=== PATIENT | male | born 1955 | race Caucasian/White ===

== ENCOUNTER 2022-08-07 17:00 | Emergency (ER) | payer MEDICARE, SELFPAY ==
[2022-08-07 17:01] VITALS: BP 228/114; PULSE 91; RESP 17; TEMP 36.3; O2SAT 97; BMI 28.8
[2022-08-07 17:30] VITALS: BP 204/117; PULSE 88
--- NOTE | 2022-08-07 17:34 | EX.ED.DYSGE1 ---
HPI History of Present Illness Chief Complaint: Hypertension Informant: patient Onset/Context/Timing Onset: Today Context: Gradual Onset Timing: Continuous Worsened by: Nothing Relieved by: Nothing Narrative Narrative: Patient presents with elevated blood pressure that was noticed today. Patient states he went to the [facility] clinic for routine physical. Patient states that they noted his blood pressure was elevated there. They started him on lisinopril 20 mg. Patient states he took 1 dose of this today. Patient states his blood pressure still is elevated. Patient states he was told to come to the emergency department to get some medicine through an IV to bring it down. Patient denies any symptoms. Patient states I feel fine. [facility] Medical History (Updated 08/07/22 @ 19:[address] Jeovanny Ontiveros DO) HTN (hypertension) Medical History no medical history no medical history Home Medications lisinopril 20 mg tablet 20 mg PO DAILY 08/07/22 [History Last Taken Unknown] tamsulosin 0.4 mg capsule 0.4 mg PO QHS 08/07/22 [History Last Taken Unknown] Allergy/AdvReac Type Severity Reaction Status Date / Time Penicillins Allergy Swelling Verified 08/07/22 17:04 Tetanus Vaccines and Toxoid Allergy Other Verified 08/07/22 17:04 HOT PEPPERS AdvReac Swelling Uncoded 08/07/22 17:04 Surgical History no surgical history no surgical history Social History Smoking Status: Former smoker ROS ROS ED Constitutional Constitutional ED: Denies chills or fever(s) Eyes Eyes: Denies blurry vision or change in vision ENT ENT ED: Denies rhinorrhea or sore throat Cardiovascular Cardiovascular: Denies chest pain or palpitations Respiratory/Chest Respiratory/Chest: Denies cough or dyspnea Gastrointestinal Gastrointestinal: Denies nausea or vomiting Genitourinary Genitourinary ED: Reports dysuria; Denies urinary frequency Musculoskeletal Musculoskeletal: Denies back pain or neck pain Integumentary Denies abscess or rash Neurologic Neurologic: Denies headache(s) or weakness Allergic/Immunologic Allergic/Immunologic ED: Denies mouth swelling or urticaria EXAM Physical Exam Const Vital Signs: 08/07/22 17:01 08/07/22 17:30 08/07/22 17:54 Temperature 97.3 F L Temperature Source Temporal Pulse Rate 91 88 Respiratory Rate 17 Respiratory Effort Normal Non-Labored Respiratory Pattern Normal Blood Pressure 228/114 H 204/117 H Blood Pressure Mean 152 146 Pulse Ox 97 Oxygen Delivery Method Room Air 08/07/22 19:09 Temperature Temperature Source Pulse Rate 72 Respiratory Rate 14 Respiratory Effort Respiratory Pattern Blood Pressure 163/98 H Blood Pressure Mean 119 Pulse Ox 95 Oxygen Delivery Method Room Air Positive well nourished and well developed General Appearance ED: well developed and NAD HEENT Reports moist mucous membranes Neck supple and no JVD Resp normal respiratory effort and clear to auscultation bilaterally Cardio regular rate, regular rhythm and no murmurs GI normal to inspection, nondistended, normoactive bowel sounds and non-tender Palpation: soft Extremity normal to inspection General Extremety ED: Negative for edema or tenderness General Extremity: Negative for edema Neuro oriented x3, CN's II-XII intact bilaterally and no sensory deficits noted Sensorium / Orientation: alert Motor Exam: strength 5/5 throughout Psych mental status grossly normal Skin no rashes or lesions noted MDM MDM MDM Narrative Medical decision making narrative: Differential diagnosis includes hypertensive urgency, uncontrolled hypertension, electrolyte abnormality, acute kidney injury, cardiac dysrhythmia, and cardiac ischemia. EKG will be obtained to assess for cardiac dysrhythmia and cardiac ischemia. CBC will be obtained to assess for leukocytosis and anemia. Basic metabolic profile will be obtained to assess for acute kidney injury and electrolyte abnormality. High-sensitivity troponin will be obtained to assess for cardiac ischemia. Chest x-ray will be obtained to assess for cardiomegaly and congestive heart failure. Lab Data Attestation: I reviewed the patient's lab results. Lab results narrative: CBC was reviewed and was within normal limits. Basic metabolic profile was reviewed and showed a mild hyponatremia of 131. Glucose was 153. The remainder was within normal limits. High-sensitivity troponin was reviewed and was normal at 36. Labs: Laboratory Results - last 24 hr 08/07/22 08/07/22 17:25 17:25 WBC 6.4 RBC 4.46 L Hgb 13.3 Hct 40.3 MCV 90.4 MCH 29.8 MCHC 33.0 RDW Std Deviation 45.9 H RDW Coeff of Janet 13.9 Plt Count 195 MPV 9.5 Immature Gran % (Auto) 0.300 Neut % (Auto) 43.9 L Lymph % (Auto) 43.9 H [place] % (Auto) 8.3 Eos % (Auto) 3.0 Baso % (Auto) 0.6 Absolute Neuts (auto) 2.8 Absolute Lymphs (auto) 2.79 Nucleated RBC % 0 Sodium 131 L Potassium 3.8 Chloride 101 Carbon Dioxide 25.0 Anion Gap 5 BUN 15 Creatinine 1.25 Estim Creat Clear Calc 53.96 Est GFR (MDRD) Af Amer 74 Est GFR (MDRD) Non-Af 61 BUN/Creatinine Ratio 12.0 Glucose 153 H Calcium 9.5 Troponin I High Sens 36 Radiography Diagnostic Testing: Clinical Impression(s) from Imaging Studies Chest X-Ray 08/07/22 17:59 IMPRESSION: No radiographic evidence of acute cardiopulmonary disease. Electronically Signed: Hans Martinez MD at 18:10 EDT , PA and lateral chest x-ray was obtained. There are 2 views. On my independent interpretation, lung butler are clear. There is normal cardiac silhouette. Bony thorax is normal. There is no acute process noted. Radiologist also interpreted the x-ray and agrees. EKG Initial EKG: Interpretation: Sinus Rhythm (With occasional PVCs with a rate of 86) and Non-Specific ST Changes Comments: EKG was obtained. On my independent interpretation, it showed a normal sinus rhythm with a rate of 86. WA interval, QRS interval, and QTc intervals were all normal. [place] was normal. There are nonspecific ST-T wave changes. Prior EKG tracings: not available for review Prior: No Prior Treatment and Re-Evaluation :: Patient was given a dose of labetalol here. Patient blood pressure improved to 163/98. Patient remained asymptomatic here in the emergency department. Patient has a HEART score of 3. Patient was advised to continue to monitor his blood pressure. Patient was instructed to continue his lisinopril as prescribed. Patient was instructed to follow-up with his primary care physician in 5 to 7 days. Patient understood and was agreeable with the plan. All questions were answered. Discharge Plan Triage Chief Complaint: Hypertension ED Provider: Jeovanny Ontiveros Dx/Rx/DC Orders Clinical Impression: Hypertension Instructions: ED Hypertension, Established Prescriptions: No Action lisinopril 20 mg tablet 20 mg PO DAILY tamsulosin 0.4 mg capsule 0.4 mg PO QHS Primary Care Provider: Medical Brandy Simons Referrals: Medical Brandy Simons [Primary Care Provider] - 5-7 Days Disposition Disposition: Home, Self Care
--- NOTE | 2022-08-07 17:41 | EKG12_ITS ---
Test Reason : HTN Blood Pressure : / mmHG Vent. Rate : 086 BPM Atrial Rate : 086 BPM P-R Int : 200 ms QRS Dur : 110 ms QT Int : 408 ms P-R-T Axes : 006 004 -35 degrees QTc Int : 488 ms Sinus rhythm with occasional Premature ventricular complexes Inferior infarct , age undetermined Abnormal ECG Confirmed by ANTON HEATON ([id number]), associate editor MANUEL COY ([id number]) on 08/13/2022 7:31:17 AM Referred By: Jeovanny Ontiveros Confirmed By:ANTON HEATON
[2022-08-07] MEDS: Labetalol (Prefilled) 20 MG/4 ML IV (17:50)
--- NOTE | 2022-08-07 17:51 | NURSING ---
NO OLD EKGS
--- NOTE | 2022-08-07 17:59 | RAD_ITS ---
INDICATION: Hypertension EXAMINATION/TECHNIQUE: X-RAY - XR Chest 2 Views COMPARISON: None. FINDINGS: LUNGS: No consolidation, edema or effusion. No pneumothorax. MEDIASTINUM AND CARDIOVASCULAR STRUCTURES: Cardiac silhouette not enlarged. Central airways and mediastinal contour are unremarkable. RAD/Chest PA and Lateral IMPRESSION: No radiographic evidence of acute cardiopulmonary disease. Electronically Signed: Hans Martinez MD at 18:10 EDT ,
[2022-08-07 18:05] LABS: Absolute Lymphocyte Count 2.79 X10^3/uL (0.83-4.51); Absolute Neutrophil Count 2.8 X10^3/uL (2.0-7.7); Basophil# 0.04 X10^3/uL; Basophil% 0.6 % (0-1); Eosinophil# 0.19 X10^3/uL; Hematocrit 40.3 % (40-54); Hemoglobin 13.3 g/dL (13.0-16.5); Lymphocyte # 2.79 X10^3/ul (0.83-4.51); Lymphocyte % 43.9 % (19-41); Mean Corpuscular Hgb 29.8 pg (27.0-32.0); Mean Corpuscular Volume 90.4 fL (80-94); Mean Platelet Vol. 9.5 fl (6.2-12.0); Monocyte# 0.53 X10^3/uL; Monocyte% 8.3 % (0-10); NRBC Flagged by Analyzer 0 % (0-5); Neutrophil # 2.79 X10^3/uL (2.7-7.7); Neutrophil % 43.9 % (47-70); Platelet Count 195 K/mm3 (150-450); RBC Distribution Width CV 13.9 % (11.6-14.6); RBC Distribution Width SD 45.9 fl (35.1-43.9); Red Blood Count 4.46 M/mm3 (4.6-6.2); White Blood Count 6.4 K/mm3 (4.4-11.0)
[2022-08-07 18:21] LABS: Anion Gap 5 (5-15); BUN 15 mg/dL (7-18); Calcium,Total 9.5 mg/dL (8.5-10.1); Chloride 101 mmol/L (98-107); Creatinine, Serum 1.25 mg/dL (0.70-1.30); EST Glomerular Filtration Rate 61 mL/min (>60); Est Glom Filt Rate - Afr Amer 74 mL/min (>60); Estimated Creatinine Clearance 53.96 ml/min; Glucose 153 mg/dL (74-106); Potassium 3.8 mmol/L (3.5-5.1); Sodium Level 131 mmol/L (136-145); Troponin-I HS 36 pg/mL (3.0-78.0)
[2022-08-07 19:09] VITALS: BP 163/98; PULSE 72; RESP 14; O2SAT 95
== END 2022-08-07 19:45 | disposition home or self-care (01) ==
PROVIDERS: Emergency Provider Emergency Medicine; Referring Provider Emergency Medicine; Visit Provider Emergency Medicine
DX: I10 Essential (primary) hypertension (principal); Z87.891 Personal history of nicotine dependence; R30.0 Dysuria
CPT/HCPCS: 71046; 80048; 84484; 85025; 93005; 96374; 99284; A4216

== ENCOUNTER 2022-08-08 09:54 | Outpatient (CLI) | payer MEDICARE, SELFPAY ==
[2022-08-08 11:14] LABS: Hemoglobin A1c 6.8 % (3.8-5.6)
[2022-08-08 11:17] LABS: Cholesterol 223 mg/dL (200); High Density Lipoprotein 44 mg/dL; PSA,Total - Annual Screen 6.03 ng/mL (0.00-4.00); Triglycerides 92 mg/dL; Very Low Density Lipoprotein 18 mg/dL (5-40)
[2022-08-08 16:45] LABS: T4 Free Direct 0.48 ng/dL (0.76-1.46)
== END 2022-08-08 23:59 | disposition home or self-care (01) ==
PROVIDERS: Referring Provider Nurse Practitioner Family; Visit Provider Nurse Practitioner Family
DX: I10 Essential (primary) hypertension (principal); B82.9 Intestinal parasitism, unspecified; Z12.5 Encounter for screening for malignant neoplasm of prostate; R94.6 Abnormal results of thyroid function studies
CPT/HCPCS: 36415; 80061; 83036; 84153; 84439; 84443; 87177; 87209; G0103

== ENCOUNTER → 2022-09-13 | Outpatient (CLI) | payer MEDICARE, SELFPAY ==
[2022-09-13 10:34] LABS: Hematocrit 39.1 % (40-54); Hemoglobin 13.1 g/dL (13.0-16.5); Mean Corp Hgb Conc 33.5 g/dL (32-36); Mean Corpuscular Hgb 29.8 pg (27.0-32.0); Mean Corpuscular Volume 88.9 fL (80-94); Mean Platelet Vol. 9.1 fl (6.2-12.0); Platelet Count 172 K/mm3 (150-450); RBC Distribution Width CV 13.1 % (11.6-14.6); RBC Distribution Width SD 42.9 fl (35.1-43.9); White Blood Count 6.2 K/mm3 (4.4-11.0)
[2022-09-13 11:05] LABS: Vitamin D,25 Hydroxy 35.8 ng/mL
[2022-09-13 11:17] LABS: Anion Gap 6 (5-15); BUN 29 mg/dL (7-18); BUN/Creat Ratio 16.4 RATIO (10-20); Calcium,Total 9.6 mg/dL (8.5-10.1); Chloride 96 mmol/L (98-107); Creatinine, Serum 1.77 mg/dL (0.70-1.30); EST Glomerular Filtration Rate 41 mL/min (>60); Est Glom Filt Rate - Afr Amer 49 mL/min (>60); Glucose 172 mg/dL (74-106); PSA,Total- Diagnostic 4.72 ng/mL (0.0-4.0); Potassium 4.4 mmol/L (3.5-5.1); Sodium Level 127 mmol/L (136-145); T4 Free Direct 0.92 ng/dL (0.76-1.46)
[2022-09-13 14:11] LABS: Microalbumin,Random Urine 31.1 mg/L (NO RANGE EST.)
== END | disposition home or self-care (01) ==
LOC: LAB 10:05
PROVIDERS: Referring Provider Nurse Practitioner Family; Visit Provider Nurse Practitioner Family
DX: I10 Essential (primary) hypertension (principal); E11.9 Type 2 diabetes mellitus without complications; E03.9 Hypothyroidism, unspecified; R97.20 Elevated prostate specific antigen [PSA]
CPT/HCPCS: 36415; 80048; 82043; 82306; 84153; 84439; 84443; 85027

== ENCOUNTER → 2022-09-27 | Outpatient (CLI) | payer MEDICARE, SELFPAY ==
[2022-09-27 11:05] LABS: Anion Gap 7 (5-15); BUN 21 mg/dL (7-18); BUN/Creat Ratio 12.5 RATIO (10-20); Calcium,Total 9.4 mg/dL (8.5-10.1); Chloride 101 mmol/L (98-107); Creatinine, Serum 1.68 mg/dL (0.70-1.30); EST Glomerular Filtration Rate 43 mL/min (>60); Est Glom Filt Rate - Afr Amer 52 mL/min (>60); Glucose 151 mg/dL (74-106); Potassium 4.5 mmol/L (3.5-5.1); Sodium Level 131 mmol/L (136-145)
== END | disposition home or self-care (01) ==
LOC: LAB 09:57
PROVIDERS: Referring Provider Nurse Practitioner Family; Visit Provider Nurse Practitioner Family
DX: N17.9 Acute kidney failure, unspecified (principal); E87.1 Hypo-osmolality and hyponatremia
CPT/HCPCS: 36415; 80048

== ENCOUNTER → 2022-10-10 | Outpatient (CLI) | payer MEDICARE, SELFPAY ==
--- NOTE | 2022-10-10 13:14 | STRESSREP ---
Stress Test Report Pharmacologic myocardial perfusion stress test. 67-year-old man with a history of dyspnea Resting EKG demonstrates sinus rhythm with a rate of 67 bpm and previous inferior infarct with T wave inversion in lead III. Resting blood pressure is 172/74 mmHg. 0.4 mg of regadenoson was infused per usual protocol followed by rapid intravenous saline flush injection. Continuous EKG monitoring was performed. The maximum heart rate was 94 bpm which was 62% of max impacted heart rate the maximum workload was 1 metabolic equivalent. At rest Q wave were noted in the inferior leads and during infusion there was approximately 1.[address] elevation noted in V3 and [address] elevation noted in lead aVF with reciprocal changes noted in 1 and aVL. Occasional premature ventricular complex was noted and these changes returned to normal postinfusion. No clinical angina was noted. The final blood pressure was 160/82 Myocardial perfusion protocol. 11.8 mCi of technetium 99m sestamibi was injected at rest. 0.4 mg of regadenoson was infused per usual protocol. At peak infusion 34.2 mCi of technetium 99m sestamibi was injected stress images were obtained stress and rest images were reconstructed and compared in the short axis vertical long and horizontal long axis. Gated images were also obtained. Perfusion SPECT analysis: Review of the stress images demonstrate normal uptake of tracer noted in all areas of the myocardium except for the inferior wall with a large perfusion defect involving the entire inferior wall. The resting images similar demonstrated normal uptake of tracer noted in all areas of the myocardium except for the inferior wall. The above is suggestive of an extensive previous inferior infarct. No ischemia is noted though mild tanvir-infarct ischemia cannot be completely excluded.. Gated SPECT analysis: The gated ejection fraction is 27%. Conclusion: Abnormal pharmacologic myocardial perfusion stress test. Reduced ejection fraction. 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
== END | disposition home or self-care (01) ==
PROVIDERS: Referring Provider Nurse Practitioner Family; Visit Provider Nurse Practitioner Family
DX: R06.00 Dyspnea, unspecified (principal); R94.31 Abnormal electrocardiogram [ECG] [EKG]; Z82.49 Family history of ischemic heart disease and other diseases of the circulatory system
CPT/HCPCS: 78452; 93017; A9500; A4216; J2785

== ENCOUNTER → 2022-10-23 | Outpatient (CLI) | payer MEDICARE, SELFPAY ==
[2022-10-23 10:40] LABS: ALB/GLOB Ratio 0.9 RATIO (0.9-2.4); AST(SGOT) 16 U/L (15-37); Alanine Aminotransfer ALT/SGPT 18 U/L (16-61); Albumin, Serum 3.9 g/dL (3.2-5.0); Alkaline Phosphatase 79 U/L (45-117); Anion Gap 5 (5-15); BUN 25 mg/dL (7-18); BUN/Creat Ratio 15.6 RATIO (10-20); CPK Total, Creatine Kinase 53 U/L (39-308); Chloride 101 mmol/L (98-107); Cholesterol 154 mg/dL (200); EST Glomerular Filtration Rate 46 mL/min (>60); Est Glom Filt Rate - Afr Amer 55 mL/min (>60); Globulin 4.2 g/dL (2.2-4.2); Glucose 126 mg/dL (74-106); High Density Lipoprotein 37 mg/dL; Potassium 4.8 mmol/L (3.5-5.1); Protein, Total 8.1 g/dL (6.4-8.2); Sodium Level 133 mmol/L (136-145); Triglycerides 117 mg/dL; Very Low Density Lipoprotein 23 mg/dL (5-40)
== END | disposition home or self-care (01) ==
LOC: LAB 08:35
PROVIDERS: Referring Provider Internal Medicine Cardiovascular Disease; Visit Provider Internal Medicine Cardiovascular Disease
DX: I42.9 Cardiomyopathy, unspecified (principal); E11.51 Type 2 diabetes mellitus with diabetic peripheral angiopathy without gangrene; I73.9 Peripheral vascular disease, unspecified; E78.5 Hyperlipidemia, unspecified; I25.10 Atherosclerotic heart disease of native coronary artery without angina pectoris; I10 Essential (primary) hypertension
CPT/HCPCS: 36415; 80053; 80061; 82550

== ENCOUNTER → 2022-11-11 | Outpatient (CLI) | payer MEDICARE, SELFPAY ==
--- NOTE | 2022-11-11 09:20 | ART_ITS ---
Reason For Study: PVD Procedure A bilateral lower extremity continuous wave Doppler with analog waveform analysis and ankle brachial indexes. Left Segmental Pressures Left brachial= 143mmHg. Left posterior tibial artery = 64mmHg. Left dorsalis pedis artery = 57mmHg. Left digit = 57 mmHg. The left posterior tibial artery waveforms are monophasic. The left dorsalis pedis waveforms are monophasic. Right Segmental Pressures Right brachial= 146mmHg. Right posterior tibial artery = 128mmHg. Right dorsalis pedis artery = 124mmHg. Right digit = 62 mmHg. The right posterior tibial artery waveforms are triphasic. The right dorsalis pedis waveforms are biphasic. Indices The right resting ankle brachial index is 0.88. The right ankle brachial index by the posterior tibial artery is 0.88. The right ankle brachial index by the dorsalis pedis is 0.85. The right digital-brachial index is 0.42. The left resting ankle brachial index is 0.44. The left ankle brachial index by the posterior tibial artery is 0.44. The left ankle brachial index by the dorsalis pedis is 0.39. The left digital-brachial index is 0.39. VL/Ankle Brachial Index Interpretation Summary Right LINDA 0.88, moderate arterial insufficiency. Doppler/PVR waveforms of the r ight ankle moderately diminished at rest. Left LINDA 0.44, severe arterial insufficiency. Doppler/PVR waveforms of the left ankle severely diminished at rest. Ordering Physician: Gabriela Colunga Referring Physician: [facility] Performed By: Dianelys Wyatt RVT, RDCS
--- NOTE | 2022-11-11 09:20 | ECHOCS_ITS ---
Reason For Study: SOB Procedure This was a 2D Doppler, Color Flow transthoracic echocardiogram. The study was technically difficult. Contrast injection was performed. Exam performed in department. Left Ventricle Moderately dilated left ventricle. The left ventricular ejection fraction is 35 %. There is moderate global hypokinesis of the left ventricle. Severe posterior and inferior hypokinesis. Right Ventricle Normal right ventricle. Atria The left and right atria are normal. Bubble contrast study is negative for PFO/ASD. Mitral Valve Mild (1+) mitral valve insufficiency. Tricuspid Valve Trivial tricuspid valve insufficiency. Unable to estimate RV systolic pressure due to insufficient tricuspid regurgitant envelope. Aortic Valve Aortic sclerosis, no stenosis. Pulmonic Valve The pulmonic valve is not well visualized. Great Vessels Normal sized aortic root. Pericardium/Pleural No pericardial effusion. Medication 22 gauge I.V. with prn adaptor inserted into right arm. Diluted definity 2ml given slow IV push to enhance endocardial definition. Performed a rapid injection of agitated mix of 9 cc saline and 1cc air to assess for atrial septal defect. MMode/2D Measurements & Calculations LVIDd: 6.6 cm IVSd: 0.93 cm LVOT diam: 2.0 cm LVIDs: 5.5 cm LVPWd: 0.91 cm RVDd: 3.8 cm FS: 17.6 % LVOT area: 3.2 cm2 Ao root diam: 3.2 cm LAV(MOD-bp): 52.3 ml LVAd ap4: 48.5 cm2 LA dimension: 3.6 cm LAV(MOD-bp) Indexed: 26.7 ml/m2 LVLd ap4: 8.8 cm LAV(MOD-sp2): 56.2 ml EDV(MOD-sp4): 213.3 ml LAV(MOD-sp4): 42.0 ml EDV(sp4-el): 226.9 ml LVAs ap4: 38.0 cm2 LVLs ap4: 8.5 cm ESV(MOD-sp4): 139.4 ml ESV(sp4-el): 145.0 ml EF(MOD-sp4): 34.7 % EF(sp4-el): 36.1 % SV(MOD-sp4): 74.0 ml SV(sp4-el): 81.9 ml Aortic Valve Planimetry: 1.3 cm2 LA A4 area: 16.0 cm2 RA A4 area: 11.8 cm2 TAPSE: 2.0 cm Time Measurements MV dec time: 0.26 sec Doppler Measurements & Calculations MV E max reji: 51.6 cm/sec Lat Peak E' Reji: 4.2 cm/sec Med Peak E' Reji: 4.3 cm/sec MV A max reji: 84.2 cm/sec E/E' lat: 12.3 E/E' med: 12.1 MV E/A: 0.61 MV V2 max: 105.3 cm/sec MV P1/2t max reji: 71.4 cm/sec Ao V2 max: 174.6 cm/sec MV max P.4 mmHg MV P1/2t: 79.0 msec Ao max P.2 mmHg MV V2 mean: 47.9 cm/sec MV dec slope: 264.7 cm/sec2 Ao V2 mean: 107.8 cm/sec MV mean P.1 mmHg MVA(P1/2t): 2.8 cm2 Ao mean P.5 mmHg MV V2 VTI: 34.4 cm Ao V2 VTI: 37.7 cm MVA(VTI): 2.0 cm2 AV (velocity ratio): 0.58 ANALY(I,D): 1.9 cm2 ANALY(V,D): 1.7 cm2 LV V1 max: 91.1 cm/sec SV(LVOT): 70.4 ml PA V2 max: 68.4 cm/sec LV V1 max P.3 mmHg PA V2 mean: 47.1 cm/sec LV V1 mean P.8 mmHg LV V1 mean: 62.5 cm/sec LV V1 VTI: 21.8 cm ECHO/Echo Complete W/ Contrast Interpretation Summary Moderately dilated left ventricle. The left ventricular ejection fraction is 35 %. There is moderate global hypokinesis of the left ventricle. Severe posterior and inferior hypokinesis. Aortic sclerosis, no stenosis. Ordering Physician: Gabriela Colunga Referring Physician: Gabriela Colunga Performed By: Amrit Cisse and Student
== END | disposition home or self-care (01) ==
PROVIDERS: Referring Provider Internal Medicine Cardiovascular Disease; Visit Provider Internal Medicine Cardiovascular Disease
DX: R06.02 Shortness of breath (principal); I73.9 Peripheral vascular disease, unspecified
CPT/HCPCS: 93306; 93922; Q9957; A4216; C8929

== ENCOUNTER → 2022-12-04 | Outpatient (CLI) | payer MEDICARE, SELFPAY ==
--- NOTE | 2022-12-04 07:45 | AAAS_ITS ---
Reason For Study: HTN, >30 pack year history smoking Aorta Measurements Aorta Doppler Measurements Proximal aorta measures2.35 x 2.36cm. in cross- Peak systolic flow velocities within the proximal sectional axis. aorta measure 95.9 cm/sec. Proximal aorta measures2.31cm. in longitudinal Peak systolic flow velocities within the mid aorta axis. measure 70.5 cm/sec. Mid aorta measures1.97 x 1.93cm. in cross- Peak systolic flow velocities within the distal sectional axis. aorta measure 68.7 cm/sec. Mid aorta measures1.90cm. in longitudinal axis. Distal aorta measures2.12 x 2.09cm. in cross- sectional axis. Distal aorta measures2.12cm. in longitudinal axis. Left Iliac Artery Left iliac artery measures 1.57 x 1.52 cm. in the cross-sectional axis. Left iliac artery measures 1.53 cm. in the longitudinal axis. Peak systolic velocity in the left iliac artery measures 54.8 cm/sec. Right Iliac Artery Right iliac artery measures 1.41 x 1.40 cm. in the cross-sectional axis. Right iliac artery measures 1.44 cm. in the longitudinal axis. Peak systolic velocity in the right iliac artery measures 39.5 cm/sec. Procedure Aorta IVC Iliac vasculature or bypass grafts [id number]. Exam performed in department. VL/AAA Screening Interpretation Summary Aorta patent, normal caliber Bilateral iliac arteries patent, normal caliber Ordering Physician: Shanique Green Referring Physician: [facility] Performed By: Kalyani Staley RVT
--- NOTE | 2022-12-04 07:45 | CDU_ITS ---
Reason For Study: Carotid artery disease Rt. Velocities/BP Lt. Velocities/BP Prox CCA 96.6/22 cm/sec. Prox CCA 119.5/27.4 cm/sec. Mid CCA 94.9/16.8 cm/sec. Mid CCA 88.8/22.5 cm/sec. Dist CCA 85/17.9 cm/sec. Dist CCA 85.1/21.2 cm/sec. Prox ICA 80.6/22.3 cm/sec. Prox ICA 82.6/28.6 cm/sec. Mid ICA 112.1/38.4 cm/sec. Mid ICA 80.2/28.6 cm/sec. Dist ICA 80.2/22.5 cm/sec. Dist ICA 102.8/37.1 cm/sec. Rt. ICA/CCA = 1.18. Lt. ICA/CCA = 1.16. Prox ECA 97.1/8 cm/sec. Prox ECA 132.1/11.5 cm/sec. Rt. Vert. 44.3/14.6 cm/sec. Lt. Vert. 45.4/17.9 cm/sec. Right Extracranial There is homogeneous, smooth atherosclerotic plaque noted in the right common carotid artery. There is heterogeneous, irregular atherosclerotic plaque noted in the right internal carotid artery. The atherosclerotic plaque causes acoustic shadowing. There is heterogeneous, irregular atherosclerotic plaque noted in the right external carotid artery. Antegrade flow is noted in the right vertebral artery. Left Extracranial There is homogeneous, smooth atherosclerotic plaque noted in the left common carotid artery. There is heterogeneous, irregular atherosclerotic plaque noted in the left internal carotid artery. There is heterogeneous, irregular atherosclerotic plaque noted in the left external carotid artery. Antegrade flow is noted in the left vertebral artery. Procedure This is a Carotid Duplex examination using B-mode, color flow and specral Doppler. Carotid Duplex [id number]. Exam performed in department. VL/Carotid Duplex Ultrasound Interpretation Summary Mild (<50%) stenosis right extracranial internal carotid. Mild (<50%) stenosis left extracranial internal carotid. Patent and antegrade vertebrals bilaterally. Ordering Physician: Shanique Green Referring Physician: [facility] Performed By: Kalyani Staley RVT
== END | disposition home or self-care (01) ==
PROVIDERS: Referring Provider Physician Assistant; Visit Provider Physician Assistant
DX: R42 Dizziness and giddiness (principal); I73.9 Peripheral vascular disease, unspecified; I10 Essential (primary) hypertension; Z87.891 Personal history of nicotine dependence
CPT/HCPCS: 76706; 93880

== ENCOUNTER → 2023-01-11 | Outpatient (CLI) | payer MEDICARE, SELFPAY ==
--- NOTE | 2023-01-11 09:40 | US_ITS ---
STUDY: RENAL ULTRASOUND - COMPLETE REASON FOR EXAM: Male, 67 years old. CKD3 TECHNIQUE: Ultrasound evaluation of the kidneys was performed with real-time and static wall-scale imaging. COMPARISON: None. FINDINGS: RIGHT KIDNEY: Normal location of the right kidney, which is normal in size. The right kidney measures 8.3 cm. Increased echogenicity the renal cortex consistent with chronic medical renal disease. The renal cortex measures 1.9 cm. There is no right renal mass or cyst. There are no right renal calculi. There is no right hydronephrosis. DISTAL RIGHT URETER: There is non-visualization of the distal right ureter. There is no demonstrated right ureterovesical junction calculus. There is a visualized right ureteral jet. LEFT KIDNEY: Normal location of the left kidney, which is normal in size. The left kidney measures 9.9 cm. Increased echogenicity the renal cortex consistent with chronic medical renal disease. The renal cortex measures 1.7 cm. There is no left renal mass or cyst. There are no left renal calculi. There is no left hydronephrosis. DISTAL LEFT URETER: There is non-visualization of the distal left ureter. There is no demonstrated left ureterovesical junction calculus. There is a visualized left ureteral jet. BLADDER: The distended urinary bladder has a volume of 103 ml. The empty urinary bladder has a volume of ml. There is a normal wall thickness of the distended urinary bladder. There is no demonstrated mass within the urinary bladder. There are no demonstrated bladder calculi. US/Kidney and Bladder IMPRESSION: Chronic medical renal disease but no hydronephrosis to suggest obstruction. Electronically Signed: Luis Woody MD at 20:35 EDT ,
== END | disposition home or self-care (01) ==
LOC: US 09:39
PROVIDERS: Referring Provider Internal Medicine Nephrology; Visit Provider Internal Medicine Nephrology
DX: N18.32 Chronic kidney disease, stage 3b (principal)
CPT/HCPCS: 76770

== ENCOUNTER → 2023-01-13 | Outpatient (CLI) | payer MEDICARE, SELFPAY ==
--- NOTE | 2023-01-13 12:53 | ECHOCS_ITS ---
Reason For Study: SOB Procedure This was a 2D Doppler, Color Flow transthoracic echocardiogram. Contrast injection was performed. Exam performed in department. Left Ventricle Mild eccentric left ventricular hypertrophy. Mildly dilated left ventricle. The estimated ejection fraction is 35 %. Stage 1 diastolic dysfunction. Severe inferior and apical hypokinesis. Right Ventricle Normal RV size. Normal systolic function. Atria The left and right atria are normal. Mitral Valve The mitral valve is structurally normal. No prolapse or stenosis seen. Trivial mitral valve insufficiency. Tricuspid Valve Normal tricuspid valve. Trivial tricuspid valve insufficiency. Right ventricular systolic pressure estimated to be 25 mmHg. Aortic Valve Aortic sclerosis, no stenosis. Pulmonic Valve The pulmonic valve is not well visualized. Great Vessels Mild atherosclerosis of the ascending aorta. Normal sized aortic root. Pericardium/Pleural No pericardial effusion. Medication 22 gauge I.V. with prn adaptor inserted into right arm. Diluted definity 3ml given slow IV push to enhance endocardial definition. MMode/2D Measurements & Calculations LVIDd: 4.8 cm IVSd: 1.2 cm Ao root diam: 3.7 cm LVIDs: 4.2 cm LVPWd: 0.96 cm LA dimension: 3.5 cm RVDd: 3.3 cm FS: 13.3 % LAV(MOD-bp): 37.6 ml LVAd ap4: 45.8 cm2 LVAd ap2: 48.7 cm2 LAV(MOD-bp) Indexed: 20.0 ml/m2 LVLd ap4: 9.2 cm LVLd ap2: 9.6 cm LAV(MOD-sp2): 40.0 ml EDV(MOD-sp4): 181.5 ml EDV(MOD-sp2): 199.6 ml LAV(MOD-sp4): 32.9 ml EDV(sp4-el): 192.6 ml EDV(sp2-el): 208.8 ml LVAs ap4: 38.6 cm2 LVAs ap2: 39.9 cm2 LVLs ap4: 9.1 cm LVLs ap2: 9.3 cm ESV(MOD-sp4): 134.9 ml ESV(MOD-sp2): 139.7 ml ESV(sp4-el): 139.6 ml ESV(sp2-el): 145.3 ml EF(MOD-sp4): 25.6 % EF(MOD-sp2): 30.0 % EF(sp4-el): 27.5 % SV(MOD-sp4): 46.5 ml SV(MOD-sp2): 59.8 ml SV(sp4-el): 53.0 ml LA A4 area: 13.7 cm2 RA A4 area: 13.2 cm2 TAPSE: 1.8 cm Time Measurements MV dec time: 0.23 sec Doppler Measurements & Calculations MV E max reji: 61.0 cm/sec Lat Peak E' Reji: 3.4 cm/sec Med Peak E' Reji: 3.4 cm/sec MV A max reji: 90.5 cm/sec E/E' lat: 17.8 E/E' med: 17.8 MV E/A: 0.67 MV V2 max: 96.4 cm/sec MV P1/2t max reji: 64.3 cm/sec Ao V2 max: 163.9 cm/sec MV max P.7 mmHg MV P1/2t: 81.8 msec Ao max P.8 mmHg MV V2 mean: 45.9 cm/sec Ao V2 mean: 104.0 cm/sec MV mean P.0 mmHg MV dec slope: 230.1 cm/sec2 Ao mean P.2 mmHg MV V2 VTI: 34.0 cm MVA(P1/2t): 2.7 cm2 Ao V2 VTI: 36.2 cm AV (velocity ratio): 0.65 LV V1 max: 97.3 cm/sec PA V2 max: 120.7 cm/sec TR max reji: 231.8 cm/sec LV V1 max P.8 mmHg TR max P.5 mmHg LV V1 mean P.1 mmHg LV V1 mean: 68.7 cm/sec LV V1 VTI: 23.5 cm ECHO/Echo Complete W/ Contrast Interpretation Summary The estimated ejection fraction is 35 %. Stage 1 diastolic dysfunction. Mild eccentric left ventricular hypertrophy. Mildly dilated left ventricle. Severe inferior and apical hypokinesis. The study was technically difficult. Contrast injection was performed. Ordering Physician: Gabriela Colunga Referring Physician: Gabriela Colunga Performed By: Amrit Villalobos RCS
== END | disposition home or self-care (01) ==
LOC: CVS 12:45
PROVIDERS: Referring Provider Internal Medicine Cardiovascular Disease; Visit Provider Internal Medicine Cardiovascular Disease
DX: R06.02 Shortness of breath (principal)
CPT/HCPCS: 93306; Q9957; A4216; C8929

== ENCOUNTER → 2023-03-24 | Outpatient (CLI) | payer MEDICARE, SELFPAY ==
[2023-03-24 11:31] LABS: Vitamin B12 227 pg/mL (211-911)
[2023-03-24 11:32] LABS: PSA,Total- Diagnostic 5.12 ng/mL (0.0-4.0); T4 Free Direct 0.97 ng/dL (0.76-1.46)
[2023-03-24 11:34] LABS: AST(SGOT) 17 U/L (15-37); Alanine Aminotransfer ALT/SGPT 20 U/L (16-61); CPK Total, Creatine Kinase 45 U/L (39-308); Cholesterol 130 mg/dL (200); High Density Lipoprotein 36 mg/dL; Triglycerides 94 mg/dL; Very Low Density Lipoprotein 19 mg/dL (5-40)
[2023-03-24 12:45] LABS: Microalbumin,Random Urine 12.5 mg/L (NO RANGE EST.)
== END | disposition home or self-care (01) ==
PROVIDERS: Referring Provider Internal Medicine Cardiovascular Disease; Visit Provider Internal Medicine Cardiovascular Disease
DX: E03.9 Hypothyroidism, unspecified (principal); E11.9 Type 2 diabetes mellitus without complications; R97.20 Elevated prostate specific antigen [PSA]; R54 Age-related physical debility
CPT/HCPCS: 80061; 82043; 82550; 82607; 84153; 84439; 84443; 84450; 84460

== ENCOUNTER → 2023-06-11 | Outpatient (CLI) | payer MEDICARE, SELFPAY ==
[2023-06-11 08:42] LABS: Hematocrit 42.1 % (40-54); Hemoglobin 13.5 g/dL (13.0-16.5); Mean Corp Hgb Conc 32.1 g/dL (32-36); Mean Corpuscular Hgb 29.5 pg (27.0-32.0); Mean Corpuscular Volume 91.9 fL (80-94); Mean Platelet Vol. 9.4 fl (6.2-12.0); Platelet Count 171 K/mm3 (150-450); RBC Distribution Width CV 12.9 % (11.6-14.6); RBC Distribution Width SD 43.4 fl (35.1-43.9); Red Blood Count 4.58 M/mm3 (4.6-6.2); White Blood Count 6.3 K/mm3 (4.4-11.0)
--- OUTSIDE RECORDS SUMMARY | 2023-06-11 08:49 | XMS RPT_ITS | CCD ---
Author Name Unknown Address [address] [place] [address] Organization [facility] Care Team Providers Care Application Support Lead Name Role Phone DAVID FORMAN Attending Unavailable DAVID FORMAN Admitting Unavailable RYAN CORCORAN Attending Unavailable DAVID FORMAN Attending Unavailable GABRIELA RODRÍGUEZ Referring Unavailable Allergies Allergy Classification Reported Allergen(s) Allergy Type Date of Onset Reaction(s) Facility (1 source) Penicillins; Translations: [PENICILLINS] Propensity to adverse reactions to drug (disorder) 3 [facility] Repository (1 source) TETANUS AND DIPHTHER. TOX (PF); Translations: [TETANUS AND DIPHTHER. TOX (PF)] Propensity to adverse reactions to drug (disorder) 3 [facility] Repository Problems Problem Classification Problem Date Documented Da te Episodic/Chronic Coronary atherosclerosis and other heart disease (3 sources) Ischemic cardiomyopathy; Translations: [Atherosclerotic heart disease of [place] coronary artery without angina pectoris] Onset: 04-02-2023 Chronic Diabetes mellitus without complication (1 source) Type 2 diabetes mellitus without complications; Translations: [Type 2 diabetes mellitus without complication, without long-term current use of insulin (HCC)] Onset: 04-02-2023 Chronic Tanvir-; endo-; and myocarditis; cardiomyopathy (except that caused by tuberculosis or sexually transmitted disease) (1 source) Cardiomyopathy, unspecified; Translations: [Cardiomyopathy, unspecified type (HCC)] Onset: 04-02-2023 Chronic Peripheral and visceral atherosclerosis (1 source) Peripheral vascular disease, unspecified; Translations: [Claudication of lower extremity (HCC)] Onset: 04-02-2023 Chronic Residual codes; unclassified (1 source) Other specified personal risk factors, not elsewhere classified; Translations: [At risk for sudden cardiac ] Onset: 05-28-2023 Episodic Results Test Name Value Interpretation Reference Range Facil ity Encounters Encounter Date Encounter Type Care Provider Facility Start: 06-02-2023 End: 06-03-2023 ambulatory DAVID FORMAN [facility] Start: 05-29-2023 End: 05-29-2023 ambulatory RYAN CORCORAN [facility] Start: 04-04-2023 End: 04-04-2023 ambulatory DAVID FORMAN [facility] Payers Date Payer Category Payer Medicare [id number] Clinical Note 06-03-2023 Note Date & Type Note Facility 06-03-2023 Note HNO ID: [id number] Author: MECHELLE EAGLE RN Service: Care Management Author Type: Registered Nurse Type: Care Mgt Initial Assessment Filed: 06/03/2023 09:31 Note Text: CARE MANAGEMENT: ASSESSMENT AND DISCHARGE PLAN SERVICE DATE: June 03, 2023 SERVICE TIME: 9:28 AM PCP: No primary care provider on file. Primary Contact: Extended Emergency Contact Information Primary Emergency Contact: Kristen Banerjee Mobile Relation: Daughter Preferred language: CHINESE Benzol Operator needed? No Admission Status: Ambulatory Surgery Insurance Provider: [employer] MEDICARE HMO Discharge Planning requested by: Per Department Practice Potential Transition Plans No Services Indicated;Home Advance Directives Current Living Arrangements and Support Lives with: Alone Type of Residence: Private Residence (House) Does the patient have to climb stairs at home?: Yes;stairs outside the home;stairs within the home (ranch home with steps to basement) Support: Family members How do you manage to accomplish the following: Independent: Ambulation;Bathe/Shower;Dress;Meals/[place] Prep;Going to the bathroom;Medication Management;Transportation to appointments/community Current Services/Equipment Current Post-Acute Service(s): None Discharge Planning Patient Goal(s): Be able to go home Jen[place] of Choice Explained: [place] of Choice Given: No Reason Not Given: No placements necessary Are you interested in bedside delivery of your medications? No Discharge Planning Participant(s): Patient Patient/Family Comments: Caregiver Assessment: Caregiver is ready, willing and able to meet the patient's needs as recommended by the inter-professional team: No Caregiver needed Transport at Discharge: Transportation Arrangements: Car Needs Prior to Discharge: Needs Prior to Discharge: Discharge Prescriptions Post-Acute Discharge Plan: Patient admitted to [facility] post defibrillator insertion. Patient from home in [place], alone. Ranch home / apartment with basement laundry. +drives. +PCP - Lauren Webb APRN [facility] ON CALL +Rx - [facility] -DME Anticipate patient will discharge home with self care when medically ready. Patient stated his daughter Kristen will most likely transport him home. SIGNATURE: Mechelle Eagle RN PATIENT NAME: Arnol Soto DATE: June 03, 2023 TIME: 9:28 AM CONTACT #: [phone] [facility] Progress note 06-03-2023 Note Date & Type Note Facility 06-03-2023 Note HNO ID: [id number] Author: GRETA ESPITIA RN Service: Electrophysiology Author Type: Registered Nurse Type: Progress Notes Filed: 06/03/2023 09:29 Note Text: POD1 ICD implant - interrogation and testing completed. Teaching deferred until dtr arrives.Preliminary report on chart; full report in Chart Review, cardiac tab. [facility] Progress note 05-29-2023 Note Date & Type Note Facility 05-29-2023 Note HNO ID: [id number] Author: RYAN CORCORAN APRN.ALESSANDRO Service: ? Author Type: Nurse Practitioner Type: Progress Notes Filed: 05/29/2023 12:07 Note Text: [facility] Cardiology Electrophysiology PRIMARY CARE PHYSICIAN: To use this Smartlink, specify the provider ID whose address you want to display, e.g., .PROVADDR[1 (where 1 is the provider ID). CHIEF COMPLAINT: Cardiovascular medicine follow-up for upcoming procedure. HISTORY OF PRESENT ILLNESS: Mr. Soto is a 67 year old male who presents today for follow-up regarding upcoming procedure. 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 Forman by his materials supervisor for evaluation of primary prevention ICD implantation. He was diagnosed with new onset heart failure with reduced ejection fraction, LVEF 35% October/2022. Nuclear stress test showed a large fixed perfusion defect involving the entire inferior wall, no inducible ischemia or significant tanvir-infarct ischemia noted. He was placed on GDMT including carvedilol, lisinopril and Farxiga, underwent repeat echocardiogram December/2022 with no change in ejection fraction. He reported prior history of syncope related to vasovagal mechanism, and as per family he had an episode of syncope about 2 years ago when he passed out after working in hot weather for a while. They then attributed it to possible dehydration and vasovagal syncope, did not seek medical evaluation. He was recommended implantation of single-chamber endocardial ICD for primary prevention of sudden cardiac . Interval History: The patient presents today to update his history and physical prior to upcoming procedure with Dr. Forman 06/02/2023. He reports having a little bit of a scratchy throat over the past week, he is accompanied by his daughter at today's appointment, she states he had some diarrhea last night, but seems to have resolved today. We discussed that if his symptoms worsen over the weekend that they call the office to speak to the on-call physician regarding proceeding with ICD implantation. He reports occasional palpitations, brief, not overly bothersome. He denies chest discomfort, shortness of breath, lightheadedness, dizziness, near-syncope or syncope. I reminded him he will be notified between 2-5 PM tomorrow with time to arrive at the hospital on day of procedure. He will be n.p.o. after midnight the night before procedure, may take his medications with a sip of water in the morning. He is ready to proceed with ICD implantation with Dr. Forman 06/02/2023, as scheduled. All questions answered to their apparent satisfaction. History reviewed. No pertinent past medical history. PAST SURGICAL HISTORY Procedure Laterality Date ANKLE BRACHIAL INDEX W/ WAVEFORM 11/11/2022 ECHOCARDIOGRAM 01/13/2023 ECHOCARDIOGRAM 11/11/2022 STRESS TEST 10/10/2022 US CAROTID ARTERIES NEIL VAS LAB 12/04/2022 Social History Tobacco Use Smoking status: Former Types: Cigarettes Quit date: 2020 Years since quittin.0 Smokeless tobacco: Never Substance Use Topics Alcohol use: Yes Comment: rarely Drug use: Never History reviewed. No pertinent family history. ALLERGIES Allergen Reactions Penicillins Rash Tetanus And Diphthe* Swelling As a child MEDICATIONS: levothyroxine (SYNTHROID) 75 mcg tablet Take 1 tablet by mouth once daily. aspirin, enteric coated (ASPIRIN, ENTERIC COATED) 81 mg EC tablet Take 1 tablet by mouth every afternoon. atorvastatin (LIPITOR) 10 mg tablet Take 10 mg by mouth daily at bedtime. carvedilol (COREG) 12.5 mg tablet Take 12.5 mg by mouth two times a day. TAKE WITH FOOD. FARXIGA 10 mg tablet Take 1 tablet by mouth every afternoon. lisinopril (ZESTRIL) 20 mg tablet Take 1 tablet by mouth every afternoon. tamsulosin (FLOMAX) 0.4 mg Take 0.4 mg by mouth every evening. REVIEW OF SYSTEMS: Review of Systems Constitutional: Negative for chills, diaphoresis and fever. HENT: Positive for sore throat ( scratchy ). Respiratory: Negative for cough, hemoptysis, sputum production, shortness of breath and wheezing. Cardiovascular: Positive for palpitations. Negative for chest pain, orthopnea, leg swelling and PND. Gastrointestinal: Positive for diarrhea (last evening). Negative for abdominal pain, constipation, heartburn, nausea and vomiting. Genitourinary: Negative for dysuria, frequency and urgency. Musculoskeletal: Negative for myalgias. Neurological: Negative for dizziness, loss of consciousness and headaches. Lightheaded with quick postural changes PHYSICAL EXAMINATION: BP 126/74 Pulse 75 Ht 5' 8 (1.73m) Wt 156 lb (70.8kg) SpO2 98% BMI 23.73 kg/(m2). Physical Exam Vitals and nursing note reviewed. Constitutional: General: He is not in acute distress. Appearance: He is not diaphoretic. HENT: Head: Norm (more content not included)... [facility] Progress note 04-04-2023 Note Date & Type Note Facility 04-04-2023 Note HNO ID: [id number] Author: David Forman MD Service: ? Author Type: Physician Type: Progress Notes Filed: 04/04/2023 12:38 PM Note Text: PRIMARY CARE PHYSICIAN: Outside PCP REFERRING PHYSICIAN: Gabriela Rodríguez [address] [address] No care merchandise team manager to display CHIEF COMPLAINT: CHF/ICD evaluation HISTORY OF PRESENT ILLNESS: Mr. Soto is a 67 year old male with PMH significant for HTN, hyperlipidemia, hypothyroidism, diabetes mellitus, CAD s/p inferior AZ, NICM/HFrEF(35%) who presents today as a referral for primary prevention ICD placement. Patient was referred by his materials supervisor for consideration for primary prevention ICD placement. He was recently diagnosed with new onset heart failure with reduced ejection fraction with an EF of 35% in October of this year. Nuclear stress test showed a large fixed perfusion defect involving the entire inferior wall. No inducible ischemia or significant tanvir-infarct ischemia noted. Patient was placed on guideline directed medical therapy with Coreg, lisinopril and Farxiga and underwent a repeat echocardiogram in December of this year with no change in ejection fraction. He presents today for consultation regarding primary prevention ICD placement. He does have a prior history of syncope related to vasovagal syncope. Denies any admissions for myocardial infarction. As per family he had an episode of syncope 2 years ago when he passed out after working in hot weather for a while. They then attributed it to possible dehydration and vasovagal syncope and did not seek medical evaluation. He denies any episodes of chest pain, excessive shortness of breath previously. He denies chest pain, shortness of breath, orthopnea, cough, edema, palpitations, PND, lightheadedness or syncope. I have confirmed and edited as necessary, the PFSH and ROS obtained by others. No past medical history on file. PAST SURGICAL HISTORY Procedure Laterality Date ANKLE BRACHIAL INDEX W/ WAVEFORM 11/11/2022 ECHOCARDIOGRAM 01/13/2023 ECHOCARDIOGRAM 11/11/2022 STRESS TEST 10/10/2022 US CAROTID ARTERIES NEIL VAS LAB 12/04/2022 SOCIAL HISTORY Social History Tobacco Use Smoking status: Former Types: Cigarettes Quit date: 2020 Years since quittin.9 Smokeless tobacco: Never Substance Use Topics Alcohol use: Yes Comment: rarely Drug use: Never No family history on file. ALLERGIES: ALLERGIES Allergen Reactions Penicillins Rash Tetanus And Diphthe* Swelling As a child MEDICATIONS: levothyroxine (SYNTHROID) 75 mcg tablet Take 1 tablet by mouth once daily. aspirin, enteric coated (ASPIRIN, ENTERIC COATED) 81 mg EC tablet Take 1 tablet by mouth every afternoon. atorvastatin (LIPITOR) 10 mg tablet Take 10 mg by mouth daily at bedtime. carvedilol (COREG) 12.5 mg tablet Take 12.5 mg by mouth two times a day. TAKE WITH FOOD. FARXIGA 10 mg tablet Take 1 tablet by mouth every afternoon. lisinopril (ZESTRIL) 20 mg tablet Take 1 tablet by mouth every afternoon. tamsulosin (FLOMAX) 0.4 mg Take 0.4 mg by mouth every evening. REVIEW OF SYSTEMS: As in HPI. PHYSICAL EXAMINATION: BP 107/68 Pulse 74 Wt 155 lb (70.3kg) SpO2 96% CARDIOVASCULAR MEDICINE TESTING: Electrocardiogram: Sinus rhythm with first-degree AV block, heart rate 70 bpm, inferior infarct, old. QRSd 96 ms. Echocardiogram:12/2022 LVEF 35%, stage I diastolic dysfunction. Mild eccentric LVH. Mildly dilated LV. Severe inferior and apical hypokinesis. Echocardiogram: 11/11/2022. Moderately dilated LV, LVEF 35%. Stress test: 10/10/2022. Normal uptake of tracer in all areas except for inferior wall with large perfusion defect involving the anterior inferior wall. This is a fixed defect and no ischemia is noted though mild tanvir-infarct ischemia cannot be excluded. I have personally reviewed the Electrocardiogram. ASSESSMENT/PLAN: 1. Ischemic cardiomyopathy - ICD9: 414.8, ICD10: I25.5 (primary diagnosis) - ECG B/O W INTERP (MED OFFICE) 2. Coronary artery disease involving [place] coronary artery of [place] heart without angina pectoris - ICD9: 414.01, ICD10: I25.10 3. Claudication of lower extremity (HCC) - ICD9: 443.9, ICD10: I73.9 4. Type 2 diabetes mellitus without complication, without long-term current use of insulin (HCC) - ICD9: 250.00, ICD10: E11.9 5. Primary hypertension - ICD9: 401.9, ICD10: I10 6. Hypothyroidism, unspecified type - ICD9: 244.9, ICD10: E03.9 IMPRESSION: Mr. Soto is a 67 year old male with PMH significant for HTN, hyperlipidemia, hypothyroidism, diabetes mellitus, CAD s/p inferior AZ, NICM/HFrEF(35%) who presents today as a referral for primary prevention ICD placement. Patient was diagnosed with new onset heart failure with reduced ejection fraction EF of 35% which has not improved with guideline directed medical therapy, stress test revealing no inducible ischemia but a large inferior scar. He (more content not included)... [facility] Summary Purpose Family History No Family History Records Found Advance Directives No Advanced Directives Records Found Additional Source Comments (unrecognized sect ion and content) No Status Records Found INFORMATION SOURCE (unrecogn ized section and content) FOR RECORDS PERTAINING TO PATIENTS WHO ARE OR HAVE BEEN ENROLLED IN A CHEMICAL DEPENDENCY/SUBSTANCEABUSE PROGRAM, SOME INFORMATION MAY BE OMITTED. This clinical summary was aggregated from multiple sources. Caution should be exercised in using it in the provision of clinical care. This summary normalizes information from multiple sources, and as a consequence, information in this document may materially change the coding, format and clinical context of patient data. In addition, data may be omitted in some cases. CLINICAL DECISIONS SHOULD BE BASED ON THE PRIMARY CLINICAL RECORDS. [facility] [employer] [facility]. provides no warranty or guarantee of the accuracy or completeness of information in this document.
[2023-06-11 09:18] LABS: PTHIN 64.1 pg/mL (18.4-80.1)
[2023-06-11 09:21] LABS: Vitamin D,25 Hydroxy 38.8 ng/mL
[2023-06-11 10:04] LABS: AST(SGOT) 18 U/L (15-37); Alanine Aminotransfer ALT/SGPT 20 U/L (16-61); Albumin, Serum 3.9 g/dL (3.2-5.0); Alkaline Phosphatase 95 U/L (45-117); Anion Gap 9 (5-15); BUN 37 mg/dL (7-18); BUN/Creat Ratio 21.5 RATIO (10-20); Calcium,Total 9.7 mg/dL (8.5-10.1); Chloride 107 mmol/L (98-107); Cholesterol 133 mg/dL (200); Creatinine, Serum 1.72 mg/dL (0.70-1.30); EST Glomerular Filtration Rate 42 mL/min (>60); Est Glom Filt Rate - Afr Amer 51 mL/min (>60); Globulin 3.9 g/dL (2.2-4.2); Glucose 134 mg/dL (74-106); High Density Lipoprotein 35 mg/dL; Phosphorus 3.7 mg/dL (2.5-4.9); Potassium 4.9 mmol/L (3.5-5.1); Protein, Total 7.8 g/dL (6.4-8.2); Sodium Level 139 mmol/L (136-145); Triglycerides 100 mg/dL; Very Low Density Lipoprotein 20 mg/dL (5-40)
[2023-06-13 10:44] LABS: T4 Total, Thyroxin 5.7 ug/dL (4.5-12.1)
== END | disposition home or self-care (01) ==
LOC: LAB 08:11
PROVIDERS: Physician Assistant Medical; Referring Provider Internal Medicine Nephrology; Visit Provider Internal Medicine Nephrology
DX: I12.9 Hypertensive chronic kidney disease with stage 1 through stage 4 chronic kidney disease, or unspecified chronic kidney disease (principal); N18.32 Chronic kidney disease, stage 3b; E03.9 Hypothyroidism, unspecified; E78.00 Pure hypercholesterolemia, unspecified
CPT/HCPCS: 36415; 80048; 80061; 80076; 82306; 83970; 84100; 84436; 84443; 85027

== ENCOUNTER → 2023-10-17 | Outpatient (CLI) | payer MEDICARE, SELFPAY ==
--- NOTE | 2023-10-17 07:40 | ART_ITS ---
Reason For Study: Claudication Procedure A bilateral lower extremity continuous wave Doppler with analog waveform analysis,segmental pressures,and ankle brachial indexes without exercise. Left Segmental Pressures Left brachial= 146mmHg. Left thigh = 138mmHg. Left calf = 128mmHg. Left posterior tibial artery = 98mmHg. Left dorsalis pedis artery = 86mmHg. Left digit = 70 mmHg. The left posterior tibial artery waveforms are monophasic. The left dorsalis pedis waveforms are monophasic. Right Segmental Pressures Right brachial= 156mmHg. Right calf = 182mmHg. Right posterior tibial artery = 153mmHg. Right dorsalis pedis artery = 101mmHg. Right digit = 100 mmHg. The right posterior tibial artery waveforms are triphasic. The right dorsalis pedis waveforms are biphasic. Indices The right ankle brachial index by the posterior tibial artery is 0.98. The right ankle brachial index by the dorsalis pedis is 0.65. The right digital-brachial index is 0.64. The left ankle brachial index by the posterior tibial artery is 0.63. The left ankle brachial index by the dorsalis pedis is 0.55. The left digital-brachial index is 0.45. VL/Lower Ext Art Exam w/o Exercis Interpretation Summary Triphasic and biphasic Doppler waveforms are noted at ankle level on the right. Monophasic Doppler waveforms are noted at ankle level on the left. Pulse-volume recordings appear diminished at calf, ankle, and digital levels on the left. The resting right ankle-brachial index i s normal. The resting left ankle-brachial index is moderately diminished. The right digital-brachial index is mildly diminished. The left digital-brachial index is moderately diminished. Arterial flow appears normal at ankle level on the right. There is evidence of mild arterial occlusive disease at digital level on the right. There is evidence of moderate arterial occlusive disease at ankle and digital levels on the left. Ordering Physician: Destini Ricketts Referring Physician: Lauren Webb Performed By: Shawn Russell RVT
== END | disposition home or self-care (01) ==
LOC: CVS 07:37
PROVIDERS: PCP Nurse Practitioner Family; Referring Provider Physician Assistant Medical; Visit Provider Physician Assistant Medical
DX: I73.9 Peripheral vascular disease, unspecified (principal)
CPT/HCPCS: 93923

== ENCOUNTER → 2023-11-18 | Outpatient (CLI) | payer MEDICARE, SELFPAY ==
[2023-11-18 08:24] LABS: Hematocrit 41.3 % (40-54); Hemoglobin 13.5 g/dL (13.0-16.5); Mean Corp Hgb Conc 32.7 g/dL (32-36); Mean Corpuscular Hgb 30.4 pg (27.0-32.0); Mean Platelet Vol. 9.2 fl (6.2-12.0); Platelet Count 149 K/mm3 (150-450); RBC Distribution Width CV 14.1 % (11.6-14.6); RBC Distribution Width SD 47.7 fl (35.1-43.9); Red Blood Count 4.44 M/mm3 (4.6-6.2); White Blood Count 5.7 K/mm3 (4.4-11.0)
[2023-11-18 09:03] LABS: PTHIN 77.7 pg/mL (18.4-80.1)
[2023-11-18 09:07] LABS: Vitamin D,25 Hydroxy 34.7 ng/mL
[2023-11-18 09:10] LABS: Albumin, Serum 3.8 g/dL (3.2-5.0); BUN 29 mg/dL (7-18); BUN/Creat Ratio 16.6 RATIO (10-20); Calcium,Total 9.4 mg/dL (8.5-10.1); Chloride 106 mmol/L (98-107); Creatinine, Serum 1.75 mg/dL (0.70-1.30); EST Glomerular Filtration Rate 41 mL/min (>60); Est Glom Filt Rate - Afr Amer 50 mL/min (>60); Glucose 124 mg/dL (74-106); Phosphorus 3.4 mg/dL (2.5-4.9); Potassium 4.9 mmol/L (3.5-5.1); Sodium Level 136 mmol/L (136-145)
[2023-11-18 11:43] LABS: Protein, Urine (Random) 17.5 mg/dL (<11.9); Protein:Creat Ratio 162 mg/g CRE (0-200)
== END | disposition home or self-care (01) ==
PROVIDERS: PCP Nurse Practitioner Family; Visit Provider Internal Medicine Nephrology
DX: N18.32 Chronic kidney disease, stage 3b (principal)
CPT/HCPCS: 36415; 80069; 82306; 82570; 83970; 84156; 85027

== ENCOUNTER → 2024-05-24 | Outpatient (CLI) | payer MEDICARE, SELFPAY ==
[2024-05-24 10:49] LABS: Absolute Lymphocyte Count 2.39 X10^3/uL (0.83-4.51); Absolute Neutrophil Count 2.9 X10^3/uL (2.0-7.7); Basophil# 0.04 X10^3/uL; Basophil% 0.7 % (0-1); Eosinophil# 0.27 X10^3/uL; Eosinophils% 4.5 % (0-5); Hematocrit 43.1 % (40-54); Hemoglobin 14.1 g/dL (13.0-16.5); Lymphocyte # 2.39 X10^3/ul (0.83-4.51); Lymphocyte % 39.5 % (19-41); Mean Corp Hgb Conc 32.7 g/dL (32-36); Mean Corpuscular Hgb 31.1 pg (27.0-32.0); Mean Corpuscular Volume 95.1 fL (80-94); Mean Platelet Vol. 8.9 fl (6.2-12.0); Monocyte# 0.41 X10^3/uL; Monocyte% 6.8 % (0-10); NRBC Flagged by Analyzer 0 % (0-5); Neutrophil # 2.93 X10^3/uL (2.7-7.7); Neutrophil % 48.3 % (47-70); Platelet Count 171 K/mm3 (150-450); RBC Distribution Width CV 14.1 % (11.6-14.6); RBC Distribution Width SD 49.1 fl (35.1-43.9); Red Blood Count 4.53 M/mm3 (4.6-6.2); White Blood Count 6.1 K/mm3 (4.4-11.0)
[2024-05-24 11:25] LABS: AST(SGOT) 16 U/L (15-37); Alanine Aminotransfer ALT/SGPT 25 U/L (16-61); Albumin, Serum 3.9 g/dL (3.2-5.0); Alkaline Phosphatase 105 U/L (45-117); Anion Gap 4 (5-15); BUN 25 mg/dL (7-18); BUN/Creat Ratio 15.1 RATIO (10-20); Calcium,Total 9.4 mg/dL (8.5-10.1); Chloride 106 mmol/L (98-107); Cholesterol 148 mg/dL (200); Creatinine, Serum 1.66 mg/dL (0.70-1.30); EST Glomerular Filtration Rate 44 mL/min (>60); Est Glom Filt Rate - Afr Amer 53 mL/min (>60); Globulin 4.1 g/dL (2.2-4.2); Glucose 145 mg/dL (74-106); High Density Lipoprotein 38 mg/dL; Potassium 4.6 mmol/L (3.5-5.1); Sodium Level 137 mmol/L (136-145); T4 Free Direct 0.95 ng/dL (0.76-1.46); Triglycerides 167 mg/dL; Very Low Density Lipoprotein 33 mg/dL (5-40)
[2024-05-24 11:26] LABS: Microalbumin,Random Urine 9.9 mg/L (NO RANGE EST.); Protein, Urine (Random) 13.9 mg/dL (<11.9); Protein:Creat Ratio 132 mg/g CRE (0-200)
[2024-05-24 15:40] LABS: Phosphorus 3.1 mg/dL (2.5-4.9)
== END | disposition home or self-care (01) ==
LOC: LAB 10:25
PROVIDERS: Physician Assistant Medical; PCP Nurse Practitioner Family; Referring Provider Nurse Practitioner Family; Visit Provider Nurse Practitioner Family
DX: I12.9 Hypertensive chronic kidney disease with stage 1 through stage 4 chronic kidney disease, or unspecified chronic kidney disease (principal); E11.22 Type 2 diabetes mellitus with diabetic chronic kidney disease; N18.32 Chronic kidney disease, stage 3b; E03.9 Hypothyroidism, unspecified
CPT/HCPCS: 36415; 80053; 80061; 82043; 82306; 82570; 82652; 83970; 84100; 84156; 84439; 84443; 85025

== ENCOUNTER → 2024-11-12 | Outpatient (CLI) | payer MEDICARE, SELFPAY ==
--- OUTSIDE RECORDS SUMMARY | 2024-11-12 06:39 | XMS RPT_ITS | CCD ---
Author Organization [facility] Care Team Providers Care Case Aide Name Role Phone [facility] Primary [facility] Pro vider Jon MASS COMMUNICATIONS PROFESSOR, MASS COMMUNICATIONS PROFESSOR-C Lauren Referring Provider Jon MASS COMMUNICATIONS PROFESSOR, MASS COMMUNICATIONS PROFESSOR-C Lauren Other Provider Dr. Moose Espinosa Attending Provider [phone] [facility] Referring Provid er Dr. Gabriela Rodríguez Attending Provider Dr. Jeovanny Malave Attending Provider [phone] Gabriela Rodríguez Referring Provider [phone] LUISITO Porras Attending Provider [phone] LUISITO Porras Referring Provider [phone] Roof MASS COMMUNICATIONS PROFESSOR, AISLINN-Ninoska Gill Attending Provider [facility] Pro vider Dr. Jeovanny Malave Attending Provider [phone] LUISITO Porras Referring Provider [phone] [facility] Referring Provid er Dr. Gabriela Rodríguez Attending Provider Roof MASS COMMUNICATIONS PROFESSOR, MASS COMMUNICATIONS PROFESSOR-Ninoska Gill Attending Provider Dr. Rivera Dooley Attending Provider DAVID KOTHARI Attending Unavailable DAVID KOTHARI Admitting Unavailable DONYA CORCORAN Attending Unavailable DAVID KOTHARI Attending Unavailable GABRIELA RODRÍGUEZ Referring Unavailable [facility] Primary [facility] Pro vider [facility] Referring Provid er Dr. Gabriela Rodríguez Attending Provider Dr. Moose Espinosa Attending Provider Rizwana Kellogg Attending Provider Unavailable Jon MASS COMMUNICATIONS PROFESSOR-C, Lauren Primary Care Provider Jon MASS COMMUNICATIONS PROFESSOR-C, Lauren Attending Provider Jon MASS COMMUNICATIONS PROFESSOR-C, Lauren Referring Provider Devin MASS COMMUNICATIONS PROFESSOR-C, Nona Other Provider Destini Melton Other Provider Jesús WALLIS, Dr. Virk Attending Provider [facility] Arieldanny Referring Provid er Jon MASS COMMUNICATIONS PROFESSOR-C, Lauren Primary Care Provider Jon MASS COMMUNICATIONS PROFESSOR-C, Lauren Referring Provider Keanu WALLIS, Dr. Ochoa Attending Provider Moose Espinosa Attending Unavailable Jon VSC, Lauren Primary Care Unavailabl e Jon VSC, Lauren Primary Care Unavailabl e Moose Espinosa Attending Unavailable [place], [facility] Referring Unavailable Destini Melton Attending Unavail able Jon VSC, Lauren Primary Care Unavailabl e Jon VSC, Lauren Primary Care Unavailabl e Moose Espinosa Attending Unavailable Gabriela Rodríguez Attending Unavailable Gabriela Rodríguez Referring Unavailable Jon VSC, Lauren Primary Care Unavailabl e Carroll Martinez Attending Unavailable Jon VSC, Lauren Primary Care Unavailabl e Nona Beltran Consulting Unavailable Jon VSC, Lauren Primary Care Unavailabl e Jon VSC, Lauren Attending Unavailabl e Jon VSC, Lauren Referring Unavailabl e Destini Melton Consulting Unavail able Jon VSC, Lauren Primary Care Unavailabl e [place], [place] Ivette Referring Unavailable Moose Espinosa Attending Unavailable Jon VSC, Lauren Primary Care Unavailabl e JesúsMoose rivera Attending Unavailable Jesús, Moose Attending Unavailable Jon VSC, Lauren Primary Care Unavailabl e Gabriela Rodríguez Attending Unavailable [facility] Referring Unavailabl e [facility] Unavailabl e Mosoe Espinosa Attending Unavailable [facility], [facility] Unavailabl e Allergies Allergy Classification Reported Allergen(s) Allergy Type Date of Onset Reaction(s) Facility (12 sources) Penicillins; Translations: [PENICILLINS] Allergy to substance 3 [facility] (12 sources) Food Allergies: Uncoded; Translations: [Food Allergies: Uncoded] Allergy to substance 3 [facility] Comment on above: hot pepper (11 sources) Tetanus Vaccines and Toxoid Allergy to substance 3 Other, [facility] (1 source) TETANUS AND DIPHTHER. TOX (PF); Translations: [TETANUS AND DIPHTHER. TOX (PF)] Propensity to adverse reactions to drug (disorder) 3 [facility] (1 source) Penicillins Drug allergy (disorder) 5 [facility] (1 source) Tetanus Vaccines and Toxoid Drug allergy (disorder) 5 [facility] Medications Current Medications Medication Drug Class(es) Dates Sig (Normalized) Sig (Original) aspirin 81 mg delayed release oral tablet (14 sources) Platelet Aggregation Inhibitor, Nonsteroidal Anti-inflammatory Drug Start: 10-22-2022 End: 12-04-2022 take 1 tablet by mouth once daily Aspirin 81 mg tablet,delayed release (DR/EC) Active 81 mg PO DAILY December 04, 2022 11:21am atorvastatin 20 mg oral tablet (17 sources) HMG-CoA Reductase Inhibitor Start: 10-01-2023 take 10 mg by mouth at bedtime Atorvastatin 20 mg tablet Active 10 mg PO AT BEDTIME October 01, 2023 11:17am Start: 11-26-2022 End: 10-01-2023 take 1 tablet by mouth at bedtime Atorvastatin 20 mg tablet Discontinued 20 mg PO AT BEDTIME November 26, 2022 12:00am October 01, 2023 11:17am Start: 10-16-2022 End: 11-26-2022 take 1 tablet by mouth at bedtime Atorvastatin 10 mg tablet Discontinued 10 mg PO AT BEDTIME October 16, 2022 12:00am November 26, 2022 2:40pm cholecalciferol 0.35 mg oral capsule (1 source) Vitamin D Start: 09-28-2024 take 1 capsule by mouth every week Cholecalciferol (Vitamin D3) 350 mcg (14,000 unit) capsule Active 350 ug PO EVERY WEEK September 28, 2024 12:00am levothyroxine sodium 0.05 mg oral tablet (19 sources) l-Thyroxine Start: 10-01-2023 Levothyroxine 50 mcg tablet Active 75 ug PO DAILY October 01, 2023 11:17am Start: 10-22-2022 End: 10-01-2023 take 1 tablet by mouth once daily Levothyroxine 50 mcg tablet Discontinued 50 ug PO DAILY October 22, 2022 12:00am October 01, 2023 11:17am Start: 10-16-2022 End: 10-22-2022 take 1 tablet by mouth once daily Levothyroxine (Synthroid) 25 mcg tablet Discontinued 25 ug PO DAILY October 16, 2022 12:00am October 22, 2022 10:15am lisinopril 20 mg oral tablet (11 sources) Angiotensin Converting Enzyme Inhibitor Start: 08-07-2022 take 1 tablet by mouth once daily Lisinopril 20 mg tablet Active 20 mg PO DAILY August 07, 2022 12:00am Completed/Discontinued Medications Medication Drug Class(es) Dates Sig (Normalized) Sig (Original) carvedilol 12.5 mg oral tablet (20 sources) alpha-Adrenergic Rere, beta-Adrenergic Rere Start: 12-04-2022 End: 03-01-2024 take 1 tablet by mouth twice daily at mealtime Carvedilol 12.5 mg tablet Discontinued 12.5 mg PO TWICE A DAY 180 April 01, 2023 12:24pm March 01, 2024 8:56am must administer with a meal/food Start: 11-12-2022 End: 12-04-2022 take 1 tablet by mouth twice daily at mealtime Carvedilol 6.25 mg tablet Discontinued 6.25 mg PO TWICE A DAY 60 November 12, 2022 12:00am December 04, 2022 11:20am must administer with a meal/food Start: 10-22-2022 End: 11-12-2022 take 1 tablet by mouth twice daily at mealtime Carvedilol 3.125 mg tablet Discontinued 3.125 mg PO TWICE A DAY 60 October 22, 2022 12:00am November 12, 2022 4:11pm must administer with a meal/food dapagliflozin 10 mg oral tablet (15 sources) Sodium-Glucose Cotransporter 2 Inhibitor Start: 11-12-2022 End: 08-14-2023 take 1 tablet by mouth once daily Dapagliflozin Propanediol (Farxiga) 10 mg tablet Discontinued 10 mg PO DAILY 90 August 07, 2023 12:00am August 14, 2023 10:25am hydroCHLOROthiazide 12.5 mg oral capsule (9 sources) Thiazide Diuretic Start: 10-16-2022 End: 10-22-2022 take 1 capsule by mouth once daily Hydrochlorothiazide 12.5 mg capsule Discontinued 12.5 mg PO DAILY October 16, 2022 12:00am October 22, 2022 10:15am metFORMIN hydrochloride 500 mg oral tablet (9 sources) Biguanide Start: 10-16-2022 End: 03-12-2023 take 1 tablet by mouth once daily Metformin 500 mg tablet Discontinued 500 mg PO DAILY October 16, 2022 12:00am March 12, 2023 3:11pm tamsulosin hydrochloride 0.4 mg oral capsule (11 sources) alpha-Adrenergic Rere Start: 08-07-2022 End: 04-08-2024 take 1 capsule by mouth at bedtime Tamsulosin 0.4 mg capsule Discontinued 0.4 mg PO AT BEDTIME August 07, 2022 12:00am April 08, 2024 2:52pm Problems Problem Classification Problem Date Documented Date Episodic/Chronic Chronic kidney disease (1 source) Chronic kidney disease; Translations: [Chronic kidney disease, stage 3b] Onset: 12-06-19 Conditions associated with dizziness or vertigo (9 sources) Dizziness; Translations: [Dizziness and giddiness] 10-16-2022 Episodic Conduction disorders (8 sources) Automatic implantable cardiac defibrillator in situ; Translations: [Presence of automatic (implantable) cardiac defibrillator] Onset: 09-29-1906-09-2023 Chronic Comment on above: SICD implant at [facility] DR. Kothari on 06/02/23 Coronary atherosclerosis and other heart disease (20 sources) Coronary arteriosclerosis; Translations: [Atherosclerotic heart disease of [place] coronary artery without angina pectoris] Onset: 04-02-2010-22-2022 Chronic Diabetes mellitus without complication (20 sources) Diabetes mellitus; Translations: [Type 2 diabetes mellitus without complications] Onset: 04-02-2010-16-2022 Chronic Disorders of lipid metabolism (20 sources) Hyperlipidemia; Translations: [Hyperlipidemia, unspecified] Onset: 09-29-1910-16-2022 Chronic Essential hypertension (20 sources) Hypertensive disorder; Translations: [Essential (primary) hypertension] Onset: 09-29-1908-15-2022 Chronic Hypertension with complications and secondary hypertension (1 source) Hypertensive chronic kidney disease with stage 1 through stage 4 chronic kidney disease, or unspecified chronic kidney disease; Translations: [Hypertensive chronic kidney disease with stage 1 through stage 4 chronic kidney disease, or unspecified chronic kidney disease] Onset: 06-09-19 Chronic Malaise and fatigue (9 sources) Fatigue; Translations: [Other fatigue] 10-16-2022 Episodic Other gastrointestinal disorders (4 sources) Occult blood in stools; Translations: [Other fecal abnormalities] 03-27-2023 Episodic Other gastrointestinal disorders (2 sources) Other fecal abnormalities; Translations: [Nonspecific abnormal findings in stool contents] 03-27-2023 Episodic Other lower respiratory disease (9 sources) Dyspnea on exertion; Translations: [Shortness of breath] 10-16-2022 Episodic Other screening for suspected conditions (not mental disorders or infectious disease) (13 sources) Cardiovascular stress test abnormal; Translations: [Abnormal result of other cardiovascular function study] 10-16-2022 Episodic Imani-; endo-; and myocarditis; cardiomyopathy (except that caused by tuberculosis or sexually transmitted disease) (20 sources) Cardiomyopathy; Translations: [Cardiomyopathy, unspecified] Onset: 04-02-2010-22-2022 Chronic Peripheral and visceral atherosclerosis (20 sources) Intermittent claudication; Translations: [Peripheral vascular disease, unspecified] Onset: 04-02-2010-22-2022 Chronic Comment on above: LINDA 11/11/22 Interpre tation Summary:Right LINDA 0.88, moderate arterial insufficiency. Doppler/PVR waveforms of the right ankle moderatelydiminished at rest.Left LINDA 0.44, severe arterial insufficiency. Doppler/PVR waveforms of the left ankle severelydiminished at rest. Residual codes; unclassified (1 source) Other specified personal risk factors, not elsewhere classified; Translations: [At risk for sudden cardiac ] Onset: 05-28-19 Episodic Screening and history of mental health and substance abuse codes (6 sources) Tobacco use and exposure - finding; Translations: [Personal history of nicotine dependence] 11-27-2022 Episodic Thyroid disorders (13 sources) Hypothyroidism; Translations: [Hypothyroidism, unspecified] Onset: 09-29-1912-04-2022 Chronic Results Test Name Value Interpretation Reference Range Facility Cardiology Visit Reporton Cardiology Visit Report [facility] [address] [place] [address] OFFICE VISIT Date of Service: 09/28/24 MR#: [id number] Acct: [id number] Name: NAYELY SOTO Rep #: [id number] : 1955 Provider: Dr. Gabriela Rodríguez MD Age/Sex: 69/M Location[place] [facility] Status: Signed HPI HPI History of Present Illness Details: This gentleman with history of inferior myocardial infarction, diagnosed on nuclear stress test and ECG, peripheral arterial disease, dyslipidemia and ischemic cardiomyopathy is here for follow-up visit. Denies any chest pains either at rest or with exertion. No shortness of breath. No orthopnea or PND. No ankle edema. Denies any palpitations. Patient has claudication symptoms of the left calf with walking long distance. According to him, it does not interfere with his lifestyle. Intake Vital Signs 04/08/24 13:34 09/28/24 07:35 Height 5 ft 8 in 5 ft 8 in Weight: 172 lb BMI 26.1 BP 113/70 Blood Pressure Location Lt brachial Position Sitting Respiration 16 Pulse 62 Pulse Source NIBP Intake Visit Reasons: 6 M FU Lending Consultant Required: No Accompanied by: Daughter Is patient in pain?: No Allergies Tetanus Vaccines and Toxoid Allergy (Intermediate, Verified 09/28/24 12:39) Swelling Food Allergies: Uncoded Allergy (Verified 09/28/24 12:39) Swelling Penicillins Allergy (Verified 09/28/24 12:39) Swelling Medications ???Medication ???Instructions ???Recorded ???Confirmed ???Type lisinopril 20 mg tablet 20 mg PO DAILY 08/07/22 09/28/24 H istory aspirin 81 mg tablet,delayed 81 mg PO DAILY #90 tabs 12/04/22 0 09/28/24 Rx release dapagliflozin propanediol 10 mg 10 mg PO DAILY GENERIC for [facility] 08/14/23 09/28/24 History tablet atorvastatin 20 mg tablet 10 mg PO QHS 10/01/23 09/28/24 His tory levothyroxine 50 mcg tablet 75 mcg PO DAILY 10/01/23 09/28/24 History carvedilol 12.5 mg tablet 12.5 mg PO BID #180 TABLETS 09/28/24 Rx cholecalciferol (vitamin D3) 350 350 mcg PO QWEEK 09/28/24 09/28/24 History mcg (14,000 unit) capsule Ejection fraction %: 35 Have you fallen in the past year?: No PFSH Medical History Abnormal stress test Cardiomyopathy Claudication of lower extremity Coronary artery disease Diabetes mellitus Dizziness Dyslipidemia Fatigue History of smoking HTN (hypertension) Hyperlipidemia Hypothyroidism Peripheral artery disease Surgical History Presence of implantable cardioverter-defibril lator (ICD) Family History Brother Cancer prostate Other Heart disease Social History Smoking Status: Former smoker how long ago did patient quit smokinyr alcohol intake: current alcohol intake frequency: a few times a month substance use type: does not use caffeine: Yes Type: carbonated beverages ROS Const Const: Negative for fatigue, weakness, headache(s) or weight gain ENT ENT: Negative for headache(s), dizziness, Nosebleed/epistaxis or balance problems Cardio Chest Pain: No Palpitations: No Edema: None Muscle aches with walking: None Resp Respiratory: Negative for SOB with activity, SOB at rest or SOB orthopnea SOB lying down GI GI: Negative nausea, vomiting or heartburn Musc Musc: Negative for muscle aches/ myalgia, muscle weakness, joint pain or balance problems Neuro Neuro: Negative for dizziness, lightheadedness, near syncope, syncope, headache(s) or weakness Endo Endo: Negative for fatigue Cardiology Exam Const Appearance: comfortable and no acute distress Nutritional Appearance: well nourished Neck Neck: no JVD Carotids: Negative bruit Chest Auscultation: Bilateral: Clear to Auscultation Cardio Rate: regular rate Rhythm: regular rhythm Heart sounds: S1 normal and S2 normal Neuro General: patient alert, patient awake and patient oriented x3 Extremities Lower Extremity Edema: None: Bilateral Supplemental Info Supplemental Information Echocardiogram 01/13/2023: Interpretation Summary The estimated ejection fraction is 35 %. Stage 1 diastolic dysfunction. Mild eccentric left ventricular hypertrophy. Mildly dilated left ventricle. Severe inferior and apical hypokinesis. The study was technically difficult. Contrast injection was performed. ECHOCARDIOGRAM 11/11/2022: Interpretation Summary Moderately dilated left ventricle. The left ventricular ejection fraction is 35 %. There is moderate global hypokinesis of the left ventricle. Severe posterior and inferior hypokinesis. Aortic sclerosis, no stenosis. STRESS TEST 10/10/22: Perfusion SPECT a (more content not included)... Normal [facility] Pacemaker Checkon 07-15-2024 Pacemaker Check [facility] [place] [address] Pacemaker Check Date of Service: 07/15/24 1615 MR#: [id number] Acct: [id number] Name: NAYELY SOTO Rep #: [id number] : 1955 From: Rizwana Kellogg Age/Sex: 69/M Location[place] [facility] Status: Signed Billing Codes ICD Device Billin ICD Dev Prog Eval, Single Assessment and Plan Assessment and Plan (1) Presence of implantable cardioverter-defibril lator (ICD): Status: Acute Comment: SICD implant at [facility] DR. Kothari on 06/02/23 (2) Cardiomyopathy: Status: Chronic 07/15/24 1616 Date Rizwana Kellogg Cosigner Signature: Date (if applicable) CC: Normal [facility] [id number] 06-13-2024 [facility] Misc. Normal [facility] Comment on above: Order Comment: [id number] 0VITAMIN D Result Comment: TEST RESULTS LIMITS Vitamin D, 25-Hydroxy 21.4 Low ng/mL 30.0-100.0 Vitamin D deficiency has been defined by the [place] [employer] and an Endocrine Society practice guideline as a level of serum 25-OH vitamin D less than 20 ng/mL (1,2). The Endocrine Society went on to further define vitamin D insufficiency as a level between 21 and 29 ng/mL (2). 1. IOM ([place] of [employer]). 2010. Dietary reference intakes for calcium and D. [place]: The National Academies Press. 2. Bradly MF, Wanda LANG, [place] CHILD, et al. Evaluation, treatment, and prevention of vitamin D deficiency: an Endocrine Society clinical practice guideline. JCEM. 2010; 96(7):1911-30. TESTING PERFORMED AT [facility]. ORIGINAL REPORT ON FILE IN LAB CONTAINS ADDITIONAL TEST SITE INFORMATION. Performed By: #### L 501.9520, L100.0100, L506.0400, L509.1000, L502.0500, L3410.9998, L500.4050, L500.4100, L501.2300, L501.0900 ####[facility] [id number] [place], [address] Absolute lymphocyte countOrd ered By: Destini Sanders on 05-24-2024 Lymphocytes Auto (Unsp spec) [#/Vol] 2.39 10*3/uL 0.83-4.51 [facility] Absolute neutrophil countOrd ered By: Destini Sanders on 05-24-2024 Neutrophils (Bld) [#/Vol] 2.9 10*3/uL 2.0-7.7 [facility] Albumin to globulin ratioOrd ered By: Destini Sanders on 05-24-2024 Albumin/Globulin [Mass ratio] 1.0 {ratio} 0.9-2.4 [facility] Automated lymphocyte count a s percentage of total leukocytesOrdered By: Destini Sanders on 05-24-2024 Lymphocytes/100 WBC Auto (Unsp spec) 39.5 % - [facility] Basophil percentageOrdered B y: Destini Sanders on 05-24-2024 Basophils/100 WBC (Bld) 0.7 % 0-1 [facility] Bilirubin, totalOrdered By: Destini Sanders on 05-24-2024 Bilirubin [Mass/Vol] 0.90 mg/dL 0.20-1.00 [facility] Comment on above: For patients on eltr ombopag therapy, use of Dimension [place] TBIL is not recommended. Blood urea nitrogen (BUN)/cr eatinine ratioOrdered By: Destini Sanders on 05-24-2024 Urea nitrogen/Creatinine [Mass ratio] 15.1 mg/mg 10-20 [facility] CBC W/Diff, Automatedon 04-29 Absolute Lymph 2.39 X10 3/uL Normal 0.83-4.51 [facility] Comment on above: Performed By: #### L 501.9520, L100.0100, L506.0400, L509.1000, L502.0500, L3410.9998, L500.4050, L500.4100, L501.2300, L501.0900 #### [facility] Laboratory [facility] [address] [place], [place], [address] Absolute Neut 2.9 X10 3/uL Normal 2.0-7.7 [facility] Comment on above: Performed By: #### L 501.9520, L100.0100, L506.0400, L509.1000, L502.0500, L3410.9998, L500.4050, L500.4100, L501.2300, L501.0900 #### [facility] Laboratory [address] [place], [address] Basophils/100 WBC (Bld) 0.7 % Normal 0-1 [facility] Comment on above: Performed By: #### L 501.9520, L100.0100, L506.0400, L509.1000, L502.0500, L3410.9998, L500.4050, L500.4100, L501.2300, L501.0900 #### [facility] [address] [place], [address] Eosinophils/100 WBC (Bld) 4.5 % Normal 0-5 [facility] Comment on above: Performed By: #### L 501.9520, L100.0100, L506.0400, L509.1000, L502.0500, L3410.9998, L500.4050, L500.4100, L501.2300, L501.0900 #### [facility] [address] [place], [address] Erythrocyte distribution width (RBC) [Ratio] 14.1 % Normal 11.6-14.6 [facility] Comment on above: Performed By: #### L 501.9520, L100.0100, L506.0400, L509.1000, L502.0500, L3410.9998, L500.4050, L500.4100, L501.2300, L501.0900 #### [facility] [address] [facility] [place], [address] Hematocrit (Bld) [Volume fraction] 43.1 % Normal 40-54 [facility] Comment on above: Performed By: #### L 501.9520, L100.0100, L506.0400, L509.1000, L502.0500, L3410.9998, L500.4050, L500.4100, L501.2300, L501.0900 #### [facility] [address] [place], [address] Hemoglobin (Bld) [Mass/Vol] 14.1 g/dL Normal 13.0-16.5 [facility] Comment on above: Performed By: #### L 501.9520, L100.0100, L506.0400, L509.1000, L502.0500, L3410.9998, L500.4050, L500.4100, L501.2300, L501.0900 #### [facility] [address] [facility] [place], [address] IG% 0.200 Normal 0.0-0.9 [facility] Comment on above: Result Comment: IG% - Immature Granulocytes (promyelocytes, myelocytes and metamyelocytes) > 1% indicates that a LEFT SHIFT is Present. Performed By: #### L 501.9520, L100.0100, L506.0400, L509.1000, L502.0500, L3410.9998, L500.4050, L500.4100, L501.2300, L501.0900 #### [facility] [address] [place], [address] Lymphocytes/100 WBC (Bld) 39.5 % Normal 19-41 [facility] Comment on above: Performed By: #### L 501.9520, L100.0100, L506.0400, L509.1000, L502.0500, L3410.9998, L500.4050, L500.4100, L501.2300, L501.0900 #### [facility] [address] [place], [address] MCH (RBC) [Entitic mass] 31.1 pg Normal 27.0-32.0 [facility] Comment on above: Performed By: #### L 501.9520, L100.0100, L506.0400, L509.1000, L502.0500, L3410.9998, L500.4050, L500.4100, L501.2300, L501.0900 #### [facility] [address] [place], [address] MCHC (RBC) [Mass/Vol] 32.7 g/dL Normal 32-36 [facility] Comment on above: Performed By: #### L 501.9520, L100.0100, L506.0400, L509.1000, L502.0500, L3410.9998, L500.4050, L500.4100, L501.2300, L501.0900 #### [facility] [address] [facility] [place], [address] MCV (RBC) [Entitic vol] 95.1 fL High 80-94 [facility] Comment on above: Performed By: #### L 501.9520, L100.0100, L506.0400, L509.1000, L502.0500, L3410.9998, L500.4050, L500.4100, L501.2300, L501.0900 #### [facility] [address] [facility] [place], [address] Monocytes/100 WBC (Bld) 6.8 % Normal 0-10 [facility] Comment on above: Performed By: #### L 501.9520, L100.0100, L506.0400, L509.1000, L502.0500, L3410.9998, L500.4050, L500.4100, L501.2300, L501.0900 #### [facility] [address] [place], [address] Neutrophils/100 WBC (Bld) 48.3 % Normal 47-70 [facility] Comment on above: Performed By: #### L 501.9520, L100.0100, L506.0400, L509.1000, L502.0500, L3410.9998, L500.4050, L500.4100, L501.2300, L501.0900 #### [facility] [address] [place], [address] Nucleated RBC (Bld) [#/Vol] 0 10*3/uL Normal 0-5 [facility] [facility] Comment on above: Performed By: #### L 501.9520, L100.0100, L506.0400, L509.1000, L502.0500, L3410.9998, L500.4050, L500.4100, L501.2300, L501.0900 #### [facility] [address] [place], [address] Platelet mean volume (Bld) [Entitic vol] 8.9 fL Normal 6.2-12.0 [facility] Comment on above: Performed By: #### L 501.9520, L100.0100, L506.0400, L509.1000, L502.0500, L3410.9998, L500.4050, L500.4100, L501.2300, L501.0900 #### [facility] [address] [place], [address] Platelets (Bld) [#/Vol] 171 10*3/uL Normal 150-450 [facility] Comment on above: Performed By: #### L 501.9520, L100.0100, L506.0400, L509.1000, L502.0500, L3410.9998, L500.4050, L500.4100, L501.2300, L501.0900 #### [facility] [address] [place], [address] RBC (Bld) [#/Vol] 4.53 10*6/uL Low 4.6-6.2 [facility] Comment on above: Performed By: #### L 501.9520, L100.0100, L506.0400, L509.1000, L502.0500, L3410.9998, L500.4050, L500.4100, L501.2300, L501.0900 #### [facility] [address] [place], [address] RDW SD 49.1 fl High 35.1-43.9 [facility] Comment on above: Performed By: #### L 501.9520, L100.0100, L506.0400, L509.1000, L502.0500, L3410.9998, L500.4050, L500.4100, L501.2300, L501.0900 #### [facility] [address] [facility] [place], [place], [phone] WBC (Bld) [#/Vol] 6.1 10*3/uL Normal 4.4-11.0 [facility] Comment on above: Performed By: #### L 501.9520, L100.0100, L506.0400, L509.1000, L502.0500, L3410.9998, L500.4050, L500.4100, L501.2300, L501.0900 #### [facility] [address] [facility] [place], [place], [phone] Carbon dioxide measurementOr dered By: Destini Sanders on 05-24-2024 CO2 [Moles/Vol] 26.0 mmol/L 21.0-32.0 [facility] Chloride measurementOrdered By: Destini Sanders on 05-24-2024 Chloride [Moles/Vol] 106 mmol/L 98-107 [facility] Comprehensive Metabolic Prof ilon 05-24-2024 Albumin [Mass/Vol] 3.9 g/dL Normal 3.2-5.0 [facility] Comment on above: Performed By: #### L 501.9520, L100.0100, L506.0400, L509.1000, L502.0500, L3410.9998, L500.4050, L500.4100, L501.2300, L501.0900 ####[facility] [address] [place], [place], [phone] Albumin/Globulin [Mass ratio] 1.0 {ratio} Normal 0.9-2.4 [facility] Comment on above: Performed By: #### L 501.9520, L100.0100, L506.0400, L509.1000, L502.0500, L3410.9998, L500.4050, L500.4100, L501.2300, L501.0900 ####[facility] [address] [place], [place], [phone] ALK P 105 U/L Normal 45-117 [facility] Comment on above: Performed By: #### L 501.9520, L100.0100, L506.0400, L509.1000, L502.0500, L3410.9998, L500.4050, L500.4100, L501.2300, L501.0900 ####[facility] [address] [place], [place], [phone] ALT [Catalytic activity/Vol] 25 U/L Normal 16-61 [facility] Comment on above: Performed By: #### L 501.9520, L100.0100, L506.0400, L509.1000, L502.0500, L3410.9998, L500.4050, L500.4100, L501.2300, L501.0900 ####[facility] [address] [place], [place], [phone] AST [Catalytic activity/Vol] 16 U/L Normal 15-37 [facility] Comment on above: Performed By: #### L 501.9520, L100.0100, L506.0400, L509.1000, L502.0500, L3410.9998, L500.4050, L500.4100, L501.2300, L501.0900 ####[facility] [address] [place], [address] Bilirubin [Mass/Vol] 0.90 mg/dL Normal 0.20-1.00 [facility] Comment on above: Result Comment: For patients on eltrombopag therapy, use of Dimension [place] TBIL is not recommended. Performed By: #### L 501.9520, L100.0100, L506.0400, L509.1000, L502.0500, L3410.9998, L500.4050, L500.4100, L501.2300, L501.0900 ####[facility] [address] [place], [address] BUN/CRE 15.1 RATIO Normal 10-20 [facility] Comment on above: Performed By: #### L 501.9520, L100.0100, L506.0400, L509.1000, L502.0500, L3410.9998, L500.4050, L500.4100, L501.2300, L501.0900 ####[facility] [address] [place], [address] CA,Total 9.4 mg/dL Normal 8.5-10.1 [facility] Comment on above: Performed By: #### L 501.9520, L100.0100, L506.0400, L509.1000, L502.0500, L3410.9998, L500.4050, L500.4100, L501.2300, L501.0900 ####[facility] [address] [place], [address] Chloride [Moles/Vol] 106 mmol/L Normal 98-107 [facility] Comment on above: Performed By: #### L 501.9520, L100.0100, L506.0400, L509.1000, L502.0500, L3410.9998, L500.4050, L500.4100, L501.2300, L501.0900 ####[facility] [address] [place], [place], [phone](839) CO2 [Moles/Vol] 26.0 mmol/L Normal 21.0-32.0 [facility] Comment on above: Performed By: #### L 501.9520, L100.0100, L506.0400, L509.1000, L502.0500, L3410.9998, L500.4050, L500.4100, L501.2300, L501.0900 ####[facility] [address] [place], [place], [phone]) Creatinine [Mass/Vol] 1.66 mg/dL High 0.70-1.30 [facility] Comment on above: Result Comment: The validity of the calculated GFR GFRAA in patients over 70 years has not been determined. Clinical correlation is essential. Performed By: #### L 501.9520, L100.0100, L506.0400, L509.1000, L502.0500, L3410.9998, L500.4050, L500.4100, L501.2300, L501.0900 ####[facility] [address] [place], [place], [phone] EST GFR - AA 53 mL/min Low >60 [facility] Comment on above: Result Comment: Afri can Prydeinig GFR Calc Performed By: #### L 501.9520, L100.0100, L506.0400, L509.1000, L502.0500, L3410.9998, L500.4050, L500.4100, L501.2300, L501.0900 ####[facility] [address] [place], [place], [phone](323) GAP 4 Low 5-15 [facility] Comment on above: Performed By: #### L 501.9520, L100.0100, L506.0400, L509.1000, L502.0500, L3410.9998, L500.4050, L500.4100, L501.2300, L501.0900 ####[facility] [address] [place], [place], [phone](362) GFR/1.73 sq M.predicted among non-blacks MDRD (S/P/Bld) [Vol rate/Area] 44 mL/min/{1.73_m2} Low >60 [facility] Comment on above: Result Comment: Non- GFR Calc Performed By: #### L 501.9520, L100.0100, L506.0400, L509.1000, L502.0500, L3410.9998, L500.4050, L500.4100, L501.2300, L501.0900 ####[facility] [address] [place], [place], [phone](949) Globulin (S) [Mass/Vol] 4.1 g/dL Normal 2.2-4.2 [facility] Comment on above: Performed By: #### L 501.9520, L100.0100, L506.0400, L509.1000, L502.0500, L3410.9998, L500.4050, L500.4100, L501.2300, L501.0900 ####[facility] [address] [place], [place], [phone]- Glucose [Mass/Vol] 145 mg/dL High 74-106 [facility] Comment on above: Result Comment: Fast ing Glucose result greater than or equal to 126 mg/dL suggests DIABETES MELLITUS per A.D.A. criteria. Performed By: #### L 501.9520, L100.0100, L506.0400, L509.1000, L502.0500, L3410.9998, L500.4050, L500.4100, L501.2300, L501.0900 ####[facility] [address] [place], [address] Potassium [Moles/Vol] 4.6 mmol/L Normal 3.5-5.1 [facility] Comment on above: Performed By: #### L 501.9520, L100.0100, L506.0400, L509.1000, L502.0500, L3410.9998, L500.4050, L500.4100, L501.2300, L501.0900 ####[facility] [address] [place], [place], [phone] Sodium [Moles/Vol] 137 mmol/L Normal 136-145 [facility] Comment on above: Performed By: #### L 501.9520, L100.0100, L506.0400, L509.1000, L502.0500, L3410.9998, L500.4050, L500.4100, L501.2300, L501.0900 ####[facility] [address] [place], [place], [phone] T PROT 8.0 g/dL Normal 6.4-8.2 [facility] Comment on above: Performed By: #### L 501.9520, L100.0100, L506.0400, L509.1000, L502.0500, L3410.9998, L500.4050, L500.4100, L501.2300, L501.0900 ####[facility] [address] [place], [place], [phone] Urea nitrogen [Mass/Vol] 25 mg/dL High 7-18 [facility] Comment on above: Performed By: #### L 501.9520, L100.0100, L506.0400, L509.1000, L502.0500, L3410.9998, L500.4050, L500.4100, L501.2300, L501.0900 ####[facility] [address] [place], [place], [phone] Direct serum free thyroxine (FT4) measurementOrdered By: Destini Sanders on 05-24-2024 Free T4 [Mass/Vol] 0.95 ng/dL 0.76-1.46 [facility] Eosinophil percentageOrdered By: Destini Sanders on 05-24-2024 Eosinophils/100 WBC (Bld) 4.5 % 0-5 [facility] Erythrocyte distribution wid th ratioOrdered By: Destini Sanders on 05-24-2024 Erythrocyte distribution width (RBC) [Ratio] 14.1 % 11.6-14.6 [facility] Erythrocyte distribution wid th standard deviationOrdered By: Destini Sanders on 05-24-2024 Erythrocyte distribution width (RBC) [Ratio] 49.1 fl High 35.1-43.9 [facility] Glomerular filtration rate ( GFR) estimationOrdered By: Destini Sanders on 05-24-2024 GFR/1.73 sq M.predicted among non-blacks MDRD (S/P/Bld) [Vol rate/Area] 44 mL/min/{1.73_m2} Low >60 [facility] Comment on above: Non- GFR Calc Glucose measurementOrdered B y: Destini Sanders on 05-24-2024 Glucose [Mass/Vol] 145 mg/dL High 74-106 [facility] Comment on above: Fasting Glucose resu lt greater than or equal to 126 mg/dL suggests DIABETES MELLITUS per A.D.A. criteria. Hematocrit Auto (Bld) [Volum e fraction]Ordered By: Destini Sanders on 05-24-2024 Hematocrit (Bld) [Volume fraction] 43.1 % 40-54 [facility] Hemoglobin measurementOrdere d By: Destini Sanders on 05-24-2024 Hemoglobin (Bld) [Mass/Vol] 14.1 g/dL 13.0-16.5 [facility] High density lipoprotein (HD L) measurementOrdered By: Destini Sanders on 05-24-2024 Cholesterol in HDL [Mass/Vol] 38 mg/dL Low >40 [facility] Comment on above: The drugs N-Acetylcy steine and Metamizole may falsely depress this assay. Reference Range HDL <40 mg/dL Low HDL Cholesterol HDL >or= 60 mg/dL High HDL Cholesterol Immature granulocytes/100 WB C Auto (Bld)Ordered By: Destini Sanders on 05-24-2024 Immature granulocytes/100 WBC (Bld) 0.200 % 0.0-0.9 [facility] Comment on above: IG% - Immature Granu locytes (promyelocytes, myelocytes and metamyelocytes) > 1% indicates that a LEFT SHIFT is Present. Laboratory - Chemistry and C hemistry - challengeOrdered By: Destini Sanders on 05-24-2024 AST [Catalytic activity/Vol] 16 U/L 15-37 [facility] Lipid Profileon 05-24-2024 Cholesterol [Mass/Vol] 148 mg/dL Normal 200 [facility] Comment on above: Result Comment: <200 mg/dL Desirable 200-240 mg/dL Borderline >240 mg/dL High Risk Performed By: #### L 501.9520, L100.0100, L506.0400, L509.1000, L502.0500, L3410.9998, L500.4050, L500.4100, L501.2300, L501.0900 ####[facility] [address] [facility] [place], [place], [phone](939) Cholesterol in HDL [Mass/Vol] 38 mg/dL Low [facility] Comment on above: Result Comment: The drugs N-Acetylcysteine and Metamizole may falsely depress this assay. Reference Range HDL <40 mg/dL Low HDL Cholesterol HDL >or= 60 mg/dL High HDL Cholesterol Performed By: #### L 501.9520, L100.0100, L506.0400, L509.1000, L502.0500, L3410.9998, L500.4050, L500.4100, L501.2300, L501.0900 ####[facility] [address] [facility] [place], [address] Cholesterol in LDL [Mass/Vol] 77 mg/dL Normal 0-130 [facility] Comment on above: Performed By: #### L 501.9520, L100.0100, L506.0400, L509.1000, L502.0500, L3410.9998, L500.4050, L500.4100, L501.2300, L501.0900 ####[facility] [address] [place], [place], [phone] Cholesterol in VLDL [Mass/Vol] 33 mg/dL Normal 5-40 [facility] Comment on above: Performed By: #### L 501.9520, L100.0100, L506.0400, L509.1000, L502.0500, L3410.9998, L500.4050, L500.4100, L501.2300, L501.0900 ####[facility] [address] [place], [address] Triglyceride [Mass/Vol] 167 mg/dL Normal [facility] Comment on above: Result Comment: The drugs N-Acetylcysteine and Metamizole may falsely depress this assay. Serum Triglycerides Reference Interval Normal <150 mg/dL Borderline high 150 - 199 mg/dL High 200 - 499 mg/dL Very High > or = 500 mg/dL Performed By: #### L 501.9520, L100.0100, L506.0400, L509.1000, L502.0500, L3410.9998, L500.4050, L500.4100, L501.2300, L501.0900 ####[facility] [address] [facility] [place], [address] Low density lipoprotein (LDL ) cholesterol measurementOrdered By: Destini Sanders on 05-24-2024 Cholesterol in LDL [Mass/Vol] 77 mg/dL 0-130 [facility] MCV (mean corpuscular volume ) determinationOrdered By: Destini Sanders on 05-24-2024 MCV (RBC) [Entitic vol] 95.1 fL High 80-94 [facility] Mean corpuscular hemoglobin (MCH) determinationOrdered By: Destini Sanders on 05-24-2024 MCH (RBC) [Entitic mass] 31.1 pg 27.0-32.0 [facility] Mean corpuscular hemoglobin concentration (MCHC) determinationOrdered By: Destini Sanders on 05-24-2024 MCHC (RBC) [Mass/Vol] 32.7 g/dL 32-36 [facility] Mean platelet volume determi nationOrdered By: Destini Sanders on 05-24-2024 Platelet mean volume (Bld) [Entitic vol] 8.9 fL 6.2-12.0 [facility] Microalbumin,Random Urineon 05-24-2024 MICROALBUMIN,UR 9.9 mg/L Normal NO RANGE EST. [facility] Comment on above: Order Comment: DR.FR RAMOS ORDERD TSH,FT4,CMP,CBCD,MICROALBUMIN URINDR.DEVIN ORDERD PTH,CBC,VITD,PROTINE,CREATINE SPOTURIN,RENALDRF TOMMY ORDERD LIPID Performed By: #### L 501.9520, L100.0100, L506.0400, L509.1000, L502.0500, L3410.9998, L500.4050, L500.4100, L501.2300, L501.0900 ####[facility] [address] [place], [place], [phone] Monocyte percentageOrdered B y: Destini Sanders on 05-24-2024 Monocytes/100 WBC (Bld) 6.8 % 0-10 [facility] Neutrophil percentageOrdered By: Destini Sanders on 05-24-2024 Neutrophils/100 WBC (Bld) 48.3 % 47-70 [facility] Nucleated red blood cell per centageOrdered By: Destini Sanders on 05-24-2024 Nucleated RBC/100 WBC (Bld) [Ratio] 0 % 0-5 [facility] PTHINon 05-24-2024 PTH 102.0 pg/mL High 18.4-80.1 [facility] Comment on above: Performed By: #### L 501.9520, L100.0100, L506.0400, L509.1000, L502.0500, L3410.9998, L500.4050, L500.4100, L501.2300, L501.0900 #### [facility] [address] [place], [address] Phosphoruson 05-24-2024 Phosphate [Mass/Vol] 3.1 mg/dL Normal 2.5-4.9 [facility] Comment on above: Order Comment: ISABELLA LOVE,AISLINN DIEZ ORDERED PTH,CBC,VITD,URINE PROTIENCREAT RATIO,RENALFRANKLINLAUREN ORDERED TSH,FT4,CMP,CBCD,AICRO ALBUM Performed By: #### L 501.9520, L100.0100, L506.0400, L509.1000, L502.0500, L3410.9998, L500.4050, L500.4100, L501.2300, L501.0900 ####[facility] [address] [place], [address] Platelet countOrdered By: Destiney Sanders on 05-24-2024 Platelets (Bld) [#/Vol] 171 10*3/uL 150-450 [facility] Potassium measurementOrdered By: Destini Sanders on 05-24-2024 Potassium [Moles/Vol] 4.6 mmol/L 3.5-5.1 [facility] Protein+Creatinine Ratio,Uri neon 05-24-2024 PROT:CRE RATIO 132 mg/g CRE Normal 0-200 [facility] Comment on above: Order Comment: DR.FR RAMOS ORDERD TSH,FT4,CMP,CBCD,MICROALBUMIN URINDR.DEVIN ORDERD PTH,CBC,VITD,PROTINE,CREATINE SPOTURIN,RENALDRF TOMMY ORDERD LIPID Performed By: #### L 501.9520, L100.0100, L506.0400, L509.1000, L502.0500, L3410.9998, L500.4050, L500.4100, L501.2300, L501.0900 ####[facility] [address] [place], [address] Protein (U) [Mass/Vol] 13.9 mg/dL High <11.9 [facility] Comment on above: Order Comment: DR.FR RAMOS ORDERD TSH,FT4,CMP,CBCD,MICROALBUMIN URINDR.DEVIN ORDERD PTH,CBC,VITD,PROTINE,CREATINE SPOTURIN,RENALDRF SANDERS ORDERD LIPID Performed By: #### L 501.9520, L100.0100, L506.0400, L509.1000, L502.0500, L3410.9998, L500.4050, L500.4100, L501.2300, L501.0900 ####[facility] [address] [place], [place], [phone](129) UR CREAT 105.00 mg/dL Normal NO RANGE EST. [facility] Comment on above: Order Comment: DR.FR RAMOS ORDERD TSH,FT4,CMP,CBCD,MICROALBUMIN URINDR.DEVIN ORDERD PTH,CBC,VITD,PROTINE,CREATINE SPOTURIN,RENALDRF SANDERS ORDERD LIPID Performed By: #### L 501.9520, L100.0100, L506.0400, L509.1000, L502.0500, L3410.9998, L500.4050, L500.4100, L501.2300, L501.0900 ####[facility] [address] [place], [place], [phone] RBC Auto (Bld) [#/Vol]Ordere d By: Destini Sanders on 05-24-2024 RBC (Bld) [#/Vol] 4.53 10*6/uL Low 4.6-6.2 [facility] Random urine protein measure mentOrdered By: Destini Sanders on 05-24-2024 Protein (U) [Mass/Vol] 13.9 mg/dL High 0.0-11.8 [facility] Serum anion gap measurementO rdered By: Destini Sanders on 05-24-2024 Anion gap [Moles/Vol] 4 mmol/L Low 5-15 [facility] Serum globulin measurementOr dered By: Destini Sanders on 05-24-2024 Globulin (S) [Mass/Vol] 4.1 g/dL 2.2-4.2 [facility] Serum or plasma alanine allen otransferase (ALT) measurementOrdered By: Destini Sanders on 05-24-2024 ALT [Catalytic activity/Vol] 25 U/L 16-61 [facility] Serum or plasma albumin chris urement (mass/volume)Ordered By: Destini Sanders on 05-24-2024 Albumin [Mass/Vol] 3.9 g/dL 3.2-5.0 [facility] Serum or plasma alkaline bradley sphatase measurementOrdered By: Destini Sanders on 05-24-2024 ALP [Catalytic activity/Vol] 105 U/L 45-117 [facility] Serum or plasma calcium chris urement (mass/volume)Ordered By: Destini Sanders on 05-24-2024 Calcium [Mass/Vol] 9.4 mg/dL 8.5-10.1 [facility] Serum or plasma cholesterol measurement (mass/volume)Ordered By: Destini Sanders on 05-24-2024 Cholesterol [Mass/Vol] 148 mg/dL <200 [facility] Comment on above: <200 mg/dL Desirable 200-240 mg/dL Borderline >240 mg/dL High Risk Serum or plasma creatinine m easurement (mass/volume)Ordered By: Destini Sanders on 05-24-2024 Creatinine [Mass/Vol] 1.66 mg/dL High 0.70-1.30 [facility] Comment on above: The validity of the calculated GFR & GFRAA in patients over 70 years has not been determined. Clinical correlation is essential. Serum or plasma thyroid stim ulating hormone (TSH) measurement (units/volume)Ordered By: Destini Sanders on 05-24-2024 TSH Qn 2.320 uIU/mL 0.358-3.740 [facility] Serum or plasma urea nitroge n measurement (mass/volume)Ordered By: Destini Sanders on 05-24-2024 Urea nitrogen [Mass/Vol] 25 mg/dL High 7-18 [facility] Sodium levelOrdered By: Jc Sanders on 05-24-2024 Sodium [Moles/Vol] 137 mmol/L 136-145 [facility] T4 Free Directon 05-24-2024 T4 FREE DIRECT 0.95 ng/dL Normal 0.76-1.46 [facility] Comment on above: Performed By: #### L 501.9520, L100.0100, L506.0400, L509.1000, L502.0500, L3410.9998, L500.4050, L500.4100, L501.2300, L501.0900 ####[facility] [address] [place], [place], [phone] Thyroid Stim Hormone (TSH)on 05-24-2024 TSH 2.320 uIU/mL Normal 0.358-3.740 [facility] Comment on above: Performed By: #### L 501.9520, L100.0100, L506.0400, L509.1000, L502.0500, L3410.9998, L500.4050, L500.4100, L501.2300, L501.0900 ####[facility] [address] [place], [address] Total proteinOrdered By: Dhruv Sanders on 05-24-2024 Protein [Mass/Vol] 8.0 g/dL 6.4-8.2 [facility] Triglycerides measurementOrd ered By: Destini Sanders on 05-24-2024 Triglyceride [Mass/Vol] 167 mg/dL <199 [facility] Comment on above: The drugs N-Acetylcy steine and Metamizole may falsely depress this assay.Serum Triglycerides Reference Interval Normal <150 mg/dL Borderline high 150 - 199 mg/dL High 200 - 499 mg/dL Very High > or = 500 mg/dL Urine creatinine measurement (mass/volume)Ordered By: Destini Sanders on 05-24-2024 Creatinine (U) [Mass/Vol] 105.00 mg/dL NO RANGE EST. [facility] Urine protein/creatinine mas s ratioOrdered By: Destini Sanders on 05-24-2024 Protein/Creatinine (U) [Mass ratio] 132 mg/g CRE 0-200 [facility] Very low density lipoprotein (VLDL) cholesterol measurementOrdered By: Destini Sanders on 05-24-2024 Very low density lipoprotein (VLDL) cholesterol measurement 33 mg/dL 5-40 [facility] White blood cell (WBC) count Ordered By: Destini Sanders on 05-24-2024 WBC (Bld) [#/Vol] 6.1 10*3/uL 4.4-11.0 [facility] Cardiology Visit Reporton Cardiology Visit Report [facility] [address] [place] [address] OFFICE VISIT Date of Service: 04/08/24 MR#: [id number] Acct: [id number] Name: NAYELY SOTO Rep #: [id number] : 1955 Provider: LUISITO Horn Age/Sex: 68/M Location[place] [facility] Status: Signed HPI HPI History of Present Illness Details: This is a 68-year-old gentleman that has a history of coronary artery disease, ischemic cardiomyopathy, hypertension, hyperlipidemia and peripheral artery disease. Echocardiogram done in December 2022 demonstrated an estimated ejection fraction of 35%. Stress test in 2022 demonstrated reduced ejection fraction with previous extensive inferior infarct with minimal imani-infarct ischemia. Patient did have a prophylactic ICD placed at [facility] on 06/02/2023. Pt is concerned about claudication. He notes that his left leg is worse than his right. He does not have any chest pain or worsening shortness of breath. He does not have any palpitations that he is aware of. Intake Vital Signs 10/01/23 11:08 04/08/24 13:34 Height 5 ft 8 in 5 ft 8 in Weight: 166 lb BMI 25.2 BP 125/78 H Blood Pressure Location Lt brachial Position Sitting Respiration 18 Pulse 64 Pulse Source Monitor Pulse Oximetry (%) 93 Intake Visit Reasons: 6 M FU Lending Consultant Required: No Is patient in pain?: No Allergies Tetanus Vaccines and Toxoid Allergy (Intermediate, Verified 04/08/24 13:34) Swelling Food Allergies: Uncoded Allergy (Verified 04/08/24 13:34) Swelling Penicillins Allergy (Verified 04/08/24 13:34) Swelling Medications ???Medication ???Instructions ???Recorded ???Confirmed ???Type lisinopril 20 mg tablet 20 mg PO DAILY 08/07/22 04/08/24 History aspirin 81 mg tablet,delayed 81 mg PO DAILY #90 tabs 12/04/22 04/08/24 Rx release dapagliflozin propanediol 10 mg 10 mg PO DAILY GENERIC for Poncexiga 08/14/23 04/08/24 History tablet atorvastatin 20 mg tablet 10 mg PO QHS 10/01/23 04/08/24 History levothyroxine 50 mcg tablet 75 mcg PO DAILY 10/01/23 04/08/24 History carvedilol 12.5 mg tablet 12.5 mg PO BID #180 TABLETS 03/01/24 04/08/24 Rx Have you fallen in the past year?: No Nurse's Note: no medication list, does not know what medications he is taking [facility] Medical History Hypothyroidism Peripheral artery disease History of smoking Claudication of lower extremity Cardiomyopathy Dyslipidemia Coronary artery disease Abnormal stress test Fatigue Dizziness Hyperlipidemia Diabetes mellitus HTN (hypertension) Surgical History Presence of implantable cardioverter-defibril lator (ICD) Family History Brother Cancer prostate Other Heart disease Social History Smoking Status: Former smoker how long ago did patient quit smokinyr alcohol intake: current alcohol intake frequency: a few times a month substance use type: does not use caffeine: Yes Type: carbonated beverages ROS Const Const: Positive for fatigue; Negative for weakness, headache(s), daytime sleepiness or difficulty sleeping Eyes Eyes: Negative for change in vision ENT ENT: Negative for headache(s), dizziness or Nosebleed/epistaxis Cardio Chest Pain: No Palpitations: No Edema: None Muscle aches with walking: Bilateral Resp Respiratory: Negative for SOB with activity, SOB at rest, SOB orthopnea SOB lying down or Cough GI GI: Negative nausea, vomiting or heartburn Neuro Neuro: Negative for dizziness, lightheadedness, near syncope, headache(s) or weakness Endo Endo: Positive for fatigue Cardiology Exam Const Appearance: comfortable and no acute distress Nutritional Appearance: well nourished Neck Neck: no JVD Carotids: Negative bruit Chest Auscultation: Bilateral: Clear to Auscultation Cardio Rate: regular rate Rhythm: regular rhythm Heart sounds: S1 normal and S2 normal Neuro General: patient alert, patient awake and patient oriented x3 Extremities Pulses: Normal: Right Radial Pulse and Left Radial Pulse and Diminished: Right Posterior Tibial Pulse and Left Posterior Tibial Pulse Lower Extremity Edema: None: Bilateral Supplemental Info Supplemental Information Echocardiogram from 01/13/2023: Interpretation Summary The estimated ejection fraction is 35 %. Stage 1 diastolic dysfunction. Mild eccentric left ventricular hypertrophy. Mildly dilated left ventricle. Severe inferior and apical hypokinesis. The study was technically difficult. Contrast injection was performed. ECHOCARDIOGRAM 11/11/22: Int (more content not included)... Normal [facility] CBC-Complete Blood Cnt No Di ffon 11-18-2023 Erythrocyte distribution width (RBC) [Ratio] 14.1 % Normal 11.6-14.6 [facility] Comment on above: Performed By: #### L 500.3600, L509.1000, L100.0500, L501.0900, L506.1000 #### [facility] [address], [address] Hematocrit (Bld) [Volume fraction] 41.3 % Normal 40-54 [facility] Comment on above: Performed By: #### L 500.3600, L509.1000, L100.0500, L501.0900, L506.1000 #### [facility] [address] [place], [address] Hemoglobin (Bld) [Mass/Vol] 13.5 g/dL Normal 13.0-16.5 [facility] Comment on above: Performed By: #### L 500.3600, L509.1000, L100.0500, L501.0900, L506.1000 #### [facility] [address] [place], [address] MCH (RBC) [Entitic mass] 30.4 pg Normal 27.0-32.0 [facility] Comment on above: Performed By: #### L 500.3600, L509.1000, L100.0500, L501.0900, L506.1000 #### [facility] [address] [place], [address] MCHC (RBC) [Mass/Vol] 32.7 g/dL Normal 32-36 [facility] Comment on above: Performed By: #### L 500.3600, L509.1000, L100.0500, L501.0900, L506.1000 #### [facility] [address] [place], [address] MCV (RBC) [Entitic vol] 93.0 fL Normal 80-94 [facility] Comment on above: Performed By: #### L 500.3600, L509.1000, L100.0500, L501.0900, L506.1000 #### [facility] [address] [place], [address] Platelet mean volume (Bld) [Entitic vol] 9.2 fL Normal 6.2-12.0 [facility] Comment on above: Performed By: #### L 500.3600, L509.1000, L100.0500, L501.0900, L506.1000 #### [facility] [address] [place], [address] Platelets (Bld) [#/Vol] 149 10*3/uL Low 150-450 [facility] Comment on above: Performed By: #### L 500.3600, L509.1000, L100.0500, L501.0900, L506.1000 #### [facility] [address] [place], [address] RBC (Bld) [#/Vol] 4.44 10*6/uL Low 4.6-6.2 [facility] Comment on above: Performed By: #### L 500.3600, L509.1000, L100.0500, L501.0900, L506.1000 #### [facility] [address] [place], [address] RDW SD 47.7 fl High 35.1-43.9 [facility] Comment on above: Performed By: #### L 500.3600, L509.1000, L100.0500, L501.0900, L506.1000 #### [facility] [address] [place], [address] WBC (Bld) [#/Vol] 5.7 10*3/uL Normal 4.4-11.0 [facility] Comment on above: Performed By: #### L 500.3600, L509.1000, L100.0500, L501.0900, L506.1000 #### [facility] [address] [place], [address] PTHINon 11-18-2023 PTH 77.7 pg/mL Normal 18.4-80.1 [facility] Comment on above: Performed By: #### L 500.3600, L509.1000, L100.0500, L501.0900, L506.1000 #### [facility] [address] [place], [address] Protein+Creatinine Ratio,Uri neon 11-18-2023 PROT:CRE RATIO 162 mg/g CRE Normal 0-200 [facility] Comment on above: Performed By: #### L 500.3600, L509.1000, L100.0500, L501.0900, L506.1000 #### [facility] [address] [place], [address] Protein (U) [Mass/Vol] 17.5 mg/dL High <11.9 [facility] Comment on above: Performed By: #### L 500.3600, L509.1000, L100.0500, L501.0900, L506.1000 #### [facility] [address] [place], [address] UR CREAT 108.00 mg/dL Normal NO RANGE EST. [facility] Comment on above: Performed By: #### L 500.3600, L509.1000, L100.0500, L501.0900, L506.1000 #### [facility] [address] [place], [address] Renal Profileon 11-18-2023 Albumin [Mass/Vol] 3.8 g/dL Normal 3.2-5.0 [facility] Comment on above: Performed By: #### L 500.3600, L509.1000, L100.0500, L501.0900, L506.1000 #### [facility] [address] [place], [address] BUN/CRE 16.6 RATIO Normal 10-20 [facility] Comment on above: Performed By: #### L 500.3600, L509.1000, L100.0500, L501.0900, L506.1000 #### [facility] [address] [place], [address] CA,Total 9.4 mg/dL Normal 8.5-10.1 [facility] Comment on above: Performed By: #### L 500.3600, L509.1000, L100.0500, L501.0900, L506.1000 #### [facility] [address] [place], [address] Chloride [Moles/Vol] 106 mmol/L Normal 98-107 [facility] Comment on above: Performed By: #### L 500.3600, L509.1000, L100.0500, L501.0900, L506.1000 #### [facility] [address] [place], [address] CO2 [Moles/Vol] 25.0 mmol/L Normal 21.0-32.0 [facility] Comment on above: Performed By: #### L 500.3600, L509.1000, L100.0500, L501.0900, L506.1000 #### [facility] [address] [place], [address] Creatinine [Mass/Vol] 1.75 mg/dL High 0.70-1.30 [facility] Comment on above: Result Comment: The validity of the calculated GFR GFRAA in patients over 70 years has not been determined. Clinical correlation is essential. Performed By: #### L 500.3600, L509.1000, L100.0500, L501.0900, L506.1000 #### [facility] [address] [place], [address] EST GFR - AA 50 mL/min Low >60 [facility] Comment on above: Result Comment: Afri can Prydeinig GFR Calc Performed By: #### L 500.3600, L509.1000, L100.0500, L501.0900, L506.1000 #### [facility] [address] [place], [address] GFR/1.73 sq M.predicted among non-blacks MDRD (S/P/Bld) [Vol rate/Area] 41 mL/min/{1.73_m2} Low >60 [facility] Comment on above: Result Comment: Non- GFR Calc Performed By: #### L 500.3600, L509.1000, L100.0500, L501.0900, L506.1000 #### [facility] [address] [place], [address] Glucose [Mass/Vol] 124 mg/dL High 74-106 [facility] Comment on above: Result Comment: Fast ing Glucose result from 100 to 125 mg/dL suggests IMPAIRED HOMEOSTASIS per A.D.A. criteria. Performed By: #### L 500.3600, L509.1000, L100.0500, L501.0900, L506.1000 #### [facility] [address] [place], [address] Phosphate [Mass/Vol] 3.4 mg/dL Normal 2.5-4.9 [facility] Comment on above: Performed By: #### L 500.3600, L509.1000, L100.0500, L501.0900, L506.1000 #### [facility] [address] [place], [address] Potassium [Moles/Vol] 4.9 mmol/L Normal 3.5-5.1 [facility] Comment on above: Result Comment: Mode rate Hemolysis, Result may be falsely increased. Performed By: #### L 500.3600, L509.1000, L100.0500, L501.0900, L506.1000 #### [facility] [address] [place], [address] Sodium [Moles/Vol] 136 mmol/L Normal 136-145 [facility] Comment on above: Performed By: #### L 500.3600, L509.1000, L100.0500, L501.0900, L506.1000 #### [facility] [address] [place], [address] Urea nitrogen [Mass/Vol] 29 mg/dL High 7-18 [facility] Comment on above: Performed By: #### L 500.3600, L509.1000, L100.0500, L501.0900, L506.1000 #### [facility] [address] [place], [address] Vitamin D,25 Hydroxyon 11-17 Vitamin D 25-OH 34.7 ng/mL Normal [facility] Comment on above: Result Comment: Charissa min D 25(OH) Status Range Deficiency <20 ng/mL (50nmol/L) Insufficiency 20 - 30 ng/mL (50 - 75 nmol/L) Sufficiency 30 - 100 ng/mL (75 - 250 nmol/L) Toxicity >100 ng/mL (>250 nmol/L) Performed By: #### L 500.3600, L509.1000, L100.0500, L501.0900, L506.1000 #### [facility] [address] [place], [address] Basophil percentageOrdered B y: Destini Sanders on 06-11-2023 Hemoglobin (Bld) [Mass/Vol] 13.5 g/dL 13.0-16.5 [facility] WBC (Bld) [#/Vol] 6.3 10*3/uL 4.4-11.0 [facility] Basophil percentage 3.7 mg/dL 2.5-4.9 [facility] Bilirubin [Mass/Vol] 0.70 mg/dL 0.20-1.00 [facility] Comment on above: For patients on eltr ombopag therapy, use of Dimension [place] TBIL is not recommended. Chloride [Moles/Vol] 107 mmol/L 98-107 [facility] Cholesterol [Mass/Vol] 133 mg/dL <200 [facility] Comment on above: <200 mg/dL Desirable 200-240 mg/dL Borderline >240 mg/dL High Risk Glucose [Mass/Vol] 134 mg/dL 74-106 [facility] Comment on above: Fasting Glucose resu lt greater than or equal to 126 mg/dL suggests DIABETES MELLITUS per A.D.A. criteria. Potassium [Moles/Vol] 4.9 mmol/L 3.5-5.1 [facility] Protein [Mass/Vol] 7.8 g/dL 6.4-8.2 [facility] Sodium [Moles/Vol] 139 mmol/L 136-145 [facility] Triglyceride [Mass/Vol] 100 mg/dL <199 [facility] Comment on above: The drugs N-Acetylcy steine and Metamizole may falsely depress this assay.Serum Triglycerides Reference Interval Normal <150 mg/dL Borderline high 150 - 199 mg/dL High 200 - 499 mg/dL Very High > or = 500 mg/dL Determination of erythrocyte mean corpuscular volume (MCV)Ordered By: Destini Sanders on 06-11-2023 MCV (RBC) [Entitic vol] 91.9 fL 80-94 [facility] Direct bilirubinOrdered By: Destini Sanders on 06-11-2023 Bilirubin.direct [Mass/Vol] 0.20 mg/dL 0.00-0.30 [facility] Erythrocyte distribution wid th ratioOrdered By: Destini Sanders on 06-11-2023 Erythrocyte distribution width (RBC) [Ratio] 12.9 % 11.6-14.6 [facility] Erythrocyte distribution wid th standard deviationOrdered By: Destini Sanders on 06-11-2023 Erythrocyte distribution width (RBC) [Entitic vol] 43.4 fL 35.1-43.9 [facility] Hematocrit Auto (Bld) [Volum e fraction]Ordered By: Destini Sanders on 06-11-2023 Hematocrit (Bld) [Volume fraction] 42.1 % 40-54 [facility] - Chemistry and C hemistry - challengeOrdered By: Destini Sanders on 06-11-2023 ALP [Catalytic activity/Vol] 95 U/L 45-117 [facility] ALT [Catalytic activity/Vol] 20 U/L 16-61 [facility] Cholesterol in HDL [Mass/Vol] 35 mg/dL >40 [facility] Comment on above: The drugs N-Acetylcy steine and Metamizole may falsely depress this assay. Reference Range HDL <40 mg/dL Low HDL Cholesterol HDL >or= 60 mg/dL High HDL Cholesterol Cholesterol in LDL [Mass/Vol] 78 mg/dL 0-130 [facility] CO2 [Moles/Vol] 23.0 mmol/L 21.0-32.0 [facility] Globulin (S) [Mass/Vol] 3.9 g/dL 2.2-4.2 [facility] Urea nitrogen/Creatinine [Mass ratio] 21.5 mg/mg 10-20 [facility] - Hematology and Cell countsOrdered By: Destini Sanders on 06-11-2023 MCH (RBC) [Entitic mass] 29.5 pg 27.0-32.0 [facility] MCHC (RBC) [Mass/Vol] 32.1 g/dL 32-36 [facility] Platelet mean volume (Bld) [Entitic vol] 9.4 fL 6.2-12.0 [facility] Platelets (Bld) [#/Vol] 171 10*3/uL 150-450 [facility] No Panel InformationOrdered By: Destini Sanders on 06-11-2023 Parathyroid Hormone (Intact) 64.1 pg/mL 18.4-80.1 [facility] Vitamin D 25-Hydroxy 38.8 ng/mL [facility] Comment on above: Vitamin D 25(OH) Sta tus Range Deficiency <20 ng/mL (50nmol/L) Insufficiency 20 - 30 ng/mL (50 - 75 nmol/L) Sufficiency 30 - 100 ng/mL (75 - 250 nmol/L) Toxicity >100 ng/mL (>250 nmol/L) Estimated GFR (MDRD) Amer 51 mL/min >60 [facility] Comment on above: GFR Calc Estimated GFR (MDRD) Non-Af Amer 42 mL/min >60 [facility] Comment on above: Non- GFR Calc VLDL Cholesterol 20 mg/dL 5-40 [facility] RBC Auto (Bld) [#/Vol]Ordere d By: Destini Sanders on 06-11-2023 RBC (Bld) [#/Vol] 4.58 10*6/uL 4.6-6.2 [facility] Serum or plasma calcium chris urement (mass/volume)Ordered By: Destini Sanders on 06-11-2023 Calcium [Mass/Vol] 9.7 mg/dL 8.5-10.1 [facility] Serum or plasma creatinine m easurement (mass/volume)Ordered By: Destini Sanders on 06-11-2023 Creatinine [Mass/Vol] 1.72 mg/dL 0.70-1.30 [facility] Comment on above: The validity of the calculated GFR & GFRAA in patients over 70 years has not been determined. Clinical correlation is essential. Serum or plasma thyroid stim ulating hormone (TSH) measurement (units/volume)Ordered By: Destini Sanders on 06-11-2023 TSH Qn 3.50 uIU/mL 0.358-3.74 [facility] Serum or plasma thyroxine (T 4) measurement (mass/volume)Ordered By: Destini Sanders on 06-11-2023 T4 [Mass/Vol] 5.7 ug/dL 4.5-12.1 [facility] Serum or plasma urea nitroge n measurement (mass/volume)Ordered By: Destini Sanders on 06-11-2023 Urea nitrogen [Mass/Vol] 37 mg/dL 7-18 [facility] Thin prep Papanicolaou smear with manual screeningOrdered By: Destinilibra Sanders on 06-11-2023 Thin prep Papanicolaou smear with manual screening 3.9 g/dL 3.2-5.0 [facility] Thin prep Papanicolaou smear with manual screening 18 U/L 15-37 [facility] Thin prep Papanicolaou smear with manual screening 9 5-15 [facility] ANES POSTPROC EVALon 024 ANES POSTPROC EVAL HNO ID: [id number] Author: CRISTINO AG MD Service: Anesthesiology Author Type: Physician Type: Anesthesia Postprocedure Evaluation Filed: 06/03/2023 07:44 Note Text: POST ANESTHESIA EVALUATION NOTE : 1955 Procedure Summary Date: 06/02/23 Room / Location: [place] [address] / [facility] Anesthesia Start: 913 Anesthesia Stop: 1113 Procedure: INSERTION PERM IMPLANTABLE DEFIBRILLATOR SYSTEM, W/TRANSVENOUS LEAD(S) (Left) Diagnosis: Cardiomyopathy, ischemic (Cardiomyopathy, ischemic [I25.5]) Surgeons: David Kothari MD Responsible Provider: Cristino Ag MD Anesthesia Type: MAC ASA Status: 3 Anesthesia Type: MAC Last Vitals Vitals Value Taken Time BP 121/64 06/03/23 0740 Temp 36.2 ?C (97.2 ?F) 06/03/23 0740 Pulse 54 06/03/23 0740 Resp 18 06/03/23 0740 SpO2 96 % 06/03/23 0740 Post Anesthesia Patient Status Patient Evaluation: bedside. Intraoperative Events: no significant anesthesia events Anesthesia Observations No Documentation SIGNATURE: Cristino Ag MD PATIENT NAME: Nayely Soto DATE: June 03, 2023 TIME: 7:44 AM CSN: [id number] [facility] CNDSon 06-03-2023 [facility] HNO ID: [id number] Author: DONYA CORCORAN APRN.AIR CARRIER MAINTENANCE INSPECTOR Service: Electrophysiology Author Type: Nurse Practitioner Type: Discharge Summary Filed: 06/03/2023 14:16 Note Text: Attestation signed by David Kothari MD at 06/03/2023 2:27 PM Reviewed case. Agree with evaluation and plan of care as outlined by the CAR REPOSSESSOR, as we discussed. DISCHARGE SUMMARY PATIENT NAME: Nayely Soto Code Status: Not on file Highest Readmission Risk Score: 10 The 30 day readmissions risk score is derived from an internally validated risk model which evaluates patient level characteristics, utilization history, medication orders and lab results up until the day of discharge. Patients with a score of 40 or above are considered highest risk for readmission. Specific patient level drivers will be listed at the bottom of the summary. Admission Information Admission Information ADMIT DATE: 06/02/2023 DISCHARGE DATE: 06/03/2023 MY DOCTORS AND MEDICAL TEAM: My Main Hospital Doctor: David Kothari MD Primary Care Provider: No primary care provider on file. My Medical Team Members: Treatment Team: Attending Provider: David Kothari MD MY CONDITION AT DISCHARGE: Stable REASON I WAS IN THE HOSPITAL: Implantation of [employer] single-chamber ICD, procedure performed by Dr. Kothari 06/02/2023. SUMMARY OF WHAT HAPPENED WHILE I WAS IN THE HOSPITAL: The patient underwent implantation of [employer] single-chamber ICD, procedure performed by Dr. Kothari 06/02/2023. There were no intraprocedural complications. The patient recovered in the rapid observation unit where he was monitored overnight and discharged home. OTHER PROBLEMS/DIAGNOSIS: Principal Problem: S/P ICD (internal cardiac defibrillator) procedure - The patient underwent implantation of [employer] single-chamber ICD, procedure performed by Dr. Kothari 06/02/2023. There were no intraprocedural complications. The patient did well overnight, telemetry demonstrates sinus bradycardia, rates in the 50s. Device check shows normal function of ICD. Chest x-ray shows ICD lead and device in appropriate position, no evidence of pneumothorax. He will have a wound check in 1 week with Aquacel dressing removal, to be performed at the [place] [facility], subsequent device checks and follow-ups to be made with [place] [facility] as well. His daughter was present during discharge instructions, medications and follow-up, patient and his daughter verbalized understanding. He is okay to be discharged home, as discussed with Dr. Kothari. Active Problems: At risk for sudden cardiac Cardiomyopathy, ischemic Resolved Problems: * No resolved hospital problems. * OPERATIONS PERFORMED WHILE IN THE HOSPITAL: Implantation of [employer] single-chamber ICD, procedure performed by Dr. Kothari 06/02/2023. IMPORTANT TEST/PROCEDURES: Chest x-ray -shows ICD lead and device in appropriate position, no evidence of pneumothorax. Device check -shows normal function of ICD. Discharge Disposition Discharge Disposition: Home With Self Care Activity When You Leave the Hospital Lifting is restricted to:no more than 8 lbs for 6 weeks Left arm May bathe and shower No driving for: one week No exercise for: six weeks, no lifting over head Left arm Diet Instructions Resume your pre-hospital diet For Pain When You Leave the Hospital Apply a covered cold pack to the area every two hours for two days 20 minutes at a time Use acetaminophen (Tylenol) as recommended on the bottle Wound/Surgical Site Care Any bruising and bumps should disappear within 3-4 days Avoid lotions or powders Check your wound every day Left upper chest ICD site If the bruising expands or the bump enlarges please call your doctor Some bruising, soreness or a small bump under the skin at the inserion site is normal Call Your Doctor If There is an unusual odor from the wound area There is severe pain at the operative site You have lightheadedness, fainting, or confusion You have persistent or heavy bleeding You have redness, swelling, pus or drainage from the wound Your temperature is greater than 101F Follow Up Appointments Follow-Up Appointment The office will call to schedule wound check in one week with Aquacel dressing removal. When: In 1 week Patient/Parents to call for appointment?: David Zavala MD [phone] [place] [address] PCP Requested Referral Follow-Up Appointment Device check 07/15/2023 With: [facility] When: In 6 weeks Patient/Parents to call for appointment?: Scheduled FOLLOW-UP APPOINTMENTS ALREADY SCHEDULED WITH A [facility] PROVIDER: Future Appointments Date Time Provider Department Center (more content not included)... Normal [facility] NUTRITIONon 06-03-2023 NUTRITION HNO ID: [id number] Author: JACOB TAVERAS RD Service: Nutrition Therapy Author Type: Registered Dietitian Type: Nutrition Filed: 06/03/2023 15:19 Note Text: SCREEN NOTE SERVICE DATE: 06/03/2023 SERVICE TIME: 1230 Care Plan: Continue current diet Monitor for needs HPI: 67 yr old male admitted for defibrillator insertion. Monitor and Evaluation: Meet greater than 75% of estimated needs;Monitor bowel function;Monitor fluid/electrolyte balance;Monitor labs, I/Os, vital signs, weight Intake History: Current Nutrition Intake: Greater than 75% estimated energy needs Diet Orders (From admission, onward) Start Ordered 06/02/23 1200 DIET REGULAR START NOW 06/02/23 1154 Anthropometrics: Height: 172.7 cm (5' 8) Weight: 70.3 kg (155 lb) Last 10 Encounter Wt Readings: Date: Wt: 05/29/2023 70.8 kg (156 lb) 05/09/2023 70.3 kg (155 lb) 04/04/2023 70.3 kg (155 lb) Weight change percentage over time: no significant changes MNT Billing: $ Reassessment: 1-15 minutes SIGNATURE: Jacob Taveras RD PATIENT NAME: Nayely Soto DATE: June 03, 2023 TIME: 10:27 AM [facility] XR CHEST 2V FRONTAL/LATon XR CHEST 2V FRONTAL/LAT * * *Final Repor t* * * DATE OF EXAM: Jun 03 2023 7:23AM AKX [id number] - XR CHEST 2V FRONTAL/LAT / PROCEDURE REASON: Other * * * * Physician Interpretation * * * * EXAMINATION: CHEST RADIOGRAPH (2 VIEW FRONTAL and LATERAL) CLINICAL HISTORY: Other, s/p ICD placement, check lead position and r/o PTX. MQ: [id number] EXAM DATE/TIME: 06/03/2023 7:23 AM COMPARISON: No relevant prior studies available. RESULT: Lines, tubes, and devices: Left-sided AICD. Solitary intact ventricular lead. Lungs and pleura: There is no pneumothorax visualized. No pneumonia, congestion or pleural effusion. Cardiomediastinal silhouette: Normal cardiomediastinal silhouette. Bones and soft tissues: Slight rightward curvature thoracic spine with multilevel degenerative spondylosis. IMPRESSION: No pneumothorax. [employer] Salesperson: [employer] Transcribe Date/Time: Jun 03 2023 1:40P Dictated by : BERNADETTE BECERRA MD This examination was interpreted and the report reviewed and electronically signed by: BERNADETTE BECERRA MD on Jun 03 2023 1:41PM EST [id number] Normal [facility] ANES PRE-OPon 06-02-2023 ANES PRE-OP HNO ID: [id number] Author: CRISTINO AG MD Service: Anesthesiology Author Type: Physician Type: Anesthesia Preprocedure Evaluation Filed: 06/02/2023 08:42 Note Text: ANESTHESIOLOGY DAY OF SURGERY NOTE : 1955 Procedure Information Date/Time: 06/02/23 0745 Procedure: INSERTION PERM IMPLANTABLE DEFIBRILLATOR SYSTEM, W/TRANSVENOUS LEAD(S) (Left) - BSX single ICD hANDp on 05/29 Location: [facility] Surgeons: David Kothari MD Estimated body mass index is 23.72 kg/m? as calculated from the following: Height as of 05/29/23: 172.7 cm (5' 8). Weight as of 05/29/23: 70.8 kg (156 lb). Most recent hematocrit and potassium results: Hematocrit 39.3 06/02/2023 Potassium 4.7 06/02/2023 Relevant Problems CARDIO (+) Coronary artery disease (+) HTN (hypertension) ENDO (+) Hypothyroidism I - PHYSICAL EVALUATION AIRWAY Patient intubated: No. Tracheostomy tube not present Mallampati: II. TM distance: >3 FB. Neck ROM: full ROM without neurological symptoms. Mouth opening: adequate. Short neck: no. Thick neck: no DENTAL Dental findings: edentulous. II - ANESTHESIA PLAN ASA Score: 3 Anesthetic Plan: MAC NPO Status: adequate Beta Rere Monitoring Plan Monitoring plan: standard ASA. Post Procedure Analgesic Plan Postoperative analgesic plan: multimodal analgesia. Informed Consent Anesthetic risks, benefits, alternatives, personnel and consent discussed: yes. Patient / Responsible Alliance Party agrees to proceed: yes Patient / Surrogate agrees to blood products: blood products not planned Significant changes in the patient condition since the History and Physical, not otherwise documented in primary service progress note: no. Potential Anesthesia issues that may suggest increased risk of complications or contraindication to planned procedure: none. Vitals Value Taken Time BP 153/78 06/02/23723 Pulse 67 06/02/23723 Resp 17 06/02/23723 Temp 36.8 ?C (98.2 ?F) 06/02/23723 SpO2 98 % 06/02/23723 No current facility-administered medications on file as of 06/02/2023. Outpatient Medications as of 06/02/2023 Medication Sig - levothyroxine (SYNTHROID) 75 mcg tablet Take 1 tablet by mouth once daily. - aspirin, enteric coated (ASPIRIN, ENTERIC COATED) 81 mg EC tablet Take 1 tablet by mouth every afternoon. - atorvastatin (LIPITOR) 10 mg tablet Take 10 mg by mouth daily at bedtime. - carvedilol (COREG) 12.5 mg tablet Take 12.5 mg by mouth two times a day. TAKE WITH FOOD. - FARXIGA 10 mg tablet Take 1 tablet by mouth every afternoon. - lisinopril (ZESTRIL) 20 mg tablet Take 1 tablet by mouth every afternoon. - tamsulosin (FLOMAX) 0.4 mg Take 0.4 mg by mouth every evening. I have interviewed and examined the patient. I have reviewed the medical record and/or the pre-anesthesia evaluation, pertinent labs, and test results. This contains updated information obtained within 48 hours of Surgery/Procedure. SIGNATURE: Cristino Ag MD PATIENT NAME: Nayely Soto DATE: June 02, 2023 TIME: 8:41 AM CSN: [id number] Normal [facility] Basic metabolic 2000 panelon 06-02-2023 Anion gap [Moles/Vol] 11 mmol/L Normal 9-18 [facility] Comment on above: Order Comment: Speci men Type: BLOOD SPECIMEN Ordering Facility: [facility] Address: [address] [place] [address] Performed By: #### 2 4321-2 #### [facility] CLIA [id number] 1 [place] [address] [place] Calcium [Mass/Vol] 10.0 mg/dL Normal 8.5-10.2 [facility] Comment on above: Order Comment: Speci men Type: BLOOD SPECIMEN Ordering Facility: [facility] Address: [address] [place] [address] Performed By: #### 2 4321-2 #### [facility] CLIA [id number] 1 [place] [address] [place] Chloride [Moles/Vol] 103 mmol/L Normal 97-105 [facility] Comment on above: Order Comment: Speci men Type: BLOOD SPECIMEN Ordering Facility: [facility] Address: [address] [place] [address] Performed By: #### 2 4321-2 #### [facility] CLIA [id number] 1 [place] [address] [place] CO2 [Moles/Vol] 23 mmol/L Normal 22-30 [facility] Comment on above: Order Comment: Speci men Type: BLOOD SPECIMEN Ordering Facility: [facility] Address: [address] [place] [address] Performed By: #### 2 4321-2 #### [facility] CLIA [id number] 1 [place] [address] [place] Creatinine [Mass/Vol] 1.69 mg/dL High 0.73-1.22 [facility] Comment on above: Order Comment: Speci men Type: BLOOD SPECIMEN Ordering Facility: [facility] Address: [address] [place] [address] Performed By: #### 2 4321-2 #### [facility] CLIA [id number] [address] OF [facility] Creatinine and Glomerular filtration rate.predicted panel (S/P/Bld) 43 mL/min/1.73m??? Low >=60 [facility] Comment on above: Order Comment: Jany leger Type: BLOOD SPECIMEN Ordering Facility: [facility] Address: [address] [place] [address] Result Comment: Mariam mated Glomerular Filtration Rate (eGFR) is calculated using the 2020 CKD-EPI creatinine equation. This equation utilizes serum creatinine, sex, and age as parameters. The creatinine assay has traceable calibration to isotope dilution-mass spectrometry. Refer to KDIGO guidelines for clinical interpretation. In patients with unstable renal function, e.g. those with acute kidney injury, the eGFR may not accurately reflect actual GFR. Performed By: #### 2 4321-2 #### [facility] CLIA [id number] [address] [place] [address] [place] Glucose [Mass/Vol] 153 mg/dL High 74-99 [facility] Comment on above: Order Comment: Jany leger Type: BLOOD SPECIMEN Ordering Facility: [facility] Address: [address] [place] [address] Result Comment: The [place] Diabetes Association (ADA) provides guidance for cutoff values for fasting glucose and random glucose. The ADA defines fasting as no caloric intake for at least 8 hours. Fasting plasma glucose results between 100 to 125 mg/dL indicate increased risk for diabetes (prediabetes). Fasting plasma glucose results greater than or equal to 126 mg/dL meet the criteria for diagnosis of diabetes. In the absence of unequivocal hyperglycemia, results should be confirmed by repeat testing. In a patient with classic symptoms of hyperglycemia or hyperglycemic crisis, random plasma glucose results greater than or equal to 200 mg/dL meet the criteria for diagnosis of diabetes. Reference: Standards of Medical Care in Diabetes 2016, [place] Diabetes Association. Diabetes Care. 2016.39(Suppl 1). Performed By: #### 2 4321-2 #### [facility] CLIA [id number] [address] [place] Potassium [Moles/Vol] 4.7 mmol/L Normal 3.7-5.1 [facility] Comment on above: Order Comment: Speci men Type: BLOOD SPECIMEN Ordering Facility: [facility] Address: [address] [place] [address] Performed By: #### 2 4321-2 #### [facility] CLIA [id number] [address] [place] Sodium [Moles/Vol] 137 mmol/L Normal 136-144 [facility] Comment on above: Order Comment: Speci men Type: BLOOD SPECIMEN Ordering Facility: [facility] Address: [address] [place] [address] Performed By: #### 2 4321-2 #### [facility] CLIA [id number] [address] STATES [facility] Urea nitrogen [Mass/Vol] 35 mg/dL High 9-24 [facility] Comment on above: Order Comment: Speci men Type: BLOOD SPECIMEN Ordering Facility: [facility] Address: [address] [place] [address] Performed By: #### 2 4321-2 #### [facility] CLIA [id number] [address] STATES OF [facility] CBC panel Auto (Bld)on 06-02 Erythrocyte distribution width (RBC) [Ratio] 12.8 % Normal 11.5-15.0 [facility] Comment on above: Order Comment: Speci men Type: BLOOD SPECIMEN Ordering Facility: [facility] Address: [address] [place] [address] Performed By: #### 5 8410-2 #### [facility] CLIA [id number] [address] OF [facility] Hematocrit (Bld) [Volume fraction] 39.3 % Normal 39.0-51.0 [facility] Comment on above: Order Comment: Speci men Type: BLOOD SPECIMEN Ordering Facility: [facility] Address: [address] [place] [address] Performed By: #### 5 8410-2 #### [facility] CLIA [id number] [address] Hemoglobin (Bld) [Mass/Vol] 13.2 g/dL Normal 13.0-17.0 [facility] Comment on above: Order Comment: Speci men Type: BLOOD SPECIMEN Ordering Facility: [facility] Address: [address] [place] [address] Performed By: #### 5 8410-2 #### [facility] CLIA [id number] [address] MCH (RBC) [Entitic mass] 31.1 pg Normal 26.0-34.0 [facility] Comment on above: Order Comment: Speci men Type: BLOOD SPECIMEN Ordering Facility: [facility] Address: [address] [place] [address] Performed By: #### 5 8410-2 #### [facility] CLIA [id number] [address] MCHC (RBC) [Mass/Vol] 33.6 g/dL Normal 30.5-36.0 [facility] Comment on above: Order Comment: Speci men Type: BLOOD SPECIMEN Ordering Facility: [facility] Address: [address] [place] [address] Performed By: #### 5 8410-2 #### [facility] CLIA [id number] [address] MCV (RBC) [Entitic vol] 92.5 fL Normal 80.0-100.0 [facility] Comment on above: Order Comment: Speci men Type: BLOOD SPECIMEN Ordering Facility: [facility] Address: [address] [place] [address] Performed By: #### 5 8410-2 #### [facility] CLIA [id number] [address] OF [facility] Nucleated RBC (Bld) [#/Vol] 10*3/uL Normal <0.01 [facility] Comment on above: Order Comment: Speci men Type: BLOOD SPECIMEN Ordering Facility: [facility] Address: [address] [place] [address] Performed By: #### 5 8410-2 #### [facility] CLIA [id number] [address] [place] Platelet mean volume (Bld) [Entitic vol] 9.4 fL Normal 9.0-12.7 [facility] Comment on above: Order Comment: Speci men Type: BLOOD SPECIMEN Ordering Facility: [facility] Address: [address] [place] [address] Performed By: #### 5 8410-2 #### [facility] CLIA [id number] [address] [place] Platelets (Bld) [#/Vol] 179 10*3/uL Normal 150-400 [facility] Comment on above: Order Comment: Speci men Type: BLOOD SPECIMEN Ordering Facility: [facility] Address: [address] [place] [address] Performed By: #### 5 8410-2 #### [facility] CLIA [id number] 1 [place] [address] [place] RBC (Bld) [#/Vol] 4.25 10*6/uL Normal 4.20-6.00 [facility] Comment on above: Order Comment: Speci men Type: BLOOD SPECIMEN Ordering Facility: [facility] Address: [address] [place] [address] Performed By: #### 5 8410-2 #### [facility] CLIA [id number] 1 [place] [address] [place] WBC (Bld) [#/Vol] 6.43 10*3/uL Normal 3.70-11.00 [facility] Comment on above: Order Comment: Speci men Type: BLOOD SPECIMEN Ordering Facility: [facility] Address: [address] [place] [address] Performed By: #### 5 8410-2 #### [facility] CLIA [id number] 1 [place] [address] [place] HISTORY PHYSICALon HISTORY PHYSICAL HNO ID: [id number] Author: DAVID KOTHARI MD Service: Electrophysiology Author Type: Physician Type: H&P Filed: 06/02/2023 09:08 Note Text: UPDATED HISTORY AND PHYSICAL EXAMINATION SERVICE DATE: 06/02/2023 SERVICE TIME: 9:07 am PHYSICAL EXAM MUST BE COMPLETED ON ADMISSION The History and Physical (completed in the past 30 days) has been reviewed and the patient has been examined. The contents accurately reflect the patient's condition with the following additions or revisions since the HANDP was completed. Examination indicates no changes. LUNGS: Lungs clear to auscultation, Good diaphragmatic excursion CARDIAC: Normal S1 and S2; no rubs, murmurs, or gallops Provisional Diagnosis/Treatment Plan: Procedure(s) (LRB): INSERTION PERM IMPLANTABLE DEFIBRILLATOR SYSTEM, W/TRANSVENOUS LEAD(S) (Left) This HANDP can be found in the Electronic Medical Record dated 05/29/2023. SIGNATURE: David Kothari MD PATIENT NAME: Nayely Soto DATE: June 02, 2023 TIME: 9:07 AM Normal [facility] CNOVon 05-29-2023 CNOV Office Visit (AGCARDPOB) NAYELY SOTO ([id number]) 1955 M Date Time Provider Department 05/29/23 11:00 AM DONYA CORCORAN During your visit today, we recorded the following information about you: Pulse Blood pressure Weight Height 75/minute 126/74 70.8 kg 1.727 m Zahira Escobedo MA 05/29/2023 10:43 AM Signed NO CARDIAC CONCERNS TODAY Donya Corcoran APRN.ALESSANDRO 05/29/2023 12:07 PM Signed [facility] Cardiology Electrophysiology PRIMARY CARE PHYSICIAN: To use [...] hypertension, hyperlipidemia, hypothyroidism, diabetes, CAD s/p inferior MO, NICM/HFrEF (35%) he was referred to Dr. Kothari by his office secretary for evaluation of primary prevention ICD implantation. He was diagnosed with new onset heart failure with reduced ejection fraction, LVEF 35% October/2022. Nuclear stress test showed a large fixed perfusion defect involving the entire inferior wall, no inducible ischemia or significant imani-infarct ischemia noted. He was placed on GDMT [...] physical prior to upcoming procedure with Dr. Kothari 06/02/2023. He reports having a little bit [...] to proceed with ICD implantation with Dr. Kothari 06/02/2023, as scheduled. All questions answered to [...] and fever. HENT: Positive for sore throat (scratchy). Respiratory: Negative for cough, hemoptysis, sputum production, shortness of breath and wheezing. Cardiovascular: Positive for palpitations. Negative for chest pain, orthopnea, leg swelling and PND. Gastrointestinal: Positive for diarrhea (last evening). Negative for abdominal pain, constipation, heartburn, nausea and vomiting. Genitourinary: Negative for dysuria, frequency and urgency. Musculoskeletal: Negative for myalgias. Neurological: Negative for dizziness, loss of consciousness and (more content not included)... Normal [facility] Jenn 05-13-2023 LOY Telephone (AGCARDPOB ) NAYELY SOTO ([id number]) 1955 M Date Time Provider Department 05/13/23 DAVID KOTHARI AGCARDPOThuy During your visit today, we recorded the following information about you: India Vazquez 05/13/2023 9:18 AM Signed Patient is scheduled for an ICD Placement on 06/[address] Kothari. The hospital will call the day before between 2-5pm with your arrival time. You should not eat or drink after midnight the day before the procedure. You will need a city route driver when released from the hospital and you will stay overnight for observation. You should continue to take medications as prescribed the morning of the procedure with just a sip of water unless otherwise instructed. HANDP on 05/29 at 11am with Danielle Corcoran Spoke with Kristen Banerjee (EC/Daughter) on May 13, 2023. Informed of instructions as stated above. Patients Daughter verbalized understanding. Jaci Mcgarry, MARCIO 05/13/2023 9:39 AM Signed Pt's name has been added to [facility] procedure board. Jaci Hand RN Allergies As of Date: 05/13/2023 Noted Allergy Reaction PENICILLINS 04/04/2023 2 - Rash TETANUS AND DIPHTHER. TOX (PF) 04/04/2023 7 - Swelling Comments: As a child Date Reviewed: 04/04/2023 Reviewed by: Nirmala Cochran MA - Fully Assessed Reason for Visit: Preparations For Procedures [899] Prescriptions as of 05/13/2023 - levothyroxine (SYNTHROID) 75 mcg tablet Take 1 tablet by mouth once daily. - aspirin, enteric coated (ASPIRIN, ENTERIC COATED) 81 mg EC tablet Take 1 tablet by mouth every afternoon. - atorvastatin (LIPITOR) 10 mg tablet Take 10 mg by mouth daily at bedtime. - carvedilol (COREG) 12.5 mg tablet Take 12.5 mg by mouth two times a day. TAKE WITH FOOD. - FARXIGA 10 mg tablet Take 1 tablet by mouth every afternoon. - lisinopril (ZESTRIL) 20 mg tablet Take 1 tablet by mouth every afternoon. - tamsulosin (FLOMAX) 0.4 mg Take 0.4 mg by mouth every evening. Problem List As Of Date 05/13/2023 Noted Resolved Abnormal stress test [R94.39] 04/02/2023 Cardiomyopathy (HCC) [I42.9] 04/02/2023 Claudication of lower extremity (HCC) [I73.9] 04/02/2023 Coronary artery disease [I25.10] 04/02/2023 Diabetes mellitus (HCC) [E11.9] 04/02/2023 Dizziness [R42] 04/02/2023 Dyslipidemia [E78.5] 04/02/2023 Fatigue [R53.83] 04/02/2023 History of smoking [Z87.891] 04/02/2023 HTN (hypertension) [I10] 04/02/2023 Hypothyroidism [E03.9] 04/02/2023 Encounter Status:Closed by INDIA VAZQUEZ on 05/13/23 [facility] Jenn 05-09-2023 CNPN Telephone (AGCARDPOB ) NAYELY SOTO ([id number]) 1955 M Date Time Provider Department 05/09/23 DAVID KOTHARI AGCELVER During your visit today, we recorded the following information about you: Edmundo Denton LPN 05/09/2023 2:54 PM Signed Call received from pts daughter Kristen [phone] for update on ICD implant that was recommended in last ov on 04/04/2023. I do not see any orders Please review and advise. Edmundo Denton LPN Allergies As of Date: 05/09/2023 Noted Allergy Reaction PENICILLINS 04/04/2023 2 - Rash TETANUS AND DIPHTHER. TOX (PF) 04/04/2023 7 - Swelling Comments: As a child Date Reviewed: 04/04/2023 Reviewed by: Nirmala Cochran MA - Fully Assessed Primary Visit Diagnosis:Left ventricular systolic dysfunction [I51.9] Other Visit Diagnosis:Cardiomyopa thy, ischemic [I25.5] Order(s):SURGICAL REQUEST - ELECTIVE (11/2019) [[id number]] Order #: [id number]: 1 Prescriptions as of 05/29/2023 - levothyroxine (SYNTHROID) 75 mcg tablet Take 1 tablet by mouth once daily. - aspirin, enteric coated (ASPIRIN, ENTERIC COATED) 81 mg EC tablet Take 1 tablet by mouth every afternoon. - atorvastatin (LIPITOR) 10 mg tablet Take 10 mg by mouth daily at bedtime. - carvedilol (COREG) 12.5 mg tablet Take 12.5 mg by mouth two times a day. TAKE WITH FOOD. - FARXIGA 10 mg tablet Take 1 tablet by mouth every afternoon. - lisinopril (ZESTRIL) 20 mg tablet Take 1 tablet by mouth every afternoon. - tamsulosin (FLOMAX) 0.4 mg Take 0.4 mg by mouth every evening. Problem List As Of Date 05/09/2023 Noted Resolved Abnormal stress test [R94.39] 04/02/2023 Cardiomyopathy (HCC) [I42.9] 04/02/2023 Claudication of lower extremity (HCC) [I73.9] 04/02/2023 Coronary artery disease [I25.10] 04/02/2023 Diabetes mellitus (HCC) [E11.9] 04/02/2023 Dizziness [R42] 04/02/2023 Dyslipidemia [E78.5] 04/02/2023 Fatigue [R53.83] 04/02/2023 History of smoking [Z87.891] 04/02/2023 HTN (hypertension) [I10] 04/02/2023 Hypothyroidism [E03.9] 04/02/2023 Encounter Status:Closed by EDMUNDO DENTON on 05/29/23 [facility] Gabriella 04-04-2023 CNOV Office Visit (AGCARDPOB) NAYELY SOTO ([id number]) 1955 M Date Time Provider Department 04/04/23 10:00 AM DAVID KOTHARI AGCARDPOB During your visit today, we recorded the following information about you: Pulse Blood pressure Weight 74/minute 107/68 70.3 kg David Kothari MD 04/04/2023 12:38 PM Signed PRIMARY CARE PHYSICIAN: Outside PCP REFERRING PHYSICIAN: Gabriela Rodríguez [address] [address] No care ste[place] to display CHIEF COMPLAINT: CHF/ICD evaluation HISTORY OF PRESENT ILLNESS: Mr. Soto is a 67 year old male with PMH significant for HTN, hyperlipidemia, hypothyroidism, diabetes mellitus, CAD s/p inferior [place], NICM/HFrEF(35%) who presents today as a referral for primary prevention ICD placement. Patient was referred by his office secretary for consideration for primary prevention ICD placement. He was recently diagnosed with new onset heart failure with reduced ejection fraction with an EF of 35% in October of this year. Nuclear stress test showed a large fixed perfusion defect involving the entire inferior wall. No inducible ischemia or significant imani-infarct ischemia noted. Patient was placed on guideline [...] and no ischemia is noted though mild imani-infarct ischemia cannot be excluded. I have personally reviewed the Electrocardiogram. ASSESSMENT/PLAN: 1. Ischemic cardiomyopathy - ICD9: 414.8, ICD10: I25.5 (primary diagnosis) - ECG B/O W INTERP (MED OFFICE) 2. Coronary artery disease involving [place] coronary artery of [place] heart without angina pectoris - ICD9: 414.01, [...] hyperlipidemia, hypothyroidism, diabetes mellitus, CAD s/p inferior MO, NICM/HFrEF(35%) who presents today as a referral for primary prevention ICD place (more content not included)... [facility] CNPRuth 03-28-2023 CNPN Telephone (AGCARDPOB ) NAYELY SOTO Tyson ([id number]) 1955 M Date Time Provider Department 03/28/23 DAVID KOTHARI AGCARDPOThuy During your visit today, we recorded the following information about you: Timothy Lanier 03/28/2023 2:20 PM Signed Lvm to notify pt of new pt russell on 04/04/23 @10 am in [facility]/ Dr. Kothari. Timothy Lanier March 28, 2023 2:19 PM Allergies As of Date: 03/28/2023 (Not on File) Date Reviewed: Never Reviewed Reason for Visit: Appointment [186] Problem List As Of Date: 03/28/2023 (None) Encounter Status:Closed by TIMOTHY LANIER on 03/28/23 [facility] Basophil percentageOrdered B y: Gabriela Rodríguez on 03-24-2023 Cholesterol [Mass/Vol] 130 mg/dL <200 [facility] Comment on above: <200 mg/dL Desirable 200-240 mg/dL Borderline >240 mg/dL High Risk Triglyceride [Mass/Vol] 94 mg/dL <199 [facility] Comment on above: The drugs N-Acetylcy steine and Metamizole may falsely depress this assay.Serum Triglycerides Reference Interval Normal <150 mg/dL Borderline high 150 - 199 mg/dL High 200 - 499 mg/dL Very High > or = 500 mg/dL Laboratory - Chemistry and C hemistry - challengeOrdered By: Gabriela Rodríguez on 03-24-2023 ALT [Catalytic activity/Vol] 20 U/L 16-61 [facility] CK [Catalytic activity/Vol] 45 U/L 39-308 [facility] Laboratory - Chemistry and C hemistry - challengeOrdered By: [facility] on 03-24-2023 Cobalamin (Vitamin B12) [Mass/Vol] 227 pg/mL 211-911 [facility] Free T4 [Mass/Vol] 0.97 ng/dL 0.76-1.46 [facility] No Panel InformationOrdered By: [facility] on 03-24-2023 Prostate Specific Antigen Total 5.12 ng/mL 0.0-4.0 [facility] Comment on above: This test was perfor med using the TPSA assay method for theTraiana chemistry system. Values obtained with differentassay methods cannot be used interchangably.When changing PSA assays in the course of monitoring apatient, additional sequential testing should be carriedout to confirm baseline values. Thyroid Stimulating Hormone (TSH) 10.90 uIU/mL 0.358-3.74 [facility] Serum or plasma cholesterol in HDL measurement (mass/volume)Ordered By: Gabriela Rodríguez on 03-24-2023 Cholesterol in HDL [Mass/Vol] 36 mg/dL >40 [facility] Comment on above: The drugs N-Acetylcy steine and Metamizole may falsely depress this assay. Reference Range HDL <40 mg/dL Low HDL Cholesterol HDL >or= 60 mg/dL High HDL Cholesterol Serum or plasma cholesterol in VLDL measurement (mass/volume)Ordered By: Gabriela Rodríguez on 03-24-2023 Cholesterol in VLDL [Mass/Vol] 19 mg/dL 5-40 [facility] Serum or plasma low density lipoprotein (LDL) cholesterol measurement (mass/volume)Ordered By: Gabriela Rodríguez on 03-24-2023 Cholesterol in LDL [Mass/Vol] 75 mg/dL 0-130 [facility] Thin prep Papanicolaou smear with manual screeningOrdered By: Gabriela Rodríguez on 03-24-2023 Thin prep Papanicolaou smear with manual screening 17 U/L 15-37 [facility] Thin prep Papanicolaou smear with manual screeningOrdered By: CARMEN BURROWS on 03-24-2023 Thin prep Papanicolaou smear with manual screening 12.5 mg/L NO RANGE EST. [facility] Basophil percentageOrdered B y: Gabriela Rodríguez on 10-23-2022 Bilirubin [Mass/Vol] 0.80 mg/dL 0.20-1.00 [facility] Comment on above: For patients on eltr ombopag therapy, use of Dimension [place] TBIL is not recommended. Chloride [Moles/Vol] 101 mmol/L 98-107 [facility] Cholesterol [Mass/Vol] 154 mg/dL <200 [facility] Comment on above: <200 mg/dL Desirable 200-240 mg/dL Borderline >240 mg/dL High Risk Glucose [Mass/Vol] 126 mg/dL 74-106 [facility] Comment on above: Fasting Glucose resu lt greater than or equal to 126 mg/dL suggests DIABETES MELLITUS per A.D.A. criteria. Potassium [Moles/Vol] 4.8 mmol/L 3.5-5.1 [facility] Protein [Mass/Vol] 8.1 g/dL 6.4-8.2 [facility] Sodium [Moles/Vol] 133 mmol/L 136-145 [facility] Triglyceride [Mass/Vol] 117 mg/dL <199 [facility] Comment on above: The drugs N-Acetylcy steine and Metamizole may falsely depress this assay.Serum Triglycerides Reference Interval Normal <150 mg/dL Borderline high 150 - 199 mg/dL High 200 - 499 mg/dL Very High > or = 500 mg/dL Laboratory - Chemistry and C hemistry - challengeOrdered By: Gabriela Rodríguez on 10-23-2022 ALP [Catalytic activity/Vol] 79 U/L 45-117 [facility] ALT [Catalytic activity/Vol] 18 U/L 16-61 [facility] CK [Catalytic activity/Vol] 53 U/L 39-308 [facility] CO2 [Moles/Vol] 27.0 mmol/L 21.0-32.0 [facility] Globulin (S) [Mass/Vol] 4.2 g/dL 2.2-4.2 [facility] Urea nitrogen/Creatinine [Mass ratio] 15.6 mg/mg 10-20 [facility] No Panel InformationOrdered By: Gabriela Rodríguez on 10-23-2022 Estimated GFR (MDRD) Amer 55 mL/min >60 [facility] Comment on above: GFR Calc Estimated GFR (MDRD) Non-Af Amer 46 mL/min >60 [facility] Comment on above: Non- GFR Calc Serum or plasma albumin chris urement (mass/volume)Ordered By: Gabriela Rodríguez on 10-23-2022 Albumin [Mass/Vol] 3.9 g/dL 3.2-5.0 [facility] Serum or plasma albumin/glob ulin mass ratioOrdered By: Gabriela Rodríguez on 10-23-2022 Albumin/Globulin [Mass ratio] 0.9 {ratio} 0.9-2.4 [facility] Serum or plasma calcium chris urement (mass/volume)Ordered By: Gabriela Rodríguez on 10-23-2022 Calcium [Mass/Vol] 10.0 mg/dL 8.5-10.1 [facility] Serum or plasma cholesterol in HDL measurement (mass/volume)Ordered By: Gabriela Rodríguez on 10-23-2022 Cholesterol in HDL [Mass/Vol] 37 mg/dL >40 [facility] Comment on above: The drugs N-Acetylcy steine and Metamizole may falsely depress this assay. Reference Range HDL <40 mg/dL Low HDL Cholesterol HDL >or= 60 mg/dL High HDL Cholesterol Serum or plasma cholesterol in VLDL measurement (mass/volume)Ordered By: Gabriela Rodríguez on 10-23-2022 Cholesterol in VLDL [Mass/Vol] 23 mg/dL 5-40 [facility] Serum or plasma creatinine m easurement (mass/volume)Ordered By: Gabriela Rodríguez on 10-23-2022 Creatinine [Mass/Vol] 1.60 mg/dL 0.70-1.30 [facility] Comment on above: The validity of the calculated GFR & GFRAA in patients over 70 years has not been determined. Clinical correlation is essential. Serum or plasma low density lipoprotein (LDL) cholesterol measurement (mass/volume)Ordered By: Gabriela Rodríguez on 10-23-2022 Cholesterol in LDL [Mass/Vol] 94 mg/dL 0-130 [facility] Serum or plasma urea nitroge n measurement (mass/volume)Ordered By: Gabriela Rodríguez on 10-23-2022 Urea nitrogen [Mass/Vol] 25 mg/dL 7-18 [facility] Thin prep Papanicolaou smear with manual screeningOrdered By: Gabriela Rodríguez on 10-23-2022 Thin prep Papanicolaou smear with manual screening 16 U/L 15-37 [facility] Thin prep Papanicolaou smear with manual screening 5 5-15 [facility] Basophil percentageOrdered B y: Lauren Webb on 09-27-2022 Chloride [Moles/Vol] 101 mmol/L 98-107 [facility] Glucose [Mass/Vol] 151 mg/dL 74-106 [facility] Comment on above: Fasting Glucose resu lt greater than or equal to 126 mg/dL suggests DIABETES MELLITUS per A.D.A. criteria. Potassium [Moles/Vol] 4.5 mmol/L 3.5-5.1 [facility] Sodium [Moles/Vol] 131 mmol/L 136-145 [facility] Laboratory - Chemistry and C hemistry - challengeOrdered By: Lauren Webb on 09-27-2022 CO2 [Moles/Vol] 23.0 mmol/L 21.0-32.0 [facility] Urea nitrogen/Creatinine [Mass ratio] 12.5 mg/mg 10-20 [facility] No Panel InformationOrdered By: Lauren Webb on 09-27-2022 Estimated GFR (MDRD) Amer 52 mL/min >60 [facility] Comment on above: GFR Calc Estimated GFR (MDRD) Non-Af Amer 43 mL/min >60 [facility] Comment on above: Non- GFR Calc Serum or plasma calcium chris urement (mass/volume)Ordered By: Lauren Webb on 09-27-2022 Calcium [Mass/Vol] 9.4 mg/dL 8.5-10.1 [facility] Serum or plasma creatinine m easurement (mass/volume)Ordered By: Lauren Webb on 09-27-2022 Creatinine [Mass/Vol] 1.68 mg/dL 0.70-1.30 [facility] Comment on above: The validity of the calculated GFR & GFRAA in patients over 70 years has not been determined. Clinical correlation is essential. Serum or plasma urea nitroge n measurement (mass/volume)Ordered By: Lauren Webb on 09-27-2022 Urea nitrogen [Mass/Vol] 21 mg/dL 7-18 [facility] Thin prep Papanicolaou smear with manual screeningOrdered By: Lauren Webb on 09-27-2022 Thin prep Papanicolaou smear with manual screening 7 5-15 [facility] Basophil percentageOrdered B y: Lauren Webb on 09-13-2022 Chloride [Moles/Vol] 96 mmol/L 98-107 [facility] Glucose [Mass/Vol] 172 mg/dL 74-106 [facility] Comment on above: Fasting Glucose resu lt greater than or equal to 126 mg/dL suggests DIABETES MELLITUS per A.D.A. criteria. Potassium [Moles/Vol] 4.4 mmol/L 3.5-5.1 [facility] Sodium [Moles/Vol] 127 mmol/L 136-145 [facility] WBC (Bld) [#/Vol] 6.2 10*3/uL 4.4-11.0 [facility] Blood erythrocytes count (nu mber/volume)Ordered By: Lauren Webb on 09-13-2022 RBC (Bld) [#/Vol] 4.40 10*6/uL 4.6-6.2 [facility] Blood hemoglobin measurement (mass/volume)Ordered By: Lauren Webb on 09-13-2022 Hemoglobin (Bld) [Mass/Vol] 13.1 g/dL 13.0-16.5 [facility] Blood platelet mean volumeOr dered By: Lauren Webb on 09-13-2022 Platelet mean volume (Bld) [Entitic vol] 9.1 fL 6.2-12.0 [facility] Determination of erythrocyte mean corpuscular volume (MCV)Ordered By: Lauren Webb on 09-13-2022 MCV (RBC) [Entitic vol] 88.9 fL 80-94 [facility] Hematocrit Auto (Bld) [Volum e fraction]Ordered By: Lauren Webb on 09-13-2022 Hematocrit (Bld) [Volume fraction] 39.1 % 40-54 [facility] Laboratory - Chemistry and C hemistry - challengeOrdered By: Lauren Webb on 09-13-2022 CO2 [Moles/Vol] 25.0 mmol/L 21.0-32.0 [facility] Free T4 [Mass/Vol] 0.92 ng/dL 0.76-1.46 [facility] Urea nitrogen/Creatinine [Mass ratio] 16.4 mg/mg 10-20 [facility] Laboratory - Hematology and Cell countsOrdered By: Lauren Webb on 09-13-2022 Erythrocyte distribution width (RBC) [Entitic vol] 42.9 fL 35.1-43.9 [facility] Erythrocyte distribution width (RBC) [Ratio] 13.1 % 11.6-14.6 [facility] MCH (RBC) [Entitic mass] 29.8 pg 27.0-32.0 [facility] MCHC Auto (RBC) [Mass/Vol]Or dered By: Lauren Webb on 09-13-2022 MCHC (RBC) [Mass/Vol] 33.5 g/dL 32-36 [facility] No Panel InformationOrdered By: Lauren Webb on 09-13-2022 Estimated GFR (MDRD) Amer 49 mL/min >60 [facility] Comment on above: GFR Calc Estimated GFR (MDRD) Non-Af Amer 41 mL/min >60 [facility] Comment on above: Non- GFR Calc Prostate Specific Antigen Total 4.72 ng/mL 0.0-4.0 [facility] Comment on above: This test was perfor med using the TPSA assay method for the[facility] chemistry system. Values obtained with differentassay methods cannot be used interchangably.When changing PSA assays in the course of monitoring apatient, additional sequential testing should be carriedout to confirm baseline values. Thyroid Stimulating Hormone (TSH) 17.10 uIU/mL 0.358-3.74 [facility] Vitamin D 25-Hydroxy 35.8 ng/mL [facility] Comment on above: Vitamin D 25(OH) Sta tus Range Deficiency <20 ng/mL (50nmol/L) Insufficiency 20 - 30 ng/mL (50 - 75 nmol/L) Sufficiency 30 - 100 ng/mL (75 - 250 nmol/L) Toxicity >100 ng/mL (>250 nmol/L) Platelets bldOrdered By: Shima Webb on 09-13-2022 Platelets (Bld) [#/Vol] 172 10*3/uL 150-450 [facility] Serum or plasma calcium chris urement (mass/volume)Ordered By: Lauren Webb on 09-13-2022 Calcium [Mass/Vol] 9.6 mg/dL 8.5-10.1 [facility] Serum or plasma creatinine m easurement (mass/volume)Ordered By: Lauren Webb on 09-13-2022 Creatinine [Mass/Vol] 1.77 mg/dL 0.70-1.30 [facility] Comment on above: The validity of the calculated GFR & GFRAA in patients over 70 years has not been determined. Clinical correlation is essential. Serum or plasma urea nitroge n measurement (mass/volume)Ordered By: Lauren Webb on 09-13-2022 Urea nitrogen [Mass/Vol] 29 mg/dL 7-18 [facility] Thin prep Papanicolaou smear with manual screeningOrdered By: Lauren Webb on 09-13-2022 Thin prep Papanicolaou smear with manual screening 6 5-15 [facility] Thin prep Papanicolaou smear with manual screening 31.1 mg/L NO RANGE EST. [facility] Ova and parasitesOrdered By: Lauren Webb on 08-17-2022 Ova and parasites identified LM Nom (Unsp spec) [facility] Basophil percentageOrdered B y: Lauren Webb on 08-08-2022 Cholesterol [Mass/Vol] 223 mg/dL <200 [facility] Comment on above: <200 mg/dL Desirable 200-240 mg/dL Borderline >240 mg/dL High Risk Triglyceride [Mass/Vol] 92 mg/dL <199 [facility] Comment on above: The drugs N-Acetylcy steine and Metamizole may falsely depress this assay.Serum Triglycerides Reference Interval Normal <150 mg/dL Borderline high 150 - 199 mg/dL High 200 - 499 mg/dL Very High > or = 500 mg/dL Laboratory - Chemistry and C hemistry - challengeOrdered By: Lauren Webb on 08-08-2022 Free T4 [Mass/Vol] 0.48 ng/dL 0.76-1.46 [facility] No Panel InformationOrdered By: Lauren Webb on 08-08-2022 Miscellaneous Test See comment [facility] Comment on above: TEST RESULTS LIMITSS tool CultureSalmonella/Shigella Screen Final reportResult 1No Salmonella or Shigella recovered.Campylobacter Culture Final reportResult 1No Campylobacter species isolated.E coli Shiga Toxin EIA Negative Negative ____ TESTING PERFORMED AT [facility]. ORIGINAL REPORT ON FILE IN LAB CONTAINS ADDITIONAL TEST SITE INFORMATION. Prostate Specific Antigen Screen 6.03 ng/mL 0.00-4.00 [facility] Comment on above: This test was perfor med using the TPSA assay method for the[employer] chemistry system. Values obtained with differentassay methods cannot be used interchangably.When changing PSA assays in the course of monitoring apatient, additional sequential testing should be carriedout to confirm baseline values. Thyroid Stimulating Hormone (TSH) 55.90 uIU/mL 0.358-3.74 [facility] Ova and parasitesOrdered By: Lauren Webb on 08-08-2022 Ova and parasites identified LM Nom (Unsp spec) [facility] Serum or plasma cholesterol in HDL measurement (mass/volume)Ordered By: Lauren Webb on 08-08-2022 Cholesterol in HDL [Mass/Vol] 44 mg/dL >40 [facility] Comment on above: The drugs N-Acetylcy steine and Metamizole may falsely depress this assay. Reference Range HDL <40 mg/dL Low HDL Cholesterol HDL >or= 60 mg/dL High HDL Cholesterol Serum or plasma cholesterol in VLDL measurement (mass/volume)Ordered By: Lauren Webb on 08-08-2022 Cholesterol in VLDL [Mass/Vol] 18 mg/dL 5-40 [facility] Serum or plasma low density lipoprotein (LDL) cholesterol measurement (mass/volume)Ordered By: Lauren Webb on 08-08-2022 Cholesterol in LDL [Mass/Vol] 161 mg/dL 0-130 [facility] Whole blood hemoglobin A1c/t otal hemoglobin ratio (mass fraction)Ordered By: Lauren Webb on 08-08-2022 HbA1c (Bld) [Mass fraction] 6.8 % 3.8-5.6 [facility] Comment on above: Normal < 5.7 % Predi abetic 5.7 - 6.4 % Diabetic >or= 6.5 % Please note range changes. Absolute lymphocyte countOrd ered By: Dr. Ontiveros on 08-07-2022 Lymphocytes Auto (Unsp spec) [#/Vol] 2.79 10*3/uL 0.83-4.51 [facility] Basophil percentageOrdered B y: Dr. Ontiveros on 08-07-2022 Basophils/100 WBC (Bld) 0.6 % 0-1 [facility] Chloride [Moles/Vol] 101 mmol/L 98-107 [facility] Eosinophils/100 WBC (Bld) 3.0 % 0-5 [facility] Glucose [Mass/Vol] 153 mg/dL 74-106 [facility] Comment on above: Fasting Glucose resu lt greater than or equal to 126 mg/dL suggests DIABETES MELLITUS per A.D.A. criteria. Neutrophils (Bld) [#/Vol] 2.8 10*3/uL 2.0-7.7 [facility] Neutrophils/100 WBC (Bld) 43.9 % 47-70 [facility] Potassium [Moles/Vol] 3.8 mmol/L 3.5-5.1 [facility] Sodium [Moles/Vol] 131 mmol/L 136-145 [facility] WBC (Bld) [#/Vol] 6.4 10*3/uL 4.4-11.0 [facility] Blood erythrocytes count (nu mber/volume)Ordered By: Dr. Ontiveros on 08-07-2022 RBC (Bld) [#/Vol] 4.46 10*6/uL 4.6-6.2 [facility] Blood hemoglobin measurement (mass/volume)Ordered By: Dr. Ontiveros on 08-07-2022 Hemoglobin (Bld) [Mass/Vol] 13.3 g/dL 13.0-16.5 [facility] Blood lymphocytes/100 leukoc ytesOrdered By: Dr. Ontiveros on 08-07-2022 Lymphocytes/100 WBC (Bld) 43.9 % 19-41 [facility] Blood monocytes/100 leukocyt esOrdered By: Dr. Ontiveros on 08-07-2022 Monocytes/100 WBC (Bld) 8.3 % 0-10 [facility] Blood platelet mean volumeOr dered By: Dr. Ontiveros on 08-07-2022 Platelet mean volume (Bld) [Entitic vol] 9.5 fL 6.2-12.0 [facility] Determination of erythrocyte mean corpuscular volume (MCV)Ordered By: Dr. Ontiveros on 08-07-2022 MCV (RBC) [Entitic vol] 90.4 fL 80-94 [facility] Hematocrit Auto (Bld) [Volum e fraction]Ordered By: Dr. Ontiveros on 08-07-2022 Hematocrit (Bld) [Volume fraction] 40.3 % 40-54 [facility] Laboratory - Chemistry and C hemistry - challengeOrdered By: Dr. Ontiveros on 08-07-2022 CO2 [Moles/Vol] 25.0 mmol/L 21.0-32.0 [facility] Urea nitrogen/Creatinine [Mass ratio] 12.0 mg/mg 10-20 [facility] Laboratory - Hematology and Cell countsOrdered By: Dr. Ontiveros on 08-07-2022 Erythrocyte distribution width (RBC) [Entitic vol] 45.9 fL 35.1-43.9 [facility] Erythrocyte distribution width (RBC) [Ratio] 13.9 % 11.6-14.6 [facility] Immature granulocytes/100 WBC (Bld) 0.300 % 0.0-0.9 [facility] Comment on above: IG% - Immature Granu locytes (promyelocytes, myelocytes and metamyelocytes) > 1% indicates that a LEFT SHIFT is Present. MCH (RBC) [Entitic mass] 29.8 pg 27.0-32.0 [facility] Nucleated RBC/100 WBC (Bld) [Ratio] 0 % 0-5 [facility] MCHC Auto (RBC) [Mass/Vol]Or dered By: Dr. Ontiveros on 08-07-2022 MCHC (RBC) [Mass/Vol] 33.0 g/dL 32-36 [facility] No Panel InformationOrdered By: Dr. Ontiveros on 08-07-2022 Estimated Creatinine Clearance Calc 53.96 ml/min [facility] Estimated GFR (MDRD) Amer 74 mL/min >60 [facility] Comment on above: GFR Calc Estimated GFR (MDRD) Non-Af Amer 61 mL/min >60 [facility] Comment on above: Non- GFR Calc Troponin I High Sensitivity 36 pg/mL 3.0-78.0 [facility] Comment on above: Please Note: New Svetlana t Units and Gender Specific Reference Ranges. For more information see Policy Stat Procedure [place] High Sensitivity Troponin (TNIH) and attachments. Platelets bldOrdered By: Dr. Ontiveros on 08-07-2022 Platelets (Bld) [#/Vol] 195 10*3/uL 150-450 [facility] Serum or plasma calcium chris urement (mass/volume)Ordered By: Dr. Ontiveros on 08-07-2022 Calcium [Mass/Vol] 9.5 mg/dL 8.5-10.1 [facility] Serum or plasma creatinine m easurement (mass/volume)Ordered By: Dr. Ontiveros on 08-07-2022 Creatinine [Mass/Vol] 1.25 mg/dL 0.70-1.30 [facility] Comment on above: The validity of the calculated GFR & GFRAA in patients over 70 years has not been determined. Clinical correlation is essential. Serum or plasma urea nitroge n measurement (mass/volume)Ordered By: Dr. Ontiveros on 08-07-2022 Urea nitrogen [Mass/Vol] 15 mg/dL 7-18 [facility] Thin prep Papanicolaou smear with manual screeningOrdered By: Dr. Ontiveros on 08-07-2022 Thin prep Papanicolaou smear with manual screening 5 5-15 [facility] Vital Signs Date Time Vital Sign Value Performing Clinician Rola kaba 09-28-2024 07:35-0400 Body height 172.72 cm Lauren Webb [employer] Work Phone: [phone])113-631667 [place] [address] 09-28-2024 07:35-0400 Body mass index (BMI) [Ratio] 26.1 kg/m2 Lauren Webb [employer] PROF[employer] Work Phone: 2(248)257-837167 [place] [address] 09-28-2024 07:35-0400 Body weight 78.01 kg Lauren Webb [employer] Work Phone: [phone])224-911167 [place] [address] 09-28-2024 07:35-0400 Diastolic blood pressure 70 mm[Hg] Lauren Webb [employer] PROFESS[employer] Work Phone: 5(272)593-743467 [place] [address] 09-28-2024 07:35-0400 Heart rate 62 /min Lauren Webb [employer] Work Phone: 5(685)873-669967 [place] [address] 09-28-2024 07:35-0400 Respiratory rate 16 /min Lauren Webb [employer] Work Phone: 4(261)591-149867 [place] [address] 09-28-2024 07:35-0400 Systolic blood pressure 113 mm[Hg] Lauren Webb [employer] PROF[employer] Work Phone: 0(711)808-405267 [place] [address] 03-27-2023 10:13-0500 Body height 172.72 cm [facility] Work Phone: 4(540)027-432467 [place] [address] 03-27-2023 10:13-0500 Body mass index (BMI) [Ratio] 23.7 kg/m2 [facility] Work Phone: 7(891)085-212167 [place] [address] 03-27-2023 10:13-0500 Body temperature 97.3 [degF] [facility] Work Phone: 8(704)444-664267 [place] [address] 03-27-2023 10:13-0500 Body weight 70.76 kg [facility] Work Phone: 5(094)336-428567 [place] [address] 03-27-2023 10:13-0500 Diastolic blood pressure 73 mm[Hg] [facility] Work Phone: 3(096)020-071967 [place] [address] 03-27-2023 10:13-0500 Heart rate 60 /min [facility] Work Phone: 2(540)250-873867 [place] [address] 03-27-2023 10:13-0500 Respiratory rate 18 /min [facility] Work Phone: 2(048)086-203767 [place] [address] 03-27-2023 10:13-0500 SaO2% (BldA) [Mass fraction] 98 % [facility] Work Phone: 5(976)700-150567 [place] [address] 03-27-2023 10:13-0500 Systolic blood pressure 113 mm[Hg] [facility] Work Phone: 4(374)258-898667 [place] [address] 03-12-2023 14:12-0500 Body mass index (BMI) [Ratio] 23.8 kg/m2 [facility] Work Phone: 0(757)383-493667 [place] [address] 03-12-2023 14:12-0500 Body weight 71.21 kg [facility] Work Phone: 9(048)481-143667 [place] [address] 03-12-2023 14:12-0500 Diastolic blood pressure 74 mm[Hg] [facility] Work Phone: 4(235)430-328467 [place] [address] 03-12-2023 14:12-0500 Heart rate 64 /min [facility] Work Phone: 0(416)782-160067 [place] [address] 03-12-2023 14:12-0500 Respiratory rate 16 /min [facility] Work Phone: 9(607)671-855967 [place] [address] 03-12-2023 14:12-0500 Systolic blood pressure 116 mm[Hg] [facility] Work Phone: 7(179)625-149767 [place] [address] 12-04-2022 10:31-0400 Body height 172.[address] [facility] Work Phone: 2(404)801-559267 [place] [address] 12-04-2022 10:31-0400 Body mass index (BMI) [Ratio] 24.9 kg/m2 [facility] Work Phone: 3(458)456-410067 [place] [address] 12-04-2022 10:31-0400 Body weight 74.38 kg [facility] Work Phone: 4(370)582-673967 [place] [address] 12-04-2022 10:31-0400 Diastolic blood pressure 78 mm[Hg] [facility] Work Phone: 7(267)326-293467 [place] [address] 12-04-2022 10:31-0400 Heart rate 73 /min [facility] Work Phone: 7(048)427-588967 [place] [address] 12-04-2022 10:31-0400 Respiratory rate 16 /min [facility] Work Phone: 6(776)128-298967 [place] [address] 12-04-2022 10:31-0400 Systolic blood pressure 137 mm[Hg] [facility] Work Phone: 1(520)765-590767 [place] [address] 11-26-2022 10:07-0400 Body temperature 98.6 [degF] [facility] Work Phone: 7(566)153-758967 [place] [address] 11-26-2022 10:07-0400 Body weight 76.65 kg [facility] Work Phone: 4(636)695-722067 [place] [address] 11-26-2022 10:07-0400 Diastolic blood pressure 77 mm[Hg] [facility] Work Phone: 4(943)417-994567 [place] [address] 11-26-2022 10:07-0400 Heart rate 68 /min [facility] Work Phone: 9(337)691-788867 [place] [address] 11-26-2022 10:07-0400 Respiratory rate 16 /min [facility] Work Phone: 5(757)202-887967 [place] [address] 11-26-2022 10:07-0400 SaO2% (BldA) [Mass fraction] 96 % [facility] Work Phone: 8(251)698-274267 [place] [address] 11-26-2022 10:07-0400 Systolic blood pressure 137 mm[Hg] [facility] Work Phone: 5(391)211-638067 [place] [address] 10-22-2022 10:11-0400 Body height 172.72 cm [facility] Work Phone: 3(559)045-502367 [place] [address] 10-22-2022 10:11-0400 Body mass index (BMI) [Ratio] 26.9 kg/m2 [facility] Work Phone: [facility] 10-22-2022 10:11-0400 Body weight 80.28 kg [facility] Work Phone: [facility] 10-22-2022 10:11-0400 Diastolic blood pressure 76 mm[Hg] [facility] Work Phone: 1(945)419-549813 [place] [address] 10-22-2022 10:11-0400 Heart rate 74 /min [facility] Work Phone: 6(319)324-743513 [place] [address] 10-22-2022 10:11-0400 Respiratory rate 18 /min [facility] Work Phone: 6(328)381-805113 [place] [address] 10-22-2022 10:11-0400 Systolic blood pressure 144 mm[Hg] [facility] Work Phone: 4(952)536-582413 [place] [address] 08-07-2022 19:09-0400 Diastolic blood pressure 98 mm[Hg] [facility] 08-07-2022 19:09-0400 Heart rate 72 /min [facility] 08-07-2022 19:09-0400 Respiratory rate 14 /min [facility] 08-07-2022 19:09-0400 SaO2% (BldA) [Mass fraction] 95 % [facility] 08-07-2022 19:09-0400 Systolic blood pressure 163 mm[Hg] [facility] 08-07-2022 17:01-0400 Body height 172.72 cm [facility] 08-07-2022 17:01-0400 Body mass index (BMI) [Ratio] 28.8 kg/m2 [facility] 08-07-2022 17:01-0400 Body temperature 97.3 [degF] [facility] 08-07-2022 17:01-0400 Body weight 85.86 kg [facility] Encounters Encounter Date Encounter Type Care Provider Facility Start: 11-12-2024 bharati Rodríguez Facility:[facility] Start: 09-28-2024 End: 09-28-[address] Gabriela Rodríguez MD -[facility] Work Phone: Start: 09-28-2024 End: 09-28-2024 ambulatory Lauren Webb [employer] PROFESSOR[employer] Work Phone: [facility] Work Phone: Start: 09-06-2024 End: 09-06-2024 ambulatory Lauren Webb MASS COMMUNICATIONS PROFESSOR-C Work Phone: [facility] Work Phone: Start: 09-06-2024 End: 09-06-[address] Moose Espinosa MD -[facility] Work Phone: Start: 07-15-2024 End: 07-15-2024 ambulatory Lauren Webb C Facility:[facility] Start: 07-15-2024 End: 07-15-[address] Moose Espinosa MD -[facility] Work Phone: Start: 06-07-2024 End: 06-07-2024 ambulatory Lauren Webb [facility] Facility:[facility] Start: 06-07-2024 End: 06-07-[address] Moose Espinosa MD -[facility] Work Phone: Start: 05-24-2024 End: 05-24-2024 Patient encounter procedure [facility] Lauren Webb MASS COMMUNICATIONS PROFESSOR-C -Laboratory Work Phone: Start: 05-24-2024 End: 05-24-2024 ambulatory Nona Beltran Facility:[facility] Start: 04-08-2024 End: 04-08-2024 ambulatory [facility] Facility:[facility] Start: 03-08-2024 End: 03-08-2024 ambulatory Lauren Webb C Facility:[facility] Start: 02-02-2024 End: 02-02-2024 ambulatory Moose Espinosa Facility:[facility] Start: 12-22-2023 End: 12-22-2023 ambulatory Moose Espinosa Facility:[facility] Start: 11-18-2023 End: 11-18-2023 ambulatory Carroll Martinez Facility:[facility] Start: 06-11-2023 End: 06-11-2023 ambulatory [facility] Work Phone: [facility] Work Phone: Start: 06-11-2023 End: 06-11-2023 Patient encounter procedure [facility] Work Phone: [facility]-Laboratory Work Phone: Start: 06-09-2023 End: 06-09-2023 Patient encounter procedure [facility] Work Phone: [facility] Work Phone: Start: 06-02-2023 End: 06-03-2023 ambulatory DAVID MATTO Facility:[facility] Start: 05-29-2023 End: 05-29-2023 ambulatory DONYA CORCORAN Facility:[facility] Start: 04-04-2023 End: 04-04-2023 ambulatory DAVID MATTO Facility:[facility] Start: 03-27-2023 End: 03-27-2023 Patient encounter procedure [facility] Work Phone: [facility] Work Phone: Start: 03-24-2023 End: 03-24-2023 ambulatory [facility] Work Phone: [facility] Work Phone: Start: 03-24-2023 End: 03-24-2023 Patient encounter procedure [facility] Work Phone: [facility]-Laboratory Work Phone: Start: 03-12-2023 End: 03-12-2023 Patient encounter procedure [facility] Work Phone: [facility] Work Phone: Start: 01-15-2023 Non-patient / Non-visit [facility] Work Phone: [facility] Work Phone: Start: 01-13-2023 Non-patient / Non-visit [facility] Work Phone: [facility] Start: 01-13-2023 End: 01-13-2023 ambulatory [facility] Work Phone: [facility] Work Phone: Start: 01-13-2023 End: 01-13-2023 Patient encounter procedure [facility] Work Phone: [facility]-Cardiovascular Services Work Phone: Start: 01-11-2023 End: 01-11-2023 ambulatory [facility] Work Phone: [facility] Work Phone: Start: 01-11-2023 End: 01-11-2023 Patient encounter procedure [facility] Work Phone: [facility]-Ultrasound, [facility] Work Phone: Start: 12-04-2022 End: 12-04-2022 Patient encounter procedure [facility] Work Phone: [facility] Work Phone: Start: 12-04-2022 Non-patient / Non-visit [facility] Work Phone: [facility] Start: 12-04-2022 End: 12-04-2022 Patient encounter procedure [facility] Work Phone: [facility]-Cardiovascular Services Work Phone: Start: 11-26-2022 End: 11-26-2022 Patient encounter procedure [facility] Work Phone: [facility] Work Phone: Start: 11-11-2022 Non-patient / Non-visit [facility] Work Phone: [facility] Start: 11-11-2022 End: 11-11-2022 ambulatory [facility] Work Phone: [facility] Work Phone: Start: 11-11-2022 End: 11-11-2022 Patient encounter procedure [facility] Work Phone: [facility]-Cardiovascular Services Work Phone: Start: 10-23-2022 End: 10-23-2022 ambulatory [facility] Work Phone: [facility] Work Phone: Start: 10-23-2022 End: 10-23-2022 Patient encounter procedure [facility] Work Phone: [facility]-Laboratory Work Phone: Start: 10-22-2022 End: 10-22-2022 Patient encounter procedure [facility] Work Phone: [facility] Work Phone: Start: 10-10-2022 Non-patient / Non-visit [facility] Work Phone: [facility] Start: 10-10-2022 End: 10-10-2022 ambulatory [facility] Work Phone: [facility] Work Phone: Start: 10-10-2022 End: 10-10-2022 Patient encounter procedure [facility] Work Phone: [facility]-Cardiovascular Services Start: 09-27-2022 End: 09-27-2022 ambulatory [facility] Work Phone: Start: 09-27-2022 End: 09-27-2022 Patient encounter procedure [facility]Labor[facility] Start: 09-13-2022 End: 09-13-2022 ambulatory [facility] Work Phone: Start: 09-13-2022 End: 09-13-2022 Patient encounter procedure [facility]Laboratory Start: 08-08-2022 End: 08-08-2022 Patient encounter procedure [facility]Labor[facility] Start: 08-07-2022 End: 08-07-2022 Emergency department patient visit [facility]-Emergency Department Procedures Date Procedure Procedure Detail Performing Clinician Start: 05-24-2024 Microalbuminuria measurement Lauren Webb MASS COMMUNICATIONS PROFESSOR-C Work Phone: Start: 05-24-2024 Parathyroid hormone measurement Lauren Webb MASS COMMUNICATIONS PROFESSOR-C Work Phone: Start: 05-24-2024 Assay of phosphorus inorganic Lauren Webb MASS COMMUNICATIONS PROFESSOR-C Work Phone: Start: 05-24-2024 Measurement of renal function Lauren Webb MASS COMMUNICATIONS PROFESSOR-C Work Phone: Comment on above: GFR Calc Start: 01-11-2023 US urinary tract [facility] Work Phone: Start: 10-10-2022 Cardiovascular stres s test using pharmacologic stress agent [facility] Work Phone: Start: 08-08-2022 Ova OR parasites identification [facility] Work Phone: Start: 08-07-2022 Plain chest X-ray Ova OR parasites identification Plan of Treatment Date Care Activity Detail Author Start: 03-12-2023 Patient referral [facility] Work Phone: Ankle brachial press ure index [facility] Colonoscopy [facility] Patient Education ED Hypertensio n, Established [facility] Work Phone: Patient referral [facility] Work Phone: US Heart [facility] US scan of abdominal aorta [facility] Payers Date Payer Category Payer Self-pay 2022 Unknown [id number] Medicare MEDICARE PART A B [id number] Unknown [id number] 2.16.8 [id number] Unknown [id number] 2.16.8 [id number] Unknown [id number] 2.16.8 [id number] Unknown [id number] 2.16.8 [id number] Unknown [id number] 2.16.8 [id number] Unknown [id number] 2.16.8 [id number] Unknown [id number] 2.16.8 [id number] Unknown [id number] 2.16.8 [id number] Unknown [id number] 2.16.8 [id number] Unknown [id number] 2.16.8 [id number] Unknown [id number] 2.16.8 [id number] Unknown [id number] 2.16.8 [id number] Unknown [id number] 2.16.8 [id number] Social History Date Type Detail Facility Start: 08-07-2022 End: 03-27-2023 Tobacco smoking status MNIS Unknown if ever smoked [facility] Start: 1955 Sex Assigned At Male [facility] Start: 03-27-2023 Tobacco smoking stat us MNIS Ex-smoker (finding) [facility] Mental Status Date Assessment Result Facility 08-07-2022 Cognitive function Level Of Cons ciousness Awake;Alert;Appropriate;Follow s Commands [facility] Work Phone: Clinical Notes 04-04-2023 to 09-28-2024 Note Date & Type Note Facility 09-28-2024 Progress note [facility] 07-15-2024 Evaluation note Diagnosis Onset Date Resolution Presence of implantable cardioverter-defibrillat or (ICD) acute July 15, 2024 12:55pm Cardiomyopathy chronic June 12:55pm [facility] Work Phone: 1(441) 834-565303-20-2025 Evaluation note* Diagnosis Onset Date Resolution Status Admit Date Cardiomyopathy chronic June 12:55pm Presence of implantable cardioverter-defibrillator (ICD) chronic July 15, 2024 12:55pm Cardiomyopathy chronic September 28, 2024 12:52pm Coronary artery disease chronic J 2024 12:52pm Diabetes mellitus chronic September 12:52pm Dyslipidemia chronic September 28 12:52pm HTN (hypertension) chronic September 282024 12:52pm Hypothyroidism chronic September 28, 2024 12:52pm Peripheral artery disease chronic September 28, 2024 12:52pm Presence of implantable cardioverter-defibrillator (ICD) chronic September 28, 2024 12:52pm [facility] Work Phone: [phone]) 938-202402-06-2024 NoteHNO ID: [id number] Author: MECHELLE WAN RN Service: Care Management Author Type: Registered Nurse Type: Care Mgt Initial Assessment Filed: 06/03/2023 09:31 Note Text: CARE MANAGEMENT: ASSESSMENT AND DISCHARGE PLAN SERVICE DATE: June 03, 2023 SERVICE TIME: 9:28 AM PCP: No primary care provider on file. Primary Contact: Extended Emergency Contact Information Primary Emergency Contact: Kristen Banerjee Mobile Relation: Daughter Preferred language: URUGUAYAN Lending Consultant needed? No Admission Status: Ambulatory Surgery Insurance [...] you manage to accomplish the following: Independent: Ambulation;Bathe/Shower;Dress;Meals/Meal Prep;Going to the bathroom;Medication Management;Transportation to appointments/community Current Services/Equipment Current Post-Acute Service(s): None Discharge Planning Patient Goal(s): Be able to go home [place] of Choice Explained: [place] of Choice Given: No Reason Not Given: [...] Prescriptions Post-Acute Discharge Plan: Patient admitted to [facility] post defibrillator insertion. Patient from home in [place], [place]. [place] / apartment with basement laundry. +drives. +PCP - Lauren Webb APRN, CNP +Rx - [facility] -DME Anticipate patient will discharge home with self care when medically ready. Patient stated his daughter Kristen will most likely transport him home. SIGNATURE: Mechelle Wan RN PATIENT NAME: Nayely Soto DATE: June 03, 2023 TIME: 9:28 AM CONTACT #: [phone] Note HNO ID: [id number] Author: GRETA ESPITIA RN Service: Electrophysiology Author Type: Registered Nurse Type: Progress Notes Filed: 06/03/2023 09:29 Note Text: POD1 ICD implant - interrogation and testing completed. Teaching deferred until dtr arrives.Preliminary report on chart; full report in Chart Review, cardiac tab.[facility]02-01-2024 NoteHNO ID: [id number] Author: DONYA CORCORAN APRN.ALESSANDRO Service: ? Author Type: Nurse Practitioner Type: Progress Notes Filed: 05/29/2023 12:07 Note Text: [facility] Cardiology Electrophysiology PRIMARY CARE PHYSICIAN: To use [...] hypertension, hyperlipidemia, hypothyroidism, diabetes, CAD s/p inferior MO, NICM/HFrEF (35%) he was referred to Dr. Kothari by his office secretary for evaluation of primary prevention ICD implantation. He was diagnosed with new onset heart failure with reduced ejection fraction, LVEF 35% October/2022. Nuclear stress test showed a large fixed perfusion defect involving the entire inferior wall, no inducible ischemia or significant imani-infarct ischemia noted. He was placed on GDMT [...] physical prior to upcoming procedure with Dr. Kothari 06/02/2023. He reports having a little bit [...] to proceed with ICD implantation with Dr. Kothari 06/02/2023, as scheduled. All questions answered to [...] and fever. HENT: Positive for sore throat (scratchy). Respiratory: Negative for cough, hemoptysis, sputum production, [...] diaphoretic. HENT: Head: Norm (more content not included)...[facility]12-08-2023 NoteHNO ID: [id number] Author: David Kothari MD Service: ? Author Type: Physician Type: Progress Notes Filed: 04/04/2023 12:38 PM Note Text: PRIMARY CARE PHYSICIAN: Outside PCP REFERRING PHYSICIAN: Gabriela Rodríguez [address] [address] No care [place] to display CHIEF COMPLAINT: CHF/ICD evaluation HISTORY OF PRESENT ILLNESS: Mr. Soto is a 67 year old male with PMH significant for HTN, hyperlipidemia, hypothyroidism, diabetes mellitus, CAD s/p inferior MO, NICM/HFrEF(35%) who presents today as a referral for primary prevention ICD placement. Patient was referred by his office secretary for consideration for primary prevention ICD placement. He was recently diagnosed with new onset heart failure with reduced ejection fraction with an EF of 35% in October of this year. Nuclear stress test showed a large fixed perfusion defect involving the entire inferior wall. No inducible ischemia or significant imani-infarct ischemia noted. Patient was placed on guideline [...] and no ischemia is noted though mild imani-infarct ischemia cannot be excluded. I have personally reviewed the Electrocardiogram. ASSESSMENT/PLAN: 1. Ischemic cardiomyopathy - ICD9: 414.8, ICD10: I25.5 (primary diagnosis) - ECG B/O W INTERP (MED OFFICE) 2. Coronary artery disease involving [place] coronary artery of [place] heart without angina pectoris - ICD9: 414.01, [...] hyperlipidemia, hypothyroidism, diabetes mellitus, CAD s/p inferior MO, NICM/HFrEF(35%) who presents today as a referral for primary prevention ICD placement. Patient was diagnosed with new onset heart failure with reduced ejection fraction EF of 35% which has not improved with guideline directed medical therapy, stress test revealing no inducible ischemia but a large inferior scar. He (more content not included)...[facility] noteNo assessment information [facility] Work Phone: Evaluation note* Diagnosis Onset Date Resolution Status Abnormal stress test acute Claudication of lower extremity acute Cardiomyopathy chronic Coronary artery disease applied exercise physiologist nina Diabetes mellitus chronic Dyslipidemia chronic HTN (hypertension) chronic [facility] Work Phone: Evaluation note* Diagnosis Onset Date Resolution Status Abnormal stress test acute Cardiomyopathy chronic Claudication of lower extremity chronic Coronary artery disease applied exercise physiologist nina Diabetes mellitus chronic Dyslipidemia chronic HTN (hypertension) chronic Peripheral artery disease [place] Claudication of lower extremity chronic Peripheral artery disease [place] Cardiomyopathy chronic Claudication of lower extremity chronic Coronary artery disease applied exercise physiologist nina Diabetes mellitus chronic Dyslipidemia chronic HTN (hypertension) chronic Hypothyroidism chronic [facility] Work Phone: Evaluation note* Diagnosis Onset Date Resolution Status Cardiomyopathy chronic Claudication of lower extremity chronic Coronary artery disease applied exercise physiologist nina Diabetes mellitus chronic Dyslipidemia chronic HTN (hypertension) chronic Hypothyroidism chronic Peripheral artery disease [place] Cardiomyopathy chronic Claudication of lower extremity chronic Coronary artery disease applied exercise physiologist nina Diabetes mellitus chronic Dyslipidemia chronic HTN (hypertension) chronic Hypothyroidism chronic Peripheral artery disease [place] Positive occult stool blood test acute [facility] Work Phone: Evaluation note* Diagnosis Onset Date Resolution Status Cardiomyopathy chronic Claudication of lower extremity chronic Coronary artery disease applied exercise physiologist nina Diabetes mellitus chronic Dyslipidemia chronic HTN (hypertension) chronic Hypothyroidism chronic Peripheral artery disease [place] Positive occult stool blood test acute Presence of implantable card ioverter-defibrillator (ICD) acute Cardiomyopathy chronic [facility] Work Phone: Progress note Author Gabriela Rodríguez [facility] Note Date/Time September 28, 2024 1:02p m [facility] [address] [place] [address]. [address] [place] [address] OFFICE VISIT Date of Service: 09/28/24 MR#: [id number] Acct: [id number] Name: NAYELY SOTO Rep #: [id number] : 1955 Provider: Dr. William Rodríguez MD Age/Sex: 69/M Location: [facility] Status: Signed HPI HPI History of Present Illness Details: This gentleman with history of inferior myocardial infarction, diagnosed on nuclear stress test and ECG, peripheral arterial disease, dyslipidemia and ischemic cardiomyopathy is here for follow-up visit. Denies any chest pains either at rest or with exertion. No shortness of breath. No orthopnea or PND. No ankle edema. Denies any palpitations. Patient has claudication symptoms of the left calf with walking long distance. According to him, it does not interfere with his lifestyle. Intake Vital Signs 04/08/24 13:34 09/28/24 07:35 Height 5 ft 8 in 5 ft 8 in Weight: 172 lb BMI 26.1 BP 113/70 Blood Pressure Location Lt brachial Position Sitting Respiration 16 Pulse 62 Pulse Source NIBP Intake Visit Reasons: 6 M FU Lending Consultant Required: No Accompanied by: Daughter Is patient in pain?: No Allergies Tetanus Vaccines and Toxoid Allergy (Intermediate, Verified 09/28/24 12:39) Swelling Food Allergies: Uncoded Allergy (Verified 09/28/24 12:39) Swelling Penicillins Allergy (Verified 09/28/24 12:39) Swelling Medications ?Medication ?Instructions ?Recorded ?Confirmed ?Type lisinopril 20 mg tablet 20 mg PO DAILY 08/07/2207/20 History aspirin 81 mg tablet,delayed 81 mg PO DAILY #90 tabs 0 12/04/22 09/28/24 Rx release dapagliflozin propanediol 10 mg 10 mg PO DAILY GENERIC for [facility] 08/14/23 09/28/24 History tablet atorvastatin 20 mg tablet 10 mg PO QHS 10/01/23 History levothyroxine 50 mcg tablet 75 mcg PO DAILY 10/01/23 0 09/28/24 History carvedilol 12.5 mg tablet 12.5 mg PO BID #180 TABLETS 03/01/24 09/28/24 Rx cholecalciferol (vitamin D3) 350 350 mcg PO QWEEK 07/2009/28/24 History mcg (14,000 unit) capsule Ejection fraction %: 35 Have you fallen in the past year?: No PFSH Medical History Abnormal stress test Cardiomyopathy Claudication of lower extremity Coronary artery disease Diabetes mellitus Dizziness Dyslipidemia Fatigue History of smoking HTN (hypertension) Hyperlipidemia Hypothyroidism Peripheral artery disease Surgical History Presence of implantable cardioverter-defibrillator (ICD) Family History Brother Cancer prostate Other Heart disease Social History Smoking Status: Former smoker how long ago did patient quit smokinyr alcohol intake: current alcohol intake frequency: a few times a month substance use type: does not use caffeine: Yes Type: carbonated beverages ROS Const Const: Negative for fatigue, weakness, headache(s) or weight gain ENT ENT: Negative for headache(s), dizziness, Nosebleed/epistaxis or balance problems Cardio Chest Pain: No Palpitations: No Edema: None Muscle aches with walking: None Resp Respiratory: Negative for SOB with activity, SOB at rest or SOB orthopneaundefinedSOB lying down GI GI: Negative nausea, vomiting or heartburn Musc Musc: Negative for muscle aches/ myalgia, muscle weakness, joint pain or balanceproblems Neuro Neuro: Negative for dizziness, lightheadedness, near syncope, syncope, headache(s) or weakness Endo Endo: Negative for fatigue Cardiology Exam Const Appearance: comfortable and no acute distress Nutritional Appearance: well nourished Neck Neck: no JVD Carotids: Negative bruit Chest Auscultation: Bilateral: Clear to Auscultation Cardio Rate: regular rate Rhythm: regular rhythm Heart sounds: S1 normal and S2 normal Neuro General: patient alert, patient awake and patient oriented x3 Extremities Lower Extremity Edema: None: Bilateral Supplemental Info Supplemental Information Echocardiogram 01/13/2023: Interpretation Summary The estimated ejection fraction is 35 %. Stage 1 diastolic dysfunction. Mild eccentric left ventricular hypertrophy. Mildly dilated left ventricle. Severe inferior and apical hypokinesis. The study was technically difficult. Contrast injection was performed. ECHOCARDIOGRAM 11/11/2022: Interpretation Summary Moderately dilated left ventricle. The left ventricular ejection fraction is 35 %. There is moderate global hypokinesis of the left ventricle. Severe posterior and inferior hypokinesis. Aortic sclerosis, no stenosis. STRESS TEST 10/10/22: Perfusion SPECT analysis: Review of the stress images demonstrate normal uptake of tracer noted in all areas of the myocardium except for the inferior wall with a large perfusion defect involving the entire inferior wall.? The resting images similar demonstrated normal uptake of tracer noted in all areas of the myocardium exceptfor the inferior wall.? The above is suggestive of an extensive previous inferior infarct.? No ischemia is noted though mild imani-infarct ischemia cannotbe completely excluded.. Gated SPECT analysis: The gated ejection fraction is 27%. Conclusion: Abnormal pharmacologic myocardial perfusion stress test. Reduced ejection fraction. Previous extensive inferior infarct with minimal imani-infarct ischemia. Lower Ext Art Exam w/o Exercise 10/17/2023: Triphasic and biphasic Doppler waveforms are noted at ankle level on the right. Monophasic Doppler waveforms are noted at ankle level on the left. Pulse-volume recordings appear diminished at calf, ankle, and digital levels on the left. The resting right ankle-brachial index isnormal. The resting left ankle-brachial index is moderately diminished. The right digital-brachial index is mildly diminished. The left digital-brachial index is moderately diminished. Arterial flow appears normal at ankle level on the right. There is evidence of mild arterial occlusive disease at digital level on the right. There is evidence of moderate arterial occlusive disease at ankle and digital levels on the left. ANKLE BRACHIAL INDEX 11/11/2022: Interpretation Summary Right LINDA 0.88, moderate arterial insufficiency. Doppler/PVR waveforms of the right ankle moderately diminished at rest. Left LINDA 0.44, severe arterial insufficiency. Doppler/PVR waveforms of the left ankle severely diminished at rest. CAROTID DUPLEX 12/04/2022: Interpretation Summary Mild (<50%) stenosis right extracranial internal carotid. Mild (<50%) stenosis left extracranial internal carotid. Patent and antegrade vertebrals bilaterally. Assessment and Plan Assessment and Plan (1) Coronary artery disease: Status: Chronic Plan: History of inferior MO. Aspirin, beta-blockers, statins. Check Lexiscan stress Myoview to evaluate for silent ischemia. (2) Cardiomyopathy: Status: Chronic Plan: Functional class II congestive heart failure. Lisinopril, carvedilol, Farxiga. Repeat echocardiogram. (3) Presence of implantable cardioverter-defibrillator (ICD): Status: Chronic Comment: SICD implant at [facility] DR. Kothari on 06/02/23 Plan: Continue to follow at the pacemaker clinic. (4) HTN (hypertension): Status: Chronic Plan: Carvedilol and lisinopril. (5) Dyslipidemia: Status: Chronic Plan: LDL was above goal. Increase atorvastatin to 20 mg daily. (6) Peripheral artery disease: Status: Chronic Comment: LINDA 11/11/22 Interpretation Summary: Right LINDA 0.88, moderate arterial insufficiency. Doppler/PVR waveforms of the right ankle moderately diminished at rest. Left LINDA 0.44, severe arterial insufficiency. Doppler/PVR waveforms of the left ankle severely diminished at rest. Plan: For walk/exercise therapy. Risk factor modification. (7) Hypothyroidism: Status: Chronic Plan: On levothyroxine. Continue to manage as per primary care physician. (8) Diabetes mellitus: Status: Chronic Plan: As per primary care physician. Orders: Orders US ABD AORTA SCREEN/AAA Today I73.9 - Peripheral vascular disease, unspecified Plan Check ultrasound abdominal aorta to evaluate for AAA. Coding Level of Care Code Off vis,est,level 4 Diagnoses Coronary artery disease I25.10 Cardiomyopathy I42.9 Presence of implantable cardioverter-defibrillator (ICD) Z95.810 HTN (hypertension) I10 Dyslipidemia E78.5 Peripheral artery disease I73.9 Hypothyroidism E03.9 Diabetes mellitus E11.9 Coding Level of Care Code Off vis,est,level 4 Diagnoses Coronary artery disease I25.10 Cardiomyopathy I42.9 Presence of implantable cardioverter-defibrillator (ICD) Z95.810 HTN (hypertension) I10 Dyslipidemia E78.5 Peripheral artery disease I73.9 Hypothyroidism E03.9 Diabetes mellitus E11.9 Clinical Quality Measures Falls Risk Screening/Assistive Devices Have you fallen in the past year?: No Cardiac Ejection fraction %: 35 09/28/24 1302 <Electronically signed by Gabriela Rodríguez MD> Date _ Gabriela Rodríguez MD Cosigner Signature: Date (if applicable) CC: Ninoska MASS COMMUNICATIONS PROFESSOR-C Lauren Webb ~ [facility] Work Phone: Reason for referral (narrative)No reason for referral [facility] Work Phone: Chief Complaint and Reason for Visit Chief Complaint HYPERTENSION Encounter for screening for malignant neoplasm of Essential (primary) hypertension NEED ORDERS Chief Complaint HYPERTENSION Encounter for screening for malignant neoplasm of Essential (primary) hypertension NEED ORDERS DYSPNEA, ABNORMAL EKG DYSPNEA, ABNORMAL EKG Chief Complaint HYPERTENSION Encounter for screening for malignant neoplasm of Essential (primary) hypertension NEED ORDERS DYSPNEA, ABNORMAL EKG DYSPNEA, ABNORMAL EKG ABN STRESS (CARMEN AMBRIZ) EORDER Reason for Visit Abnormal stress test Claudication of lower extremity Cardiomyopathy Coronary artery disease Diabetes mellitus Dyslipidemia HTN (hypertension) Chief Complaint HYPERTENSION Encounter for screening for malignant neoplasm of Essential (primary) hypertension NEED ORDERS DYSPNEA, ABNORMAL EKG DYSPNEA, ABNORMAL EKG ABN STRESS (CARMEN AMBRIZ) EORDER SOB Reason for Visit Abnormal stress test Claudication of lower extremity Cardiomyopathy Coronary artery disease Diabetes mellitus Dyslipidemia HTN (hypertension) Chief Complaint NEED ORDERS DYSPNEA, ABNORMAL EKG DYSPNEA, ABNORMAL EKG ABN STRESS (CARMEN AMBRIZ) EORDER SOB Consult-arterial insufficiency Personal history of nicotine dependence 6 wk FU CKD3 SOB Amb Documentation Reason for Visit Abnormal stress test Cardiomyopathy Claudication of lower extremity Coronary artery disease Diabetes mellitus Dyslipidemia HTN (hypertension) Peripheral artery disease Claudication of lower extremity Peripheral artery disease Cardiomyopathy Claudication of lower extremity Coronary artery disease Diabetes mellitus Dyslipidemia HTN (hypertension) Hypothyroidism Chief Complaint Personal history of nicotine dependence 6 wk FU CKD3 SOB Amb Documentation 3 M FU 2 ORDER DRS/PAPER & E ORDERS COLONOSCOPY Reason for Visit Cardiomyopathy Claudication of lower extremity Coronary artery disease Diabetes mellitus Dyslipidemia HTN (hypertension) Hypothyroidism Peripheral artery disease Cardiomyopathy Claudication of lower extremity Coronary artery disease Diabetes mellitus Dyslipidemia HTN (hypertension) Hypothyroidism Peripheral artery disease Positive occult stool blood test Chief Complaint 3 M FU 2 ORDER DRS/PAPER & E ORDERS COLONOSCOPY Pacer Check Remote 1 W WOUND CHECK INTS & DR TAVARES SCANNED ORDER Reason for Visit Cardiomyopathy Claudication of lower extremity Coronary artery disease Diabetes mellitus Dyslipidemia HTN (hypertension) Hypothyroidism Peripheral artery disease Positive occult stool blood test Presence of implantable cardioverter-defibrillator (ICD) Cardiomyopathy Chief Complaint Admit Date 3 ORDERING DOCTORS May 24, 2024 1 0:23am Pacer Check Remote June 07, 2024 2:51am Pacer Check Remote July 15, 2024 9:0 0am annual in-clinic f/u July 15, 2024 12 :55pm Pacer Check Remote September 06, 2024 2:51a m Reason for Visit Admit Date Presence of implantable cardioverter-def ibrillator (ICD) July 15, 2024 12:55pm Cardiomyopathy July 15, 2024 12: 55pm Chief Complaint Admit Date Pacer Check Remote June 07, 2024 2:51am Pacer Check Remote July 15, 2024 9:0 0am annual in-clinic f/u July 15, 2024 12 :55pm Pacer Check Remote September 06, 2024 2:51a m 6 M FU September 28, 2024 12:52 pm Reason for Visit Admit Date Cardiomyopathy July 15, 2024 12: 55pm Presence of implantable cardioverter-def ibrillator (ICD) July 15, 2024 12:55pm Cardiomyopathy September 28, 2024 12:52 pm Coronary artery disease September 28, 2024 1 2:52pm Diabetes mellitus September 28, 2024 12:52 pm Dyslipidemia September 28, 2024 12:52 pm HTN (hypertension) September 28, 2024 12:52 pm Hypothyroidism September 28, 2024 12:52 pm Peripheral artery disease September 28, 2024 12:52pm Presence of implantable cardioverter-def ibrillator (ICD) September 28, 2024 12:52pm Advance Directives No Advanced Directives Records Found Advance Directive Response Recorded Date/ Time Living Will No August 07, 2022 5:52pm Power of Childcare Director No August 07 5:52pm Advance Directive Response Recorded Date/ Time Living Will No August 07, 2022 4:52pm Power of Childcare Director No August 07 4:52pm Advance Directive Response Recorded Date/ Time Living Will No August 07, 2022 5:52pm Do you have a Healthcare Power of Childcare Director? No August 07, 2022 5:52pm Family History No Family History Records Found Relationship Condition Age at Onset Recorded Date/T bia Not Specified Cardiac disease Unknown brother Malignant neoplasm Unknown Summary Purpose Additional Source Comments Care Teams (unrecognized sec tion and content) Team Status: Active Member Role Status [facility] Primary Care Provider A ctive Team Status: Inactive Member Role Status [facility] Primary Care Provider A ctive Dr. Jeovanny Ontiveros , DO Attending Provide r, Referring Provider, Emergency Provider Active Team Status: Inactive Member Role Status [facility] Primary Care Provider A ctive Lauren Webb MASS COMMUNICATIONS PROFESSOR, MASS COMMUNICATIONS PROFESSOR-C Attending Provider, Referrin g Provider Active Team Status: Active Member Role Status [facility] Primary Care Provider A ctive Lauren Webb MASS COMMUNICATIONS PROFESSOR, MASS COMMUNICATIONS PROFESSOR-C Attending Provider, Referrin g Provider Active Team Status: Active Member Role Status [facility] Primary Care Provider A ctive Laurenflower Webb MASS COMMUNICATIONS PROFESSOR, MASS COMMUNICATIONS PROFESSOR-C Referring Provider, Other Pr ovider Active Dr. Moose Espinosa MD Attending Provider Active Team Status: Inactive Member Role Status [facility] Primary Care Provider A ctive Lauren Jon MASS COMMUNICATIONS PROFESSOR, MASS COMMUNICATIONS PROFESSOR-C Attending Prov ider, Referring Provider, Other Provider Active Team Status: Inactive Member Role Status [facility] Primary Care Provider, Referring Provider Active Dr. Gabriela Rodríguez MD Attending Provider Active Team Status: Inactive Member Role Status [facility] Primary Care Provider A ctive Dr. Gabriela Rodríguez MD Attending Provider, Referring Pr ovider Active Team Status: Active Member Role Status [facility] Primary Care Provider A ctive Dr. Jeovanny Malave MD Attending Provider Active Team Status: Active Member Role Status [facility] Primary Care Provider A ctive Dr. Gabriela Rodríguez MD Attending Provider Active Team Status: Active Member Role Status [facility] Primary Care Provider A ctive Dr. Jeovanny Malave MD Attending Provider Active Dr. Gabriela Rodríguez MD Referring Provider Active Team Status: Inactive Member Role Status [facility] Primary Care Provider, Referring Provider Active LUISITO Decker Attending Provider Active Team Status: Active Member Role Status [facility] Primary Care Provider A ctive Dr. Jeovanny Malave MD Attending Provider Active LUISITO Decker Referring Provider Active Team Status: Active Member Role Status [facility] Primary Care Provider A ctive Otto Curry MASS COMMUNICATIONS PROFESSOR, MASS COMMUNICATIONS PROFESSOR-C Attending Provider Active Team Status: Inactive Member Role Status [facility] Primary Care Provider A ctive LUISITO Decker Attending Provider, Referring Provid er Active Team Status: Active Member Role Status [facility] Primary Care Provider A ctive Dr. Gabriela Rodríguez MD Attending Provider, Referring Pr ovider Active Team Status: Inactive Member Role Status [facility] Primary Care Provider A ctive Dr. Carroll Martinez MD Attending Provider, Referri ng Provider Active Team Status: Inactive Member Role Status [facility] Primary Care Provider, Referring Provider Active Dr. Rivera Dooley MD Attending Provider Active Team Status: Inactive Member Role Status [facility] Primary Care Provider A ctive Dr. Gabriela Rodríguez MD Attending Provider, Referring Pr ovider Active Lauren Webb MASS COMMUNICATIONS PROFESSOR, MASS COMMUNICATIONS PROFESSOR-C Other Provider Active Team Status: Inactive Member Role Status [facility] Primary Care Provider, Referring Provider Active Rizwana Kellogg Attending Provider Active Team Status: Inactive Member Role Status [facility] Primary Care Provider A ctive Dr. Moose Espinosa MD Attending Provider Active Team Status: Inactive Member Role Status [facility] Primary Care Provider A ctive Dr. Carroll Martinez MD Attending Provider, Referri ng Provider Active Lauren Webb MASS COMMUNICATIONS PROFESSOR, MASS COMMUNICATIONS PROFESSOR-C Other Provider Active Otto Curry MASS COMMUNICATIONS PROFESSOR, MASS COMMUNICATIONS PROFESSOR-C Other Provider Active Team Status: Active Member Role Status Dates Lauren Webb VSC, MASS COMMUNICATIONS PROFESSOR-C Primary Care Provider Activ e Team Status: Inactive Member Role Status Dates Lauren Webb VSC, MASS COMMUNICATIONS PROFESSOR-C Primary Care Provider Activ e Start: May 24, 2024 End: May 24, 2024 Lauren Webb VSC, MASS COMMUNICATIONS PROFESSOR-C Attending Provider Active Start: May 24, 2024 End: May 24, 2024 Laruen HERNANDEZC, MASS COMMUNICATIONS PROFESSOR-C Referring Provider Active Start: May 24, 2024 End: May 24, 2024 Nona Beltran MASS COMMUNICATIONS PROFESSOR-C Other Provider Active S tart: May 24, 2024 End: May 24, 2024 Destini Sanders PA, PA Other Provider Active Start: May 24, 2024 End: May 24, 2024 Team Status: Inactive Member Role Status Dates Lauren Webb VSC, MASS COMMUNICATIONS PROFESSOR-C Primary Care Provider Activ e Start: June 07, 2024 End: June 07, 2024 Dr. Moose Espinosa MD Attending Provider Active S tart: June 07, 2024 End: June 07, 2024 Team Status: Inactive Member Role Status Dates Lauren Webb VSC, MASS COMMUNICATIONS PROFESSOR-C Primary Care Provider Activ e Start: July 15, 2024 End: July 15, 2024 Dr. Moose Espinosa MD Attending Provider Active S tart: July 15, 2024 End: July 15, 2024 Team Status: Inactive Member Role Status [facility] Referring Provider Acti ve Start: July 15, 2024 End: July 15, 2024 Lauren OLIVO, MASS COMMUNICATIONS PROFESSOR-C Primary Care Provider Activ e Start: July 15, 2024 End: July 15, 2024 Dr. Moose Espinosa MD Attending Provider Active S tart: July 15, 2024 End: July 15, 2024 Team Status: Inactive Member Role Status Dates Lauren OLIVO, MASS COMMUNICATIONS PROFESSOR-C Primary Care Provider Activ e Start: September 06, 2024 End: September 06, 2024 Dr. Moose Espinosa MD Attending Provider Active S tart: September 06, 2024 End: September 06, 2024 Team Status: Inactive Member Role Status Dates Laurenflower OLIVO, MASS COMMUNICATIONS PROFESSOR-C Primary Care Provider Activ e Start: September 28, 2024 End: September 28, 2024 Lauren OLIVO, MASS COMMUNICATIONS PROFESSOR-C Referring Provider Active Start: September 28, 2024 End: September 28, 2024 Dr. Gabriela Rodríguez MD Attending Provider Active Start: September 28, 2024 End: September 28, 2024 Goals (unrecognized section and content) Goals may be documented in a n alternate sectionGoals may be documented in an alternate sectionGoals may be documented in an alternate sectionGoals may be documented in an alternate sectionGoals may be documented in an alternate sectionGoals may be documented in an alternate sectionGoals may be documented in an alternate sectionGoals may be documented in an alternate sectionGoals may be documented in an alternate sectionGoals may be documented in an alternate sectionGoals may be documented in an alternate section (unrecognized sect ion and content) No Status Records FoundNo Status Records Found INFORMATION SOURCE (unrecogn ized section and content) DATE CREATED AUTHOR 06/10/2023 [facility] DATE CREATED AUTHOR AUTHOR'S GORDONIZ ATDAMARI 11/10/2024 [facility] FOR RECORDS PERTAINING TO PATIENTS WHO ARE [...] BE BASED ON THE PRIMARY CLINICAL RECORDS. [facility] [employer] [facility]. provides no warranty or guarantee of the accuracy or completeness of information in this document.
--- NOTE | 2024-11-12 06:41 | ART_ITS ---
Reason For Study : PVD Procedure A bilateral lower extremity continuous wave Doppler with analog waveform analysis,segmental pressures,and ankle brachial indexes with exercise. Left Segmental Pressures Left brachial= 128mmHg. Left high thigh = 126mmHg. Left low thigh = 97mmHg. Left calf = 103mmHg. Left posterior tibial artery = 73mmHg. Left dorsalis pedis artery = 74mmHg. Left digit = 66 mmHg. The left posterior tibial artery waveforms are monophasic. The left dorsalis pedis waveforms are monophasic. Right Segmental Pressures Right brachial= 136mmHg. Right posterior tibial artery = 151mmHg. Right dorsalis pedis artery = 114mmHg. Right digit = 84 mmHg. The right posterior tibial artery waveforms are triphasic. The right dorsalis pedis waveforms are triphasic. Indices The right ankle brachial index by the posterior tibial artery is 1.11. The right ankle brachial index by the dorsalis pedis is 0.84. The right digital-brachial index is 0.62. The right post exercise ankle brachial index is 0.63. The left ankle brachial index by the posterior tibial artery is 0.54. The left ankle brachial index by the dorsalis pedis is 0.54. The left digital-brachial index is 0.49. The left post exercise ankle brachial index is 0.25. VL/Lower Ext Art Exam w/ Exercise Interpretation Summary Right LINDA 1.11, normal. Doppler/PVR waveforms of the right leg normal at rest. TBI diminished, pedal/digit disease vs spasm. Right lower extremity with abnormal response to exercise and post exercise LINDA in the moderate category. Left LINDA 0.54, moderate arterial insufficiency. Doppler/PVR waveforms and segme ntal pressures reveal aorto-iliac, proximal femoral, infrapopliteal disease. Left lower extremity with abnormal response to exercise and post exercise LINDA i n the severe category. Ordering Physician: Gabriela Colunga Referring Physician: Lauren Webb Performed By: NICOLAS BARRETT T
--- NOTE | 2024-11-12 06:41 | AAAS_ITS ---
Reason For Study Reason For Study: PAD Aorta Measurements Aorta Doppler Measurements Proximal aorta measures1.72cm x 1.90cm. in cross-sectional Peak systolic flow velocities within the proximal aorta axis. measure 110 cm/sec. Proximal aorta measures1.86cm. in longitudinal axis. Peak systolic flow velocities within the mid aorta measure Mid aorta measures2.85cm x 2.94cm. in cross-sectional axis. 54 cm/sec. Mid aorta measures2.67cm. in longitudinal axis. Peak systolic flow velocities within the distal aorta Distal aorta measures2.06cm x 2.14cm. in cross-sectional measure 40 cm/sec. axis. Distal aorta measures1.94cm. in longitudinal axis. Left Iliac Artery Left iliac artery measures 1.50cm x 1.58 cm. in the cross-sectional axis. Left iliac artery measures 1.45 cm. in the longitudinal axis. Peak systolic velocity in the left iliac artery measures 43 cm/sec. Right Iliac Artery Right iliac artery measures 1.34cm x 1.28 cm. in the cross-sectional axis. Right iliac artery measures 1.37 cm. in the longitudinal axis. Peak systolic velocity in the right iliac artery measures 42 cm/sec. Procedure Aorta IVC Iliac vasculature or bypass grafts [id number]. Exam performed in department. VL/AAA Screening Interpretation Summary Aorta patent with ectasia to 2.94 cm. Right iliac artery patent with normal velocities, ectasia to 1.37 cm. Left iliac artery patent with normal velocities, ectasia to 1.58 cm. Ordering Physician: Gabriela Colunga Referring Physician: Lauren Webb Performed By: Nelsy Curry, MISHA, RVT
--- NOTE | 2024-11-12 09:36 | STRESSREP ---
Stress Test Report Date: 11/12/2024 Procedure: Pharmacologic stress nuclear imaging study Indications: Coronary artery disease Consent: Per the patient Procedure: The patient underwent pharmacologic (Regadenoson 0.4mg ) evaluation with a peak heart rate of 82 beats per minute (55%predicted maximal heart rate) and a peak blood pressure of 130/80 mmHg. The baseline ECG demonstrated sinus rhythm. The peak pharmacologic ECG did not show any ischemic changes. Occasional PVC at baseline and post pharmacological infusion. There was no complaint of chest discomfort during pharmacologic infusion or recovery. The patient was injected with 12.2 millicuries of technetium 99m Cardiolite and subsequently rest SPECT Cardiolite nuclear imaging was obtained in the horizontal long, vertical long, and short axis views. The patient underwent pharmacologic (Regadenoson) evaluation. The patient was injected with 35.0 millicuries of technetium 99m Cardiolite and subsequently stress SPECT Cardiolite nuclear imaging was obtained in the horizontal long, vertical long, and short axis views. A gated Cardiolite study at peak stress was obtained. The examination was stopped secondary to completion of protocol. Rest and stress SPECT Cardiolite nuclear imaging status post realignment, normalization, and attenuation correction demonstrate large fixed inferior defect consistent with prior large inferior [place]. Mild reversible defect of the lateral wall consistent with mild lateral wall ischemia. There is end systolic thickening and brightening. The gated study shows inferior akinesis. The reported LVEF is 40%. Impression: 1. Pharmacologic (Regadenoson) evaluation 2. Peak pharmacologic ECG with no diagnostic ischemic change. 3. No significant dysrhythmias noted. 5. Large inferior fixed defect consistent with prior large inferior [place]. Mild ischemia of the lateral wall. 6. The gated Cardiolite study reports an LVEF of 40%. This note was generated with [employer] software. It may contain incorrect words, spelling, and punctuation that were not noted in checking the note before signing.
== END | disposition home or self-care (01) ==
LOC: CVS 06:36
PROVIDERS: PCP Nurse Practitioner Family; Referring Provider Internal Medicine Cardiovascular Disease; Visit Provider Internal Medicine Cardiovascular Disease
DX: I25.10 Atherosclerotic heart disease of native coronary artery without angina pectoris (principal); I73.9 Peripheral vascular disease, unspecified
CPT/HCPCS: 76706; 78452; 93017; 93924; A9500; A4216; J2785

== ENCOUNTER → 2024-12-13 | Outpatient (CLI) | payer MEDICARE, SELFPAY ==
[2024-12-13 09:25] LABS: Hematocrit 42.7 % (40-54); Hemoglobin 14.1 g/dL (13.0-16.5); Immature Granulocytes Count 0.010 X10^3/uL (0.0-0.0); Mean Corp Hgb Conc 33.0 g/dL (32-36); Mean Corpuscular Volume 93.8 fL (80-94); Mean Platelet Vol. 9.1 fl (6.2-12.0); NRBC Flagged by Analyzer 0 % (0-5); Platelet Count 167 K/mm3 (150-450); RBC Distribution Width CV 14.4 % (11.6-14.6); RBC Distribution Width SD 49.4 fl (35.1-43.9); Red Blood Count 4.55 M/mm3 (4.6-6.2); White Blood Count 6.0 K/mm3 (4.4-11.0)
[2024-12-13 09:56] LABS: Creatinine, Urine (random) 104.00 mg/dL (39.00-259.00); Microalbumin,Random Urine < 12.0 mg/L (<20 mg/L); Protein, Urine (Random) < 6.0 mg/dL (0.0-12.0); Protein:Creat Ratio UNABLE TO CALCULATE mg/g CRE (0-200)
[2024-12-13 10:06] LABS: AST(SGOT) 21 U/L (<=37); Alanine Aminotransfer ALT/SGPT 15 U/L (<=46); Albumin, Serum 4.4 g/dL (3.4-4.8); Alkaline Phosphatase 103 U/L (40-129); Anion Gap 10 (5-15); BUN 24 mg/dL (4-19); BUN/Creat Ratio 14.2 RATIO (10-20); Calcium,Total 9.9 mg/dL (7.6-11.0); Carbon Dioxide 24.1 mmol/L (21.0-32.0); Chloride 101 mmol/L (98-108); Cholesterol 140 mg/dL (<=200); Globulin 3.6 g/dL (2.2-4.2); Glucose 131 mg/dL (70-99); Low Density Lipoprotein Calc. 75 mg/dL; Potassium 5.2 mmol/L (3.3-5.1); Triglycerides 139 mg/dL; Very Low Density Lipoprotein 28 mg/dL (5-40); cholesterol:hdl ratio screen 3.77
[2024-12-13 10:14] LABS: Albumin, Serum 4.5 g/dL (3.4-4.8); Anion Gap 11 (5-15); BUN 24 mg/dL (4-19); BUN/Creat Ratio 14.5 RATIO (10-20); Calcium,Total 9.8 mg/dL (7.6-11.0); Carbon Dioxide 23.3 mmol/L (21.0-32.0); Chloride 101 mmol/L (98-108); Glucose 129 mg/dL (70-99); Potassium 5.2 mmol/L (3.3-5.1); Vitamin D,25 Hydroxy 57.2 ng/mL (30-100)
== END | disposition home or self-care (01) ==
PROVIDERS: Internal Medicine Cardiovascular Disease; PCP Nurse Practitioner Family; Referring Provider Nurse Practitioner Family; Visit Provider Nurse Practitioner Family
DX: I12.9 Hypertensive chronic kidney disease with stage 1 through stage 4 chronic kidney disease, or unspecified chronic kidney disease (principal); E11.22 Type 2 diabetes mellitus with diabetic chronic kidney disease; N18.32 Chronic kidney disease, stage 3b; E55.9 Vitamin D deficiency, unspecified; E78.5 Hyperlipidemia, unspecified
CPT/HCPCS: 36415; 80053; 80061; 80069; 82043; 82306; 82570; 83036; 84156; 85025

== ENCOUNTER → 2024-12-28 | Outpatient (CLI) | payer MEDICARE, SELFPAY ==
[2024-12-28 11:42] LABS: Anion Gap 9 (5-15); BUN 20 mg/dL (4-19); BUN/Creat Ratio 13.7 RATIO (10-20); Calcium,Total 9.4 mg/dL (7.6-11.0); Carbon Dioxide 23.6 mmol/L (21.0-32.0); Chloride 103 mmol/L (98-108); Glucose 123 mg/dL (70-99); PSA,Total - Annual Screen 6.10 ng/mL (0.02-4.00); Potassium 4.8 mmol/L (3.3-5.1)
== END | disposition home or self-care (01) ==
PROVIDERS: PCP Nurse Practitioner Family; Referring Provider Student in an Organized Health Care Education/Training Program; Visit Provider Student in an Organized Health Care Education/Training Program
DX: Z12.5 Encounter for screening for malignant neoplasm of prostate (principal); E87.5 Hyperkalemia
CPT/HCPCS: 36415; 80048; 84153; G0103